=== PATIENT | male | born 1990 | race Caucasian/White ===

== ENCOUNTER 2017-03-28 17:38 | Emergency (ER) | payer MEDICAID, SELFPAY ==
[2017-03-28 17:48] VITALS: BP 135/89; PULSE 80; RESP 16; TEMP 36.7; O2SAT 99; BMI 29.2
--- NOTE | 2017-03-28 18:32 | RAD_ITS ---
XR Hand Min 3 Views INDICATION: PT STATED INJURY TO DIP JOINT AREA OF 3RD DIGIT WITH LACERATION COMPARISON: None TECHNIQUE: 3 views of the right hand FINDINGS: There is evidence of a linear fracture in the radial aspect of the distal phalanx of the right middle finger extending from the base to the tuft. There is no significant diastases at the fracture site. The fracture extends to the periphery to the articular surface. There is no evidence of dislocation. There is no evidence of radiopaque foreign body. RAD/Hand Min 3 Views IMPRESSION: Not significantly displaced fracture of the distal phalanx of the right middle finger. at 1903 Reported and signed by: Shelbi Peoples MD Electronically Signed: Shelbi Peoples MD at 18:02 EST Tel , Service support ,
--- NOTE | 2017-03-28 18:34 | ED.VISSUMM ---
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 The nail is intact the rest of the hand function are entirely normal Test Results: [] Emergency Department Course and Treatment: [] This we had copiously cleansed and irrigated the area, I recommended suturing but he declined that he wanted a Steri-Strip and a splint as he was concerned a suturing would affect his ability to execute his job, in any case at his request the area was again sterilely prepped irrigated and then a Steri-Strip was placed Per radiology shows a linear nondisplaced fracture distal phalanx I explained this to the patient I explained the concept of open fracture aluminum splint x-ray was obtained that was unremarkable his tetanus is up-to-date he was instructed on wound care ice elevation of follow-up his family doctor next few days, he indicates at work his job is very clean and that he does not work with any dirt or grinding but at home he can work on engines etc. and he understands need to keep the hand and finger completely clean and dry until he follows up as there is a risk of infection if he does not, he will be started on Keflex referred to orthopedics he will wear the splint until he seen and return for change in symptoms, I did caution him of the concept of open fracture infection osteomyelitis need to follow-up orthopedics and he understands Treatment Plan: [] Disposition: [] Home stable Impression: [] 1 cm right middle finger laceration, linear nondisplaced fracture distal phalanx right middle finger tender to trauma This note was generated with [employer] software. It may contain incorrect words, spelling, and punctuation that were not noted in review of the chart prior to signing ED Disposition - Plan for ED Patient: Chief Complaint: Laceration Instructions: ED Fx Finger Open, ED Laceration All, ED Laceration Hand Prescriptions: Cephalexin [Keflex] 500 mg PO Q6 #40 cap Referrals: Sharif Morrow DO [STAFF PHYSICIAN] - John Paul Rodriguez DO [Primary Care Provider] -
--- NOTE | 2017-03-28 18:37 | ED.DEP ---
ED Disposition - Plan for ED Patient: Chief Complaint: Laceration Instructions: ED Laceration All, ED Laceration Hand Referrals: John Paul Rodriguez DO [Primary Care Provider] -
--- NOTE | 2017-03-28 19:42 | ED.DEP ---
ED Disposition - Plan for ED Patient: Chief Complaint: Laceration Instructions: ED Laceration All, ED Laceration Hand, ED Fx Finger Open Prescriptions: Cephalexin [Keflex] 500 mg PO Q6 #40 cap Referrals: John Paul Rodriguez DO [Primary Care Provider] - Sharif Morrow DO [STAFF PHYSICIAN] -
[2017-03-28] MEDS: Cephalexin 250 MG Capsule 500 MG PO (20:06)
[2017-03-28 20:07] VITALS: BP 138/99; PULSE 91; RESP 17; O2SAT 98
--- NOTE | 2017-03-28 20:08 | ED.RN ---
DISCHARGE INSTRUCTIONS GIVEN TO AND REVIEWED WITH PATIENT, PATIENT DENIES QUESTIONS OR CONCERNS AND VOICES UNDERSTANDING OF DISCHARGE INSTRUCTIONS. PT AMBULATES OUT OF ROOM WITHOUT DIFFICULTY.
== END 2017-03-28 20:08 | disposition home or self-care (01) ==
LOC: ED 18:38
PROVIDERS: Emergency Provider Emergency Medicine; Family Provider Student in an Organized Health Care Education/Training Program; PCP Student in an Organized Health Care Education/Training Program
DX: S61.212A Laceration without foreign body of right middle finger without damage to nail, initial encounter (principal); S62.662B Nondisplaced fracture of distal phalanx of right middle finger, initial encounter for open fracture; X58.XXXA Exposure to other specified factors, initial encounter; Y93.9 Activity, unspecified; Y92.9 Unspecified place or not applicable
CPT/HCPCS: 73130; 99283

== ENCOUNTER 2017-06-14 23:44 | Emergency (ER) | payer SELFPAY ==
[2017-06-14 23:45] VITALS: BP 138/93; PULSE 92; RESP 15; TEMP 36.8; BMI 30.2
--- NOTE | 2017-06-14 23:58 | ED.VISSUMM ---
- ER Visit Summary Date of Service: 06/14/17 Chief Complaint: Left shoulder injury History of Present Illness: The patient is a 26 M [id number] presents for evaluation concerns left shoulder injury. 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 There is no head injuries. Mild tingling of the fingers. No neck pain. No back pain. No medications taken prior to arrival. History of finger fracture in foot fracture in the past. Cannot recall the orthopedist at this time. Allergies to IV dye. Has tolerated Vicodin in the past. Physical Examination: General: Alert and oriented ?3, no acute distress HEENT: Normocephalic, atraumatic. Moist mucosa membranes Neck: supple, nontender. No midline tenderness. Cardiovascular: Regular rate and rhythm, no murmurs Respiratory: Normal breath sounds, symmetric, no distress Back: Nontender. Abdomen: Soft, nontender, nondistended Extremities: Left upper extremity: There was tenderness in distal clavicle and AC joint.. There is no deformities grossly seen. There is no proximal shoulder tenderness. Skin intact. Neuro: no focal neurological deficits. Test Results: Clavicle x-ray: No fracture Emergency Department Course and Treatment: Ice was placed, given a Vicodin. X-ray reviewed by myself shows no fracture. Reevaluation more tenderness at the AC joint region. Discussed ligament sprain. Discuss symptomatic treatment with anti-inflammatories. Patient states he has ibuprofen at home. He declined a sling. He will follow-up with his PCP for reevaluation. Treatment Plan: [] Disposition: Discharge Impression: Left acromioclavicular ligament sprain This note was generated with [employer] dictation software. It may contain incorrect words, spelling, and punctuation that were not noted in review of the chart prior to signing ED Disposition - Plan for ED Patient: Disposition: Home or Assisted Living Chief Complaint: Upper Extremity Injury Diagnosis: Sprain of left acromioclavicular joint, initial encounter Instructions: ED Sprain AC Joint Referrals: John Paul Rodriguez DO [Primary Care Provider] - 5-7 Days
[2017-06-15] MEDS: HYDROcodone Bitartrate/Apap 5/325 Tablet PO (00:01)
--- NOTE | 2017-06-15 00:05 | RAD_ITS ---
STUDY: X-RAY - LEFT CLAVICLE REASON FOR EXAM: Male, 26 years old. Pain after trauma. TECHNIQUE: 2 view(s) of the clavicle. COMPARISON: Left shoulder June 01, 2016. FINDINGS: Normal clavicle. Normal acromioclavicular articulation. Normal visualized sternoclavicular articulation. Normal visualized pulmonary apex. RAD/Clavicle IMPRESSION: Normal x-ray examination of the clavicle. Electronically Signed: Richard Johnson MD at 1:24 EDT , Service support ,
== END 2017-06-15 00:26 | disposition home or self-care (01) ==
PROVIDERS: Emergency Provider Emergency Medicine; Family Provider Student in an Organized Health Care Education/Training Program; PCP Student in an Organized Health Care Education/Training Program
DX: S43.52XA Sprain of left acromioclavicular joint, initial encounter (principal); R20.2 Paresthesia of skin; W22.8XXA Striking against or struck by other objects, initial encounter; Y93.9 Activity, unspecified; Y92.9 Unspecified place or not applicable; Z72.0 Tobacco use
CPT/HCPCS: 73000; 99282

== ENCOUNTER → 2017-10-13 10:41 | Outpatient (CLI) | payer MEDICAID, SELFPAY | PROVIDERS: Family Provider Student in an Organized Health Care Education/Training Program; PCP Student in an Organized Health Care Education/Training Program; Visit Provider Nurse Practitioner Primary Care | DX: R00.2 Palpitations (principal); R07.9 Chest pain, unspecified | CPT/HCPCS: 93225; 93226 ==

== ENCOUNTER 2017-12-27 15:54 | Emergency (ER) | payer MEDICAID, SELFPAY ==
[2017-12-27 15:56] VITALS: BP 133/82; PULSE 90; RESP 18; TEMP 36.3; O2SAT 99; BMI 34.4
--- NOTE | 2017-12-27 16:20 | RAD_ITS ---
STUDY: X-RAY CHEST REASON FOR EXAM: Male, 27 years old. Cold and cough TECHNIQUE: PA and lateral views of the chest. COMPARISON: Previous study of 06/19/2016 FINDINGS: The lungs are clear and expanded. There is no demonstrated pleural abnormality. Normal size heart. Normal mediastinum and leonardo. Normal visualized pulmonary arteries. Normal visualized aortic arch and descending thoracic aorta. There is a thoracolumbar scoliosis. Normal visualized ribs, clavicles, and shoulders. There is no demonstrated abnormality of the visualized soft tissue structures of the upper abdomen. RAD/Chest PA and Lateral IMPRESSION: Thoracolumbar scoliosis. No acute cardiopulmonary disease process is seen. Electronically Signed: Kyle Lewis MD at 17:12 EDT , Service support ,
--- NOTE | 2017-12-27 16:22 | ED.VISSUMM ---
- ER Visit Summary Date of Service: 12/27/17 Chief Complaint: Cough and congestion History of Present Illness: The patient is a 27 M who presents with cough and congestion that has been getting worse over the past 4 days. Patient states he went to urgent care today and was referred here because they are unable to do any x-rays after 2 PM. Patient states he has been coughing up some blood-streaked sputum over the past couple days. Patient admits to a sore throat that is worse with laying flat. Patient also admits to some nasal congestion and rhinorrhea. Patient admits to some sinus pressure. Physical Examination: Vital signs are stable. Patient is afebrile. Patient is in no acute distress. Oral mucosa is pink and moist. Nasal mucosa is congested. Neck is supple. Trachea is midline. There is no JVD or lymphadenopathy noted. Heart was regular rate and rhythm. Lungs are clear but diminished bilaterally. There is good respiratory effort noted. Abdomen is soft. Bowel sounds are normal. There is no tenderness. Cranial nerves II through XII are intact. There are no focal motor or sensory deficits noted. The remaining physical exam is within normal limits. Test Results: PA and lateral chest x-ray was obtained. There is no acute cardiopulmonary process. Emergency Department Course and Treatment: Patient was given a DuoNeb aerosol here. Patient was advised that this is most likely a viral upper respiratory infection. Patient was given prescription for Humibid DM. Patient was instructed to follow-up with his primary care physician in 7-10 days. Patient understood and was agreeable with the plan. All questions were answered. Disposition: Discharge home Impression: Upper respiratory infection This note was generated with [employer] dictation software. It may contain incorrect words, spelling, and punctuation that were not noted in review of the chart prior to signing ED Disposition - Plan for ED Patient: Disposition: Home or Assisted Living Chief Complaint: Cold Sx Diagnosis: Upper respiratory infection with cough and congestion Instructions: ED Upper Resp Infec No Abx Tx Prescriptions: Guaifenesin/D-Methorphan Hb [Humibid Dm] 1 tab PO Q12H PRN #20 tab.sr.12h PRN Reason: Cough Referrals: John Paul Rodriguez DO [Primary Care Provider] -
--- NOTE | 2017-12-27 16:25 | ED.DCSUM_ITS ---
- ER Visit Summary Date of Service: 12/27/17 Chief Complaint: Cough and congestion History of Present Illness: The patient is a 27 M who presents with cough and congestion that has been getting worse over the past 4 days. Patient states he went to urgent care today and was referred here because they are unable to do any x-rays after 2 PM. Patient states he has been coughing up some blood- streaked sputum over the past couple days. Patient admits to a sore throat that is worse with laying flat. Patient also admits to some nasal congestion and rhinorrhea. Patient admits to some sinus pressure. Physical Examination: Vital signs are stable. Patient is afebrile. Patient is in no acute distress. Oral mucosa is pink and moist. Nasal mucosa is congested. Neck is supple. Trachea is midline. There is no JVD or lymphadenopathy noted. Heart was regular rate and rhythm. Lungs are clear but diminished bilaterally. There is good respiratory effort noted. Abdomen is soft. Bowel sounds are normal. There is no tenderness. Cranial nerves II through XII are intact. There are no focal motor or sensory deficits noted. The remaining physical exam is within normal limits. Test Results: PA and lateral chest x-ray was obtained. There is no acute car diopulmonary process. Emergency Department Course and Treatment: Patient was given a DuoNeb aerosol here. Patient was advised that this is most likely a viral upper respiratory infection. Patient was given prescription for Humibid DM. Patient was instructed to follow-up with his primary care physician in 7-10 days. Patient understood and was agreeable with the plan. All questions were answered. Disposition: Discharge home Impression: Upper respiratory infection This note was generated with [employer] dictation software. It may contain incorrect words, spelling, and punctuation that were not noted in review of the chart prior to signing ED Disposition - Plan for ED Patient: Disposition: Home or Assisted Living Chief Complaint: Cold Sx Diagnosis: Upper respiratory infection with cough and congestion Instructions: ED Upper Resp Infec No Abx Tx Prescriptions: Guaifenesin/D-Methorphan Hb [Humibid Dm] 1 tab PO Q12H PRN #20 tab.sr.12h PRN Reason: Cough Referrals: John Paul Rodriguez DO [Primary Care Provider] -
[2017-12-27 16:47] VITALS: PULSE 92; RESP 19
[2017-12-27] MEDS: Ipratropium/Albuterol Sulfate 3 ML AMPUL.NEB INHALATION (16:47)
== END 2017-12-27 18:05 | disposition home or self-care (01) ==
PROVIDERS: Emergency Provider Emergency Medicine; Family Provider Student in an Organized Health Care Education/Training Program; PCP Student in an Organized Health Care Education/Training Program
DX: J06.9 Acute upper respiratory infection, unspecified (principal); Z72.0 Tobacco use
CPT/HCPCS: 71046; 94640; 99282

== ENCOUNTER 2018-04-27 00:46 | Emergency (ER) | payer MEDICAID, SELFPAY ==
[2018-04-27 00:47] VITALS: BP 137/104; PULSE 99; RESP 16; TEMP 36.9; O2SAT 97; BMI 32.3
--- NOTE | 2018-04-27 00:48 | RAD_ITS ---
STUDY: X-RAY - THORACIC SPINE REASON FOR EXAM: Male, 27 years old. Back pain TECHNIQUE: 3 view(s) of the thoracic spine were obtained. COMPARISON: None. FINDINGS: There is an increase in the normal thoracic kyphosis. There is dextroscoliosis of the lower thoracic. 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 There is 8mm posterior displacement of T12, it appears worse when compared to the study from June 01, 2016 it measured previously 6 mm. The soft tissue structures are unremarkable. 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 There is 8mm posterior displacement of T12, it appears worse when compared to the study from June 01, 2016 it measured previously 6 mm. Further evaluation by MRI would be recommended to exclude spinal cord compression. Electronically Signed: Fernando Benitez MD at 2:09 EST Tel , Service support ,
--- NOTE | 2018-04-27 00:51 | ED.VISSUMM ---
- ER Visit Summary Date of Service: 04/27/18 Chief Complaint: Back pain History of Present Illness: The patient is a 27 M presents to the emergency department back pain. 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 He states that he had sudden onset pain in his back. He states it is very tight and hurts to move. He has had similar pain in the past. He states that he does get recurrent back injuries from his line of work. He is never had back surgery. The pain does not radiate down his legs. He states he was having some tightness in his chest because of the pain in his back. This happened immediately when he was lifting. The pain does not radiate. He states he feels like he cannot get comfortable. He denies any weakness, numbness, or change in gait. Physical Examination: Afebrile, vitals unremarkable. Well-appearing male no acute distress. Head is normocephalic, atraumatic. Pupil's equal round reactive, extraocular muscles intact. Neck supple. Heart regular rate and rhythm. Lungs clear, chest nontender. Abdomen soft, nontender, nondistended. No pulsatile mass. Patient has paraspinal tenderness in the thoracic and lumbar area, but no bony tenderness. Straight leg raise is negative bilaterally. 2+ symmetric lower extremity pulses. 2+ reflexes. No clonus. No weakness of dorsiflexion, plantar flexion, or extensor hallucis longus bilaterally. Test Results: [] Emergency Department Course and Treatment: The patient had sudden onset pain when he was moving a heavy motor. He has no red flag symptoms. He has a normal steady gait. He has normal pulses in his lower extremities. He has normal reflexes. He did have some tenderness in the lower thoracic spine. Plain films were obtained. 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 There is no compression fracture. The patient was treated with anti-inflammatories and antispasmodics. He is more comfortable. He declined any other analgesics. At this time, I do feel that he is safe for outpatient therapy. He was counseled on concerning symptoms and reasons to return. Treatment Plan: [] Disposition: Discharge Impression: Acute thoracic strain This note was generated with [employer] software. It may contain incorrect words, spelling, and punctuation that were not noted in review of the chart prior to signing ED Disposition - Plan for ED Patient: Instructions: ED Sprain Thoracic Spine Prescriptions: Ibuprofen [Motrin] 800 mg PO TID PRN PRN #20 tab PRN Reason: Pain Cyclobenzaprine [Flexeril] 10 mg PO TID PRN #20 tab PRN Reason: Muscle Spasm Referrals: John Paul Rodriguez DO [Primary Care Provider] -
[2018-04-27] MEDS: Ketorolac 60 MG/2 ML Vial IM (01:16)
[2018-04-27] MEDS: Orphenadrine 60 MG/2 ML Ampul IM (01:16)
--- NOTE | 2018-04-27 01:33 | EKG12_ITS ---
Test Reason : BACK PAIN/CP Blood Pressure : / mmHG Vent. Rate : 093 BPM Atrial Rate : 093 BPM P-R Int : 200 ms QRS Dur : 090 ms QT Int : 348 ms P-R-T Axes : 032 005 020 degrees QTc Int : 432 ms Normal sinus rhythm with sinus arrhythmia Poor R wave progression Confirmed by VREA GRIFFITHS, JENNIFER ([id number]), film editor supervisor EVA GELLER ([id number]) on 04/28/2018 10:07:43 AM Referred By: PRIYANKA Confirmed By:JENNIFER GAMEZ MD
[2018-04-27 01:41] VITALS: BP 135/89; PULSE 78; RESP 16; O2SAT 97
== END 2018-04-27 01:43 | disposition home or self-care (01) ==
PROVIDERS: Emergency Provider Emergency Medicine; Family Provider Student in an Organized Health Care Education/Training Program; PCP Student in an Organized Health Care Education/Training Program
DX: S29.012A Strain of muscle and tendon of back wall of thorax, initial encounter (principal); X50.0XXA Overexertion from strenuous movement or load, initial encounter; Y93.89 Activity, other specified; Y92.9 Unspecified place or not applicable; Z72.0 Tobacco use
CPT/HCPCS: 72072; 93005; 96372; 99282

== ENCOUNTER 2018-07-30 20:27 | Emergency (ER) | payer MEDICAID, SELFPAY ==
[2018-07-30 20:28] VITALS: BP 153/81; PULSE 96; RESP 16; TEMP 36.5; O2SAT 98; BMI 29.4
--- NOTE | 2018-07-30 20:45 | RAD_ITS ---
STUDY: X-RAY - LEFT ANKLE REASON FOR EXAM: Male, 28 years old. Status post fall TECHNIQUE: 3 view(s) of the ankle. COMPARISON: None. FINDINGS: Normal visualized distal tibia and fibula. Normal medial and lateral malleoli. Normal tibiotalar articulation and ankle mortise. Normal visualized talus and calcaneus. The visualized subtalar, talonavicular, calcaneocuboid and tarsal articulations are normal. Visualized soft tissue edema along the lateral aspect of the foot. A fracture line is not definitively identified. RAD/Ankle min 3 Views IMPRESSION: Soft tissue edema lateral aspect of the foot no definitive visualized fracture. Electronically Signed: Adela Blanco MD at 21:18 EDT Tel , Service support ,
--- NOTE | 2018-07-30 20:45 | ED.VISSUMM ---
- ER Visit Summary Date of Service: 07/30/18 Chief Complaint: Left foot ankle injury History of Present Illness: The patient is a 28 M who was at work today. He was walking on uneven blacktop when he sustained an inversion injury. He notes pain laterally on the ankle and the foot. He was wearing his work boots which do not provide any significant ankle or lower leg stability. He denies any pain near his knee (near the fibular head) Physical Examination: Afebrile vital signs are stable Gen: Well-nourished well-developed Head: Normocephalic atraumatic Eyes: Perrl EOMI ENT: TMs clear no rhinorrhea moist mucous membranes Neck: Supple no lymphadenopathy no JVD nontender CVS: Regular rate rhythm no murmurs normal S1-S2 Respiratory: No distress clear to auscultation bilaterally chest nontender Abdomen: Soft nontender nondistended normal bowel sounds no masses Back: Nontender Extremity: There is no fibular head pain. No tibial shaft pain. There is tenderness over the lateral malleolus and over the fifth metatarsal. There is swelling and ecchymosis noted laterally on the foot and ankle the joint appears stable. Skin: Normal color no rash Neuro: alert orientated ?3 CN II-XII intact normal strength sensation reflexes gait cerebellar Psych: Normal affect normal mood Test Results: Foot and ankle films were obtained. No fractures identified Emergency Department Course and Treatment: Wrap will be applied. Patient is to aiyana wrap and ice at home. Follow-up with primary care if not improved in 10 to 14 days Impression: 1. Right foot and ankle ligamentous sprain This note was generated with [employer] dictation software. It may contain incorrect words, spelling, and punctuation that were not noted in review of the chart prior to signing ED Disposition - Plan for ED Patient: Disposition: Home or Assisted Living Instructions: ED Sprain Ankle W X Ray Referrals: John Paul Rodriguez DO [Primary Care Provider] - 10-14 Days if not better
--- NOTE | 2018-07-30 20:52 | RAD_ITS ---
STUDY: X-RAY - LEFT FOOT CLINICAL: Male, 28 years old. Status post fall TECHNIQUE: 3 view(s) of the foot. COMPARISON: None. FINDINGS: Normal talus, calcaneus, and tarsal bones. Normal visualized subtalar, talonavicular, calcaneocuboid, tarsal and tarsometatarsal articulations. Normal metatarsi. Normal metatarsophalangeal joint of the great toe. Normal tibial and fibular sesamoid bones. Normal interphalangeal joint of the great toe. Normal phalanges of the great toe. Normal second through fifth metatarsophalangeal joints. Normal interphalangeal joints and phalanges of the lesser toes. There is mild soft tissue edema on the lateral aspect of the foot without visualized fracture. RAD/Foot min 3 Views IMPRESSION: Soft tissue edema, no visualized fracture. Electronically Signed: Adela Blanco MD at 21:17 EDT Tel , Service support ,
[2018-07-30 21:42] VITALS: BP 153/85; PULSE 89; RESP 16; O2SAT 97
== END 2018-07-30 21:42 | disposition home or self-care (01) ==
PROVIDERS: Emergency Provider Emergency Medicine; Family Provider Student in an Organized Health Care Education/Training Program; PCP Student in an Organized Health Care Education/Training Program
DX: S93.402A Sprain of unspecified ligament of left ankle, initial encounter (principal); S93.602A Unspecified sprain of left foot, initial encounter; X50.1XXA Overexertion from prolonged static or awkward postures, initial encounter; Y93.01 Activity, walking, marching and hiking; Y92.9 Unspecified place or not applicable; J45.909 Unspecified asthma, uncomplicated; M79.7 Fibromyalgia; Z72.0 Tobacco use
CPT/HCPCS: 73610; 73630; 99282

== ENCOUNTER 2019-08-05 11:38 | Observation (INO) | payer MEDICAID, SELFPAY ==
[2019-08-05] VITALS (9 sets, daily range): BP systolic 130–149; BP diastolic 86–97; PULSE 73–94; RESP 18–20; TEMP 35.9–36.8; O2SAT 96–98; BMI 34.2; BMI 30.9; BMI 31.0
--- NOTE | 2019-08-05 12:08 | EKG12_ITS ---
Test Reason : Blood Pressure : / mmHG Vent. Rate : 087 BPM Atrial Rate : 087 BPM P-R Int : 196 ms QRS Dur : 100 ms QT Int : 376 ms P-R-T Axes : 020 019 009 degrees QTc Int : 452 ms Normal sinus rhythm Normal ECG Confirmed by CON GRIFFITHS, LAURA ([id number]), dictionary editor YADIRA ELIZALDE ([id number]) on 08/08/2019 1:28:28 PM Referred By: DULCE Confirmed By:LAURA ANDUJAR MD
--- NOTE | 2019-08-05 12:20 | RAD_ITS ---
STUDY: X-RAY CHEST REASON FOR EXAM: Male, 29 years old. WORSENING CHEST PAIN OVER LAST 1.5 WEEK TECHNIQUE: Single AP portable view of the chest. COMPARISON: None. FINDINGS: The lungs are clear and expanded. There is no demonstrated pleural abnormality. Normal size heart. Normal mediastinum and leonardo. Normal visualized pulmonary arteries. Normal visualized aortic arch and descending thoracic aorta. There is a mild levoscoliosis of the thoracic spine. Normal visualized ribs, clavicles, and shoulders. There is no demonstrated abnormality of the visualized soft tissue structures of the upper abdomen. RAD/Chest 1 View (Portable) IMPRESSION: Normal x-ray examination of the chest. Electronically Signed: Kyree Hogan, at 12:33 EDT , Service support ,
[2019-08-05 12:24] LABS: Absolute Lymphocyte Count 2.46 X10^3/uL (0.83-4.51); Absolute Neutrophil Count 4.7 X10^3/uL (2.0-7.7); Basophil# 0.07 X10^3/uL; Basophil% 0.8 % (0-1); Eosinophil# 0.22 X10^3/uL; Eosinophils% 2.6 % (0-5); Hematocrit 44.7 % (40-54); Hemoglobin 14.7 g/dL (13.0-16.5); Lymphocyte # 2.46 X10^3/ul (4.0); Lymphocyte % 29.6 % (19-41); Mean Corp Hgb Conc 32.9 g/dL (32-36); Mean Corpuscular Hgb 28.1 pg (27.0-32.0); Mean Corpuscular Volume 85.5 fL (80-94); Mean Platelet Vol. 9.9 fl (6.2-12.0); Monocyte# 0.83 X10^3/uL; NRBC Flagged by Analyzer 0 % (0-5); Neutrophil % 56.5 % (47-70); Platelet Count 312 K/mm3 (150-450); RBC Distribution Width CV 11.9 % (11.6-14.6); Red Blood Count 5.23 M/mm3 (4.6-6.2); White Blood Count 8.3 K/mm3 (4.4-11.0)
[2019-08-05 12:46] LABS: D-Dimer Quantitative (DVT/PE) 0.35 FEU/ug/m (0.27-0.49)
[2019-08-05 12:51] LABS: AST(SGOT) 15 U/L (15-37); Alanine Aminotransfer ALT/SGPT 37 U/L (16-61); Albumin, Serum 3.8 g/dL (3.2-5.0); Alkaline Phosphatase 124 U/L (45-117); Anion Gap 4 (5-15); BUN 12 mg/dL (7-18); BUN/Creat Ratio 10.3 RATIO (10-20); Bilirubin, Direct 0.13 mg/dL (0.00-0.30); Calcium,Total 9.7 mg/dL (8.5-10.1); Chloride 105 mmol/L (98-107); Creatinine, Serum 1.16 mg/dL (0.70-1.30); EST Glomerular Filtration Rate 79 mL/min (>60); Est Glom Filt Rate - Afr Amer 96 mL/min (>60); Estimated Creatinine Clearance 100.08 ml/min; Globulin 3.3 g/dL (2.2-4.2); Glucose 132 mg/dL (74-106); Potassium 3.7 mmol/L (3.5-5.1); Protein, Total 7.1 g/dL (6.4-8.2); Sodium Level 140 mmol/L (136-145)
[2019-08-05 13:00] LABS: BNP,B-Type NATRIURETIC PEPTIDE 3.1 pg/mL (0-100)
[2019-08-05] MEDS: Pantoprazole Sodium 40 MG Tablet PO (13:40)
--- NOTE | 2019-08-05 13:51 | ED.DCSUM_ITS ---
History of Present Illness Chief Complaint: Chest Pain Informant: Patient Onset: Weeks Quality: Pressure Location: Substernal Current Severity: Mild Maximum Severity: Moderate Worsened By: Exertion Relieved By: Rest Associated Symptoms: Dyspnea, Palpitations Narrative: Patient is a 29-year-old male with history of tobacco use, some type of cardiac valve issue, possible hypertension and diabetes presenting with worsening dyspnea on exertion and chest pain. Patient states he gets pain that he describes as a pressure in the center of his chest and is worse with exertion. He gets associated palpitations. He states he has had mild symptoms of this for the past year and a half but is been significantly worse over the past 2-1/2 weeks. He also gets a little bit of pain in his back. He also reports that he gets episodes of weakness in his hands. 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 This is bilateral. There is no associated numbness. He denies any neck pain. States he does have acid reflux and thinks he might have Crohn's disease. He states he is been out of all of his medications because he is not been able get refills due to everything being closed with coronavirus. He does have associated nausea and alternates between constipation and diarrhea. He denies any blood in his stool. He denies any vomiting. He denies any swelling of his legs. Patient states that he really wants to figure out what is going on but is having a hard time following up because he still busy at work and with family. He notes he has had increased rest in his life lately as well. CVD Risk Factors: Hypertension, Family History 1' </=55, Smoking PE Risk Factors: Negative for: Recent Travel/Surgery, Recenet Immobilization, Prior DVT or PE, Cancer, OCP + Smoking + >/=35 Past Medical History - Allergies and Home Meds Allergies/Adverse Reactions: Allergies Iodinated Contrast Media Allergy (Severe, Verified 08/05/19 15:40) Hives Past Medical History: - - GERD, HTN, valve disorder, possbile diabetes Surgical History: no surgical history Lives: Spouse/ Significant Other, With Family Smoking Status: Heavy Smoker (>10/day) Alcohol: Occasional Drugs: None - Family History Maternal Family History: Reports: Heart Disease Paternal Family History: Reports: Heart Disease Review of Systems General: Denies: Chills, Fever, Sweats Eyes: Denies: Visual changes - bilaterally, Diplopia ENT: Denies: Rhinorrhea, Sore throat Cardiovascular: Reports: Chest pain, Palpitations, Heart racing Respiratory: Reports: Dyspnea, Dyspnea on exertion. Denies: Cough, Orthopnea Gastrointestinal: Reports: Abdominal pain - reflux, Nausea. 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 Denies: Headache, Numbness Physical Exam Vital Signs/Narrative: Vital Signs Temp Pulse Resp BP Pulse Ox 08/05/19 13:42 81 18 139/97 H 96 08/05/19 11:40 96.7 F L 90 18 149/86 H 98 Inital Vital Signs reviewed: Yes General: Well nourished, Well developed, No Acute Distress Head: Normocephalic, Atraumatic Eyes: Perrl, EOMI ENT: Moist mucous membranes, No rhinorrhea Neck: Supple, Nontender Cardiovascular: Regular rate, Regular rhythm, No murmurs Respiratory: No distress, CTA bilaterally, Chest nontender. Negative for: Rho nchi, Wheezing Abdomen: Soft, Nontender, Nondistended, Normal bowel sounds Back: Nontender, Normal Inspection Extremities: Nontender, No edema Skin: Normal color, No rash Neurological: Alert, Oriented x3, Cranial nerves II-XII grossly intact, Normal Strength, Normal Sensation Psychological: Normal affect, Normal Mood Diagnostic/Tx/Re-eval Chest X-Ray - ED: 1 View Clinical Impression(s) from Imaging Studies Chest X-Ray 08/05/19 12:20 IMPRESSION: Normal x-ray examination of the chest. Electronically Signed: Kyree Hogan, at 12:33 EDT , Service support , Laboratory Data 08/05/19 08/05/19 08/05/19 12:15 12:15 12:15 WBC 8.3 RBC 5.23 Hgb 14.7 Hct 44.7 MCV 85.5 MCH 28.1 MCHC 32.9 RDW Std Deviation 37.0 RDW Coeff of Colten 11.9 Plt Count 312 MPV 9.9 Immature Gran % (Auto) 0.500 Neut % (Auto) 56.5 Lymph % (Auto) 29.6 [place] % (Auto) 10.0 Eos % (Auto) 2.6 Baso % (Auto) 0.8 Absolute Neuts (auto) 4.7 Absolute Lymphs (auto) 2.46 Nucleated RBC % 0 D-Dimer Quant (PE/DVT) 0.35 Sodium 140 Potassium 3.7 Chloride 105 Carbon Dioxide 31.0 Anion Gap 4 L BUN 12 Creatinine 1.16 Estim Creat Clear Calc 100.08 Est GFR (MDRD) Af Amer 96 Est GFR (MDRD) Non-Af 79 BUN/Creatinine Ratio 10.3 Glucose 132 H Calcium 9.7 Total Bilirubin 0.40 Direct Bilirubin 0.13 AST 15 ALT 37 Alkaline Phosphatase 124 H Troponin I < 0.015 B-Natriuretic Peptide Total Protein 7.1 Albumin 3.8 Globulin 3.3 TSH 2.30 08/05/19 12:15 WBC RBC Hgb Hct MCV MCH MCHC RDW Std Deviation RDW Coeff of Colten Plt Count MPV Immature Gran % (Auto) Neut % (Auto) Lymph % (Auto) [place] % (Auto) Eos % (Auto) Baso % (Auto) Absolute Neuts (auto) Absolute Lymphs (auto) Nucleated RBC % D-Dimer Quant (PE/DVT) Sodium Potassium Chloride Carbon Dioxide Anion Gap BUN Creatinine Estim Creat Clear Calc Est GFR (MDRD) Af Amer Est GFR (MDRD) Non-Af BUN/Creatinine Ratio Glucose Calcium Total Bilirubin Direct Bilirubin AST ALT Alkaline Phosphatase Troponin I B-Natriuretic Peptide 3.1 Total Protein Albumin Globulin TSH - Rhythm Strip Rhythm Strip: Sinus Rhythm Rate: 87 Ectopy: None - EKG Initial EKG Interpretation: Sinus Rhythm, - - Rate of 87 Normal intervals Normal axis Nonspecific T wave inversion in 3, V1 and V2 ADONAY Risk: >/= 3RF Score: 1 - Medical Decision Making Patient is evaluated for worsening episodes of dyspnea on exertion and chest pain with exertion. Patient thinks he has cardiac risk factors include hypertension or diabetes but he has been off all of his medications. He also thinks that he has mitral valve does not open properly but is not sure if that is the valve. He is quite concerned that he needs a stress test and other something more going on with his heart is causing his symptoms but he is not had time to do it. He is requesting admission for stress test if possible. Patient's cardiac work-up is largely unremarkable. He has some nonspecific EKG changes and multiple cardiac risk factors but otherwise has a normal troponin. His d-dimer is negative. He does not have any signs of fluid overload or acute infection. Did have a significant electrolyte abnormalities. Patient will be brought in for observation and further cardiac testing. He is agreeable with this plan. He is stable for the general medical floor. ED Disposition - Plan for ED Patient: Disposition: Acute Care Hospital [facility] Diagnosis: Chest pain, BMI 34.0-34.9,adult, Hypertension, Tobacco dependence, Dyspnea on exertion
--- NOTE | 2019-08-05 14:00 | PCM.HP.STD ---
Problem List (1) Chest pain Status: Acute (2) Hypertension Status: Chronic (3) BMI 34.0-34.9,adult Status: Chronic (4) DM2 (diabetes mellitus, type 2) Status: Chronic (5) Sleep apnea Status: Chronic (6) Tobacco dependence Status: Chronic History of Present Illness Date of Admission: 08/05/19 Chief Complaint: Chest pain The patient is a 29 year old M with multiple comorbidities for his age including hypertension, sleep apnea diabetes mellitus type 2 apparently noncompliant with therapy who presented with chest pain. Patient reported 2-week history of chest pain located in the retrosternal region. Patient also did admit to exertional dyspnea. Patient states he has been under tremendous stress due to the nature of his job. He finally decided to present to the ED. Initial set of cardiac enzymes EKG and d-dimer were negative. Given his risk factors he was admitted to a monitored bed for subsequent evaluation. Past Medical History Past Medical History (Chronic Problems): Chronic Problems Hypertension (Chronic) BMI 34.0-34.9,adult (Chronic) DM2 (diabetes mellitus, type 2) (Chronic) Sleep apnea (Chronic) Tobacco dependence (Chronic) Allergies Iodinated Contrast Media Allergy (Verified 08/05/19 11:43) Hives Home Medications: Ambulatory Orders Medication Instructions Recorded NK 07/30/18 Smoking Status: Current every day smoker - *Family History Maternal History Items: Heart Disease Paternal History Items: Heart Disease Review of Systems Constitutional: Denies: Anorexia, Chills, Fever, Night Sweats, Weight Change HEENT: Denies: Head Aches, Sinus Congestion, Sinus Drainage Cardiovascular: Reports: Chest Pain. Denies: Orthopnea, Palpitations Respiratory: Reports: Shortness of Breath, Shortness of breath upon exertion. Denies: Sputum production Gastrointestinal: Denies: Abdominal Pain, Hematemesis, Hematochezia, Nausea, Melena, Vomiting Genitourinary: Denies: Dysuria, Frequency, Hematuria, Urgency Musculoskeletal: Denies: Joint Pain, Joint Tenderness Skin: Denies: Rash Neurological: Denies: Focal weakness, Tingling Psychiatric: Denies: Homicidal Ideations, Suicidal Ideations Hematologic/ Lymphatic: Denies: Easy Bruising, Easy Bleeding VTE Information - Inpt Only VTE Present on Admission: No VTE Mechan Device Prophylaxis: None VTE Pharm Prophylaxis ordered?: No Reason prophylaxis not ordered:: Treatment Not Indicated Patient Problems: Active and Suspected Problems Chest pain (Acute) Objective: GENERAL: cooperative HEENT: Atraumatic; EYES; Anicteric, Normal Conjunctiva NECK; supple, normal thyroid, RESPIRATORY: Diminished to auscultation CARDIOVASCULAR: Regular S1 S2, GI: soft, normoactive bowel sounds, : No Renal angle tenderness; EXTREMITIES: No edema, no clubbing, MUSCULOSKELETAL: no muscle waisting NEURO: Awake; no lateralizing signs. SKIN: No Rash PSYCH; Flat affect - Physical Exam Vitals/I&O's: Vital Signs Temp Pulse Resp BP Pulse Ox 96.7 F L 81 18 139/97 H 96 08/05/19 11:40 08/05/19 13:42 08/05/19 13:42 08/05/19 13:42 08/05/19 13:42 Oxygen Delivery Method Room Air Weight: 111.13 kg Body Mass Index (BMI) 34.2 Laboratory Results 08/05/19 12:15: WBC 8.3, RBC 5.23, Hgb 14.7, Hct 44.7, MCV 85.5, MCH 28.1, MCHC 32.9, RDW Std Deviation 37.0, RDW Coeff of Colten 11.9, Plt Count 312, MPV 9.9, Immature Gran % (Auto) 0.500, Neut % (Auto) 56.5, Lymph % (Auto) 29.6, [place] % (Auto) 10.0, Eos % (Auto) 2.6, Baso % (Auto) 0.8, Absolute Neuts (auto) 4.7, Absolute Lymphs (auto) 2.46, Nucleated RBC % 0 08/05/19 12:15: D-Dimer Quant (PE/DVT) 0.35 08/05/19 12:15: Sodium 140, Potassium 3.7, Chloride 105, Carbon Dioxide 31.0, Anion Gap 4 L, BUN 12, Creatinine 1.16, Estim Creat Clear Calc 100.08, Est GFR (MDRD) Af Amer 96, Est GFR (MDRD) Non-Af 79, BUN/Creatinine Ratio 10.3, Glucose 132 H, Calcium 9.7, Total Bilirubin 0.40, Direct Bilirubin 0.13, AST 15, ALT 37, Alkaline Phosphatase 124 H, Troponin I < 0.015, Total Protein 7.1, Albumin 3.8, Globulin 3.3, TSH 2.30 08/05/19 12:15: B-Natriuretic Peptide 3.1 Assessment/Plan All Active Problems Chest pain (Acute) Is a 29-year-old gentleman presented with exertional chest pain 1. Chest pain ?Admitted to monitored bed ordered serial cardiac enzymes to rule out RI patient to undergo a nuclear stress test if RI is ruled out. Patient also did complain of significant shortness of breath with activity ordered a 2D echo as part of his evaluation 2. Essential hypertension ?Patient was previously on blood pressure medications for which she was taking of them to him. Pressure on admission was slightly elevated we will continue to monitor and start antihypertensives if patient blood pressure remains elevated 3. Diabetes mellitus type 2 ?Patient apparently noncompliant with meds currently on diet. Was placed on Accu-Cheks before meals and at bedtime with sliding scale coverage ordered hemoglobin A1c 4. Obstructive sleep apnea ?Patient noncompliant with CPAP therapy 5. Obesity with BMI of 34.2 ?Weight loss advised 6. Tobacco dependence - Counseled on cessation, offered nicotine patch for tobacco cravings 7. DVT prophylaxis ?Low risk
--- NOTE | 2019-08-05 14:49 | NURSING ---
Addendum entered by Maggie Domingo 08/05/19 14:52: DR BRAVO Original Note: 121 CP
--- NOTE | 2019-08-05 15:36 | EKG12_ITS ---
Test Reason : CP ADMIT Blood Pressure : / mmHG Vent. Rate : 075 BPM Atrial Rate : 075 BPM P-R Int : 206 ms QRS Dur : 102 ms QT Int : 402 ms P-R-T Axes : 017 016 004 degrees QTc Int : 448 ms Normal sinus rhythm Normal ECG When compared with ECG of 05-AUG-2019 11:48, MANUAL COMPARISON REQUIRED, DATA IS UNCONFIRMED Confirmed by CON GRIFFITHS, LAURA ([id number]), mapping editor CELESTINA WHITE ([id number]) on 08/09/2019 10:38:39 AM Referred By: LAWRENCE Confirmed By:LAURA ANDUJAR MD
--- NOTE | 2019-08-05 15:36 | ECHOD_ITS ---
Reason For Study: SOB Procedure This was a 2D Doppler, Color Flow transthoracic echocardiogram. Exam performed portable in patient room. Left Ventricle Normal LV size. Left ventricular systolic function is normal. The estimated ejection fraction is 60 %. No regional wall motion abnormalities noted. Right Ventricle Normal RV size. Normal systolic function. Atria Normal left atrium. Normal right atrium. Mitral Valve Normal mitral valve. Tricuspid Valve Normal tricuspid valve. Mild tricuspid valve insufficiency. Aortic Valve Normal aortic valve. Trisinus/trileaflet aortic valve. Pulmonic Valve Normal pulmonic valve. Great Vessels Normal aortic root. The pulmonary artery is normal size. Normal inferior vena cava. Pericardium/Pleural No pericardial effusion. MMode/2D Measurements & Calculations LVIDd: 5.1 cm IVSd: 0.90 cm Ao root diam: 2.7 cm LVIDs: 2.5 cm LVPWd: 0.91 cm RVDd: 3.2 cm FS: 51.8 % LAV(MOD-bp): 32.8 ml LA A4 area: 14.1 cm2 LA dimension(2D): 3.8 cm LAV(MOD-bp) Indexed: 14.3 ml/m2 LAV(MOD-sp2): 28.9 ml LAV(MOD-sp4): 33.3 ml RA A4 area: 9.4 cm2 Doppler Measurements & Calculations MV E max bar: 85.2 cm/sec Lat Peak E' Bar: 16.5 cm/sec Med Peak E' Bar: 9.8 cm/sec MV A max bar: 59.1 cm/sec E/E' lat: 5.2 E/E' med: 8.7 MV E/A: 1.4 Ao V2 max: 148.6 cm/sec LV V1 max: 97.3 cm/sec PA V2 max: 114.6 cm/sec Ao max P.8 mmHg LV V1 max P.8 mmHg TR max bar: 192.4 cm/sec TR max P.8 mmHg Interpretation Summary Normal LV size. Left ventricular systolic function is normal. The estimated ejection fraction is 60 %. Mild tricuspid valve insufficiency. Ordering Physician: Alejandro Joseph Referring Physician: John Paul Rodriguez Performed By: Courtney Nava RDCS
[2019-08-05 16:41] LABS: Bedside Glucose 81 mg/dL (70-110)
[2019-08-05 16:49] LABS: Hemoglobin A1c 5.3 % (3.8-5.6)
[2019-08-05 21:40] LABS: Bedside Glucose 108 mg/dL (70-110)
[2019-08-06] VITALS (7 sets, daily range): BP systolic 127–138; BP diastolic 69–83; PULSE 71–98; RESP 15–16; TEMP 36.3–36.8; O2SAT 97–100
--- NOTE | 2019-08-06 00:51 | NURSING ---
Handoff given to Kvng Hendricks RN.
--- NOTE | 2019-08-06 05:55 | EKG12_ITS ---
Test Reason : AM EKG Blood Pressure : / mmHG Vent. Rate : 076 BPM Atrial Rate : 076 BPM P-R Int : 208 ms QRS Dur : 096 ms QT Int : 406 ms P-R-T Axes : 021 025 012 degrees QTc Int : 456 ms Normal sinus rhythm Normal ECG When compared with ECG of 05-AUG-2019 15:59, MANUAL COMPARISON REQUIRED, DATA IS UNCONFIRMED Confirmed by CON GRIFFITHS, LAURA ([id number]), assistant film editor CELESTINA WHITE ([id number]) on 08/09/2019 10:19:01 AM Referred By: Mukesh COURTNEY Confirmed By:LAURA ANDUJAR MD
[2019-08-06 06:45] LABS: Bedside Glucose 106 mg/dL (70-110)
--- NOTE | 2019-08-06 10:28 | STRESSREP_ITS ---
Stress Test Report Exercise myocardial perfusion stress test. 29-year-old male with a history of chest pain. Stress protocol: Resting EKG demonstrates normal sinus rhythm with a rate of 72 bpm normal intervals are noted resting blood pressures 122/82 mmHg. The patient exercised according to regular Emile protocol for total duration of 10 minutes and 15 s econds. Patient completed 1 minute and 15 seconds to stage IV of the Emile protocol. The maximum heart rate attained was 171 bpm which was 89% of maximal predicted heart rate the maximum workload was 12.3 metabolic equivalents. At rest were no ST or T wave changes noted suggest ischemia peak exercise upsloping ST changes were noted with intermediate criteria for ischemia. No clinical angina was noted. The patient however did experience some back discomfort. The resting blood pressure was 122/82 with a peak blood pressure 170/66. Myocardial perfusion protocol. 12.8 mCi of technetium 99m sestamibi was injected at rest. Patient exercised for 10 minutes and 15 seconds at peak exercise 39.4 mCi of technetium 99m sestamibi was injected stress images were obtained stress and rest images were reconstructed and compared in the short axis vertical and horizontal long axis. Gated images was obtained Perfusion SPECT analysis: Review of the stress images demonstrate normal uptake of tracer noted in all areas of the myocardium the resting images similar demonstrate normal uptake of tracer noted in all areas of the myocardium. No reversibility is noted to suggest ischemia no previous infarct is noted. Gated SPECT analysis: The gated ejection fraction is noted to be 70%. Conclusion: Normal exercise myocardial perfusion stress test at a high workload. Preserved ejection fraction. The above is a low risk test.
--- NOTE | 2019-08-06 11:11 | PCM.DC ---
- Discharge Diagnoses Current Active Problems: Current Active and Chronic Problems Chest pain (Acute) Hypertension (Chronic) BMI 34.0-34.9,adult (Chronic) DM2 (diabetes mellitus, type 2) (Chronic) Sleep apnea (Chronic) Tobacco dependence (Chronic) Dyspnea on exertion (Acute) You will use the following diet at home:: Calorie/Carbohydrate Controlled (specify 1200, 1400, etc) Your food should be the consistency of: Regular Discharge Activity: Return to Normal Activity Allergies/Adverse Reactions: Allergies Iodinated Contrast Media Allergy (Severe, Verified 08/05/19 15:40) Hives Medications to take at Discharge Calcium Carbonate [Tums] 2,000 - 3,000 mg PO Q6H PRN PRN 08/05/19 Lisinopril 5 mg PO DAILY #60 tab 08/06/19 Metformin HCl 500 mg PO BID #120 tab 08/06/19 Pantoprazole Sodium [Protonix] 40 mg PO DAILY #60 tab 08/06/19 The following prescriptions were given: Lisinopril 5 mg PO DAILY #60 tab Transmission Status: Pending to [id number] Metformin HCl 500 mg PO BID #120 tab Transmission Status: Pending to [id number] Pantoprazole Sodium [Protonix] 40 mg PO DAILY #60 tab Transmission Status: Pending to [id number] Primary Care Physician: John Paul Rodriguez DO [Primary Care Provider] - Please follow up with your Primary Care Physician in: in 1-2 weeks Test Results: Test results from this visit will be discussed in further detail at your follow-up appointment, if applicable. Proposed Discharge Date: 08/06/19
--- NOTE | 2019-08-06 11:23 | PCM.DC.SUM ---
Discharge Date and Diagnosis Date of Admission: 08/05/19 Date of Discharge: 08/06/19 - Primary Discharge Diagnosis Acute Problems: Active Problems Chest pain (Acute) Dyspnea on exertion (Acute) - Secondary Discharge Diagnosis Chronic Problems: Chronic Problems Hypertension (Chronic) BMI 34.0-34.9,adult (Chronic) DM2 (diabetes mellitus, type 2) (Chronic) Sleep apnea (Chronic) Tobacco dependence (Chronic) Hospital Course and Treatment Imaging Results: 08/06/19 05:55 Nuclear Stress Test - Treadmil [NM] AM (NON MEDS) Summary of Care Provided: The patient is a 29 year old M presented with exertional chest pain 1. Chest pain ? Patient was admitted to monitored bed did rule out AR with serial cardiac enzymes subsequently underwent a nuclear stress test which was negative for stress-induced ischemia. A 2D echo was ordered in view of patient complaint of exertional dyspnea; unremarkable study 2. Essential hypertension ?Patient was previously on blood pressure medications for which she was taking of them to him. Pressure on admission was slightly elevated we will continue to monitor and start antihypertensives if patient blood pressure remains elevated ?Patient had fluctuations in his blood pressure prescription was written for lisinopril 5 mg on discharge 3. Diabetes mellitus type 2 ?Patient apparently noncompliant with meds currently on diet. Was placed on Accu-Cheks before meals and at bedtime with sliding scale coverage ordered hemoglobin A1c ?patient hemoglobin A1c was actually very good at 5.3. Prescription was written for metformin 500 mg p.o. daily 4. Obstructive sleep apnea ?Patient noncompliant with CPAP therapy 5. Obesity with BMI of 34.2 ?Weight loss advised 6. Tobacco dependence - Counseled on cessation, offered nicotine patch for tobacco cravings 7. DVT prophylaxis ?Low risk Objective: GENERAL: cooperative HEENT: Atraumatic; EYES; Anicteric, Normal Conjunctiva NECK; supple, normal thyroid, RESPIRATORY: Diminished to auscultation CARDIOVASCULAR: Regular S1 S2, GI: soft, normoactive bowel sounds, : No Renal angle tenderness; EXTREMITIES: No edema, no clubbing, MUSCULOSKELETAL: no muscle waisting NEURO: Awake; no lateralizing signs. SKIN: No Rash PSYCH; Flat affect - Physical Exam Vitals/I&O's: Vital Signs Temp Pulse Resp BP Pulse Ox 97.3 F L 81 16 127/69 H 99 08/06/19 08:10 08/06/19 08:10 08/06/19 08:10 08/06/19 08:10 08/06/19 08:10 Oxygen Delivery Method Room Air Weight: 100.7 kg Body Mass Index (BMI) 30.9 Intake and Output for Last 24 Hours 08/04/19 08/05/19 08/06/19 23:59 23:59 23:59 Intake Total 360 / 360 0 / 0 Balance 360 / 360 0 / 0 Laboratory Results 08/05/19 12:15: WBC 8.3, RBC 5.23, Hgb 14.7, Hct 44.7, MCV 85.5, MCH 28.1, MCHC 32.9, RDW Std Deviation 37.0, RDW Coeff of Colten 11.9, Plt Count 312, MPV 9.9, Immature Gran % (Auto) 0.500, Neut % (Auto) 56.5, Lymph % (Auto) 29.6, Dixon % (Auto) 10.0, Eos % (Auto) 2.6, Baso % (Auto) 0.8, Absolute Neuts (auto) 4.7, Absolute Lymphs (auto) 2.46, Nucleated RBC % 0 08/05/19 12:15: D-Dimer Quant (PE/DVT) 0.35 08/05/19 12:15: Sodium 140, Potassium 3.7, Chloride 105, Carbon Dioxide 31.0, Anion Gap 4 L, BUN 12, Creatinine 1.16, Estim Creat Clear Calc 100.08, Est GFR (MDRD) Af Amer 96, Est GFR (MDRD) Non-Af 79, BUN/Creatinine Ratio 10.3, Glucose 132 H, Calcium 9.7, Total Bilirubin 0.40, Direct Bilirubin 0.13, AST 15, ALT 37, Alkaline Phosphatase 124 H, Troponin I < 0.015, Total Protein 7.1, Albumin 3.8, Globulin 3.3, TSH 2.30 08/05/19 12:15: B-Natriuretic Peptide 3.1 08/05/19 16:20: Hemoglobin A1c 5.3 08/05/19 16:20: Troponin I < 0.015 08/05/19 16:34: POC Glucose 81 08/05/19 19:00: Troponin I < 0.015 08/05/19 21:11: POC Glucose 108 06/06/20 06:39: POC Glucose 106 Current Medications Acetaminophen (Tylenol) 650 mg PO Q6H PRN PRN PRN Reason: Pain Score 1-10/Temp > 100.7 F Al Hydroxide/Mg Hydroxide (Mylanta Ii) 30 ml PO Q6H PRN PRN PRN Reason: Gastric Burning Albuterol Sulfate (Ventolin Aerosols) 2.5 mg INHALATION Q2H PRN PRN PRN Reason: SOB/Wheezing Dextrose (D50w Syringe) 0 gm IV X1 PRN; Protocol PRN Reason: Hypoglycemia Glucagon () 1 mg IM .X1 PRN PRN Reason: Hypoglycemia Guaifenesin (Robitussin) 20 ml PO Q4H PRN PRN PRN Reason: COUGH Insulin Human Lispro (Humalog Kwikpen (Bkc)) 0 unit [facility]; Protocol Last Admin: 08/06/19 07:37 Dose: Not Given Documented by: Magnesium Hydroxide (Milk Of Magnesia) 30 ml PO DAILY PRN PRN PRN Reason: Constipation Nitroglycerin (Nitrostat) 0.4 mg SUBLINGUAL Q5M PRN PRN Reason: CHEST PAIN Ondansetron HCl (Zofran) 4 mg IV Q8H PRN PRN PRN Reason: NAUSEA/VOMITING Oxycodone HCl (Oxyir) 5 mg PO Q4H PRN PRN PRN Reason: Pain Score 4-5/10 Oxycodone HCl (Oxyir) 10 mg PO Q4H PRN PRN PRN Reason: Pain Score 6-10/10 Promethazine HCl (Phenergan) 25 mg IM Q6H PRN PRN PRN Reason: Breakthrough Nausea/Vomiting Sodium Chloride () 10 - 40 ml IV UD PRN PRN Reason: SALINE FLUSH Discharge Diet: 1800 Calorie Control Diet Discharge Activity: Return to Normal Activity Home Medications: Medications to take at Discharge Calcium Carbonate [Tums] 2,000 - 3,000 mg PO Q6H PRN PRN 08/05/19 Lisinopril 5 mg PO DAILY #60 tab 08/06/19 Metformin HCl 500 mg PO BID #120 tab 08/06/19 Pantoprazole Sodium [Protonix] 40 mg PO DAILY #60 tab 08/06/19 Following Prescrptions Were Given to Patient: Lisinopril 5 mg PO DAILY #60 tab Transmission Status: Received by [id number] Metformin HCl 500 mg PO BID #120 tab Transmission Status[id number] Pantoprazole Sodium [Protonix] 40 mg PO DAILY #60 tab Transmission Status: [id number] Primary Care Physician: John Paul Rodriguez DO [Primary Care Provider] - Please follow up with your Primary Care Physician in: in 1-2 weeks Disposition: Home Minutes spent on discharge:: 35 Patient Condition:: Good Medical Necessity - Tobacco Use Smoking Status: Heavy Smoker (>10/day) Tobacco Use: Cigarettes Meaningful Use Info Meaningful Use Diagnoses (Choose all that apply): None applicable OBSV E&M: 00406 Observation care discharge
[2019-08-06 11:26] LABS: Bedside Glucose 85 mg/dL (70-110)
--- NOTE | 2019-08-06 13:35 | NURSING ---
Discharged with work excuse. 08/05/2019-08/08/2019
== END 2019-08-06 11:19 | disposition home or self-care (01) ==
LOC: ED 12:54 → PCU 15:23
PROVIDERS: Admitting Provider Internal Medicine; Emergency Provider Emergency Medicine; PCP Student in an Organized Health Care Education/Training Program; Visit Provider Internal Medicine
DX: R07.89 Other chest pain (principal); R06.09 Other forms of dyspnea; R00.2 Palpitations; I10 Essential (primary) hypertension; K21.9 Gastro-esophageal reflux disease without esophagitis; E11.9 Type 2 diabetes mellitus without complications; F17.210 Nicotine dependence, cigarettes, uncomplicated; I07.1 Rheumatic tricuspid insufficiency; G47.33 Obstructive sleep apnea (adult) (pediatric); Z68.34 Body mass index [BMI] 34.0-34.9, adult; Z79.899 Other long term (current) drug therapy; E66.9 Obesity, unspecified; Z91.19 Patient's noncompliance with other medical treatment and regimen; Z91.14 Patient's other noncompliance with medication regimen
CPT/HCPCS: 36415; 71045; 78452; 80048; 80076; 82962; 83036; 83880; 84443; 84484; 85025; 85379; 93005; 93017; 93306; 99218; 99284; 99406; A9500; Q9957; A4216; G0378

== ENCOUNTER 2020-04-05 03:53 | Emergency (ER) | payer MEDICAID, SELFPAY ==
[2019-08-05 15:36] VITALS: BMI 30.9
[2020-04-05] VITALS (12 sets, daily range): BP systolic 108–143; BP diastolic 79–109; PULSE 72–84; RESP 16–24; TEMP 36.4–37; O2SAT 97–99; BMI 33.1
--- NOTE | 2020-04-05 03:54 | EKG12_ITS ---
Test Reason : STROKE Blood Pressure : / mmHG Vent. Rate : 079 BPM Atrial Rate : 079 BPM P-R Int : 210 ms QRS Dur : 094 ms QT Int : 366 ms P-R-T Axes : 030 039 013 degrees QTc Int : 419 ms Sinus rhythm with 1st degree A-V block Otherwise normal ECG Confirmed by VERA GRIFFITHS, JENNIFER ([id number]), desk editor SAM EPSTEIN ([id number]) on 04/06/2020 11:14:23 AM Referred By: VONDA Confirmed By:JENNIFER GAMEZ MD
--- NOTE | 2020-04-05 03:54 | CT_ITS ---
We are attempting to reach an attending provider to discuss findings. An addendum with communication details will be sent when the communication is complete. STUDY: CT HEAD STROKE PROTOCOL W/O CONTRAST INJECTION REASON FOR EXAM: Male, 29 years old. CVA RADIATION DOSAGE (If Supplied By Facility): CTDIvol = ( ) mGy, DLP = ( ) mGycm TECHNIQUE: Transaxial CT imaging of the brain was performed without administration of intravenous contrast material. Individualized dose optimization techniques were used for this CT. COMPARISON: June 01, 2016 CT head FINDINGS: Normal soft tissue structures. Normal calvarium. Normal size ventricles and extra-axial spaces for the patient''s age. Normal white matter tracts of the cerebral hemispheres. Normal basal ganglia and thalami. Normal brainstem. Normal cerebellum. There is no intracranial hemorrhage. There are no findings of an acute ischemic infarction. There is opacification of the right-sided maxillary sinus with a mucosal retention cyst. There is chronic appearing mucosal thickening of the left maxillary sinus. There is a sphenoid sinus mucosal retention cysts. ASPECT score: 1010 CT/STROKE Brain/Head without Cont IMPRESSION: No visualized acute hemorrhage infarct or edema. Stable head CT. Chronic appearing mucosal retention cyst in the maxillary sinuses and sphenoid sinus.. Electronically Signed: Adela Blanco MD at 4:11 EST Tel , Service support ,
--- NOTE | 2020-04-05 03:54 | RAD_ITS ---
STUDY: X-RAY CHEST REASON FOR EXAM: Male, 29 years old. Neuro deficit, acute, stroke suspected TECHNIQUE: Single AP portable view of the chest. COMPARISON: August 05, 2019 chest x-ray FINDINGS: The lungs are clear and expanded. There is no demonstrated pleural abnormality. There is borderline cardiomegaly. Normal mediastinum and leonardo. Normal visualized pulmonary arteries. Normal visualized aortic arch and descending thoracic aorta. Normal visualized thoracic spine. Normal visualized ribs, clavicles, and shoulders. There is no demonstrated abnormality of the visualized soft tissue structures of the upper abdomen. RAD/Chest 1 View IMPRESSION: Borderline cardiac enlargement no visible focal infiltrate. Electronically Signed: Adela Blanco MD at 4:47 EST Tel , Service support ,
--- NOTE | 2020-04-05 03:55 | ED.VIS.STROK ---
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 Woke him up. Current Severity: Moderate Maximum Severity: Severe Worsened by: Nothing Relieved by: Nothing in particular Associated Symptoms: Negative for: Headache, Nausea, Vomiting, Chest Pain Narrative: Patient is a type II diabetic who states he woke up with trouble speaking and left-sided weakness and numbness, he has had neurologic symptoms like this before when his blood sugar has dropped, but when asked if he checked his blood sugar when he woke up, he states no, no one checked it for me. EMS checked it and he was in the 120s. They called her prehospital stroke alert. They thought he had a facial droop on the right and was weak on the left, but the patient puts forth minimal effort and it is admittedly difficult to tell with regards to his face. He is slurring his speech and when asked if he feels like his tongue is swollen, he states maybe. He denies any recent illness. No recent injury or head trauma. Not an IV drug user. Patient provides additional history, saying that when he initially woke up, he could not get out of bed or move, his whole body was stiffening up, and he describes convulsions that he was conscious for. He is not sure how long it went on for, but it was minutes. He states he has had this happen before, and thinks he has passed out with it in the past. No known history of seizures. Additionally, the patient states that when he woke up this morning he started having left flank pain that has been colicky ever since without vomiting. No history of kidney stones that he knows of. Pain is still there now but mild. <Eduardo Schrader - Last Filed: 04/05/20 05:15> <Trent Quinteros - Last Filed: 04/05/20 08:02> Chief Complaint: Neuro S/Sx - Past Medical History (1) DM2 (diabetes mellitus, type 2) Status: Chronic (2) Hypertension Status: Chronic (3) Sleep apnea Status: Chronic <Eduardo Schrader - Last Filed: 04/05/20 05:15> Past Medical History Surgical History: no surgical history Smoking Status: Heavy Smoker (>10/day) - Family History Maternal Family History: Reports: Heart Disease Paternal Family History: Reports: Heart Disease <Eduardo Schrader - Last Filed: 04/05/20 05:15> <Trent Quinteros - Last Filed: 04/05/20 08:02> - Allergies and Home Meds Allergies/Adverse Reactions: Allergies Iodinated Contrast Media Allergy (Severe, Verified 04/05/20 04:38) Anaphylaxis Primary Care Physician: John Paul Rodriguez DO [Primary Care Provider] - Review of Systems General: Reports: Malaise. Denies: Chills, Fever, Sweats Eyes: Denies: Visual changes - bilaterally, Diplopia ENT: Reports: - - See HPI. Denies: Rhinorrhea, Sore throat Cardiovascular: Denies: Chest pain, Palpitations Respiratory: Denies: Dyspnea, Cough, Dyspnea on exertion Gastrointestinal: Denies: Abdominal pain, Nausea, Vomiting, Diarrhea, Melena, Hematochezia Genitourinary: Denies: Dysuria, Hematuria, Frequency Musculoskeletal: Denies: Back pain, Extremity Pain Skin: Denies: Rash, Wounds Neurological: Reports: Weakness, Numbness, - - Trouble speaking. Denies: Headache <MacrinaEduardo - Last Filed: 04/05/20 05:15> STROKE Inital Vital Signs reviewed: Yes - NIHSS Initial 1a Level of Consciousness: 0 1b LOC Questions (Score 2 if aphasic/stupor): 0 1c LOC Commands (Only score 1st attempt): 0 2 Best Gaze (If aphasic, use reflexive mvmts.): 0 3 Visual: 0 4 Facial Palsy: 0 5 Motor Arm Right (UN = amputation/fusion): 0 5 Motor Arm Left: 1 6 Motor Leg Right: 0 6 Motor Leg Left: 0 7 Limb ataxia (Only + if out of proportion): 0 8 Sensory (Aphasia/stupor=0 or 1, coma=2): 0 9 Best Language: 0 10 Dysarthria (mute, coma=2, intubated=UN): 1 11 Extinction and Inattention (only scored if +): 0 Total Score: 2 General: Well nourished, Well developed, Obese, - - Keenly alert no distress Head: Normocephalic, Atraumatic Eyes: Perrl, EOMI ENT: Moist mucous membranes, No rhinorrhea, - - Posterior oropharynx not visible, patient provides poor effort and sticking his tongue out, but it does not appear edematous Neck: Supple, Nontender, No lymphadenopathy Cardiovascular: Regular rate, Regular rhythm, No murmurs Respiratory: No distress, CTA bilaterally, Chest nontender, - - No stridor Abdomen: Soft, Nondistended, Normal bowel sounds, Tender - Mild, lower abdomen and left upper quadrant Back: Nontender, Normal Inspection, CVA tenderness - Mild left only Extremities: Nontender, No edema. Negative for: Calf Tenderness Skin: Normal color, No rash, No Trauma Neurological: Alert, Oriented x3 - Including month and age Psychological: Normal affect, Normal Mood <Eduadro Schrader - Last Filed: 04/05/20 05:15> Vital Signs/Narrative: Vital Signs Temp Pulse Resp BP Pulse Ox 04/05/20 07:10 75 16 110/88 H 98 04/05/20 06:53 97.6 F L 72 20 H 125/95 H 97 04/05/20 06:40 72 18 131/109 H 99 04/05/20 06:06 72 04/05/20 06:02 72 18 108/79 99 04/05/20 05:40 75 16 128/92 H 98 04/05/20 05:19 134/99 H 04/05/20 05:16 77 20 H 134/99 H 97 04/05/20 04:41 98.6 F 04/05/20 04:30 78 24 H 130/101 H 97 04/05/20 04:04 84 16 143/101 H 98 <Trent Quinteros - Last Filed: 04/05/20 08:02> Diagnostic/Tx/Re-eval Impressions Brain CT 04/05/20 03:54 IMPRESSION: No visualized acute hemorrhage infarct or edema. Stable head CT. Chronic appearing mucosal retention cyst in the maxillary sinuses and sphenoid sinus.. Electronically Signed: Adela Blanco MD at 4:11 EST Tel , Service support , ADDENDUM: 04/05/20 0421 IMPRESSION: No visualized acute hemorrhage infarct or edema. Stable head CT. Chronic appearing mucosal retention cyst in the maxillary sinuses and sphenoid sinus.. N.B. : The above information has been verbally conveyed by Adela Blanco MD to Eduardo Schrader MD, on 04/05/2020 04:14:11 (ET). Electronically Signed: Adela Blanco MD at 4:11 EST Tel , Service support , Chest X-Ray 04/05/20 03:54 IMPRESSION: Borderline cardiac enlargement no visible focal infiltrate. Electronically Signed: Adela Blanco MD at 4:47 EST Tel , Service support , Abdomen/Pelvis CT 04/05/20 04:19 IMPRESSION: Constipation. No evidence of appendicitis. Minimal hiatal hernia. Bifid T12 vertebral body with kyphosis. No visualized hydronephrosis or renal stone. Electronically Signed: Adela Blanco MD at 5:20 EST Tel , Service support , 04/05/20 03:54 Chest 1 View [RAD] Stat STROKE Brain/Head without Cont [CT] Stat 04/05/20 04:19 Abdomen/Pelvis without Cont [CT] Stat Laboratory Results 04/05/20 04/05/20 04/05/20 03:45 03:45 03:45 WBC 10.0 RBC 5.46 Hgb 15.5 Hct 45.9 MCV 84.1 MCH 28.4 MCHC 33.8 RDW Std Deviation 35.5 RDW Coeff of Colten 11.9 Plt Count 325 MPV 10.2 Immature Gran % (Auto) 0.400 Neut % (Auto) 45.3 L Lymph % (Auto) 40.8 George % (Auto) 9.0 Eos % (Auto) 3.4 Baso % (Auto) 1.1 H Absolute Neuts (auto) 4.5 Absolute Lymphs (auto) 4.08 Nucleated RBC % 0 PT 11.6 L INR 0.9 APTT 23.2 L Sodium 138 Potassium 3.5 Chloride 104 Carbon Dioxide 28.0 Anion Gap 6 BUN 16 Creatinine 1.34 H Estim Creat Clear Calc 86.63 Est GFR (MDRD) Af Amer 81 Est GFR (MDRD) Non-Af 67 BUN/Creatinine Ratio 11.9 Glucose 133 H Lactic Acid Calcium 9.3 Troponin I < 0.015 Urine Color Urine Clarity Urine pH Ur Specific Norris Urine Protein Urine Glucose (UA) Urine Ketones Urine Occult Blood Urine Nitrite Urine Bilirubin Urine Urobilinogen Ur Leukocyte Esterase Urine RBC Urine WBC Ur Squamous Epith Cells Urine Bacteria Urine Mucus 04/05/20 04/05/20 04:24 05:32 WBC RBC Hgb Hct MCV MCH MCHC RDW Std Deviation RDW Coeff of Colten Plt Count MPV Immature Gran % (Auto) Neut % (Auto) Lymph % (Auto) George % (Auto) Eos % (Auto) Baso % (Auto) Absolute Neuts (auto) Absolute Lymphs (auto) Nucleated RBC % PT INR APTT Sodium Potassium Chloride Carbon Dioxide Anion Gap BUN Creatinine Estim Creat Clear Calc Est GFR (MDRD) Af Amer Est GFR (MDRD) Non-Af BUN/Creatinine Ratio Glucose Lactic Acid 1.3 Calcium Troponin I Urine Color Yellow Urine Clarity Clear Urine pH 6.0 Ur Specific Norris 1.025 Urine Protein Negative Urine Glucose (UA) Normal Urine Ketones Negative Urine Occult Blood 50 H Urine Nitrite Negative Urine Bilirubin Negative Urine Urobilinogen Normal Ur Leukocyte Esterase Negative Urine RBC 0-5 SEEN Urine WBC 0 SEEN Ur Squamous Epith Cells 0 SEEN Urine Bacteria 0 SEEN Urine Mucus 0 SEEN - Rhythm Strip Rhythm Strip: Sinus Rhythm Rate: 80 Ectopy: None - EKG Initial EKG Interpretation: Sinus Rhythm, No Acute Injury Pattern, AV Block - 1st deg Prior: Unchanged - Medical Decision Making Stroke Team Activated: Yes Reviewed Inclusion/Exclusion criteria: Yes Was Patient considered for Endovascular Intervention?: No - Patient refused the recommended CT angiography IV Alteplase (t-PA) Administered: No - due to timing Patient went from EMS bay direct to CT. Patient has significant slurred speech during most of the exam, however during parts of the neurologic evaluation the speech changes and is normal, then he starts slurring it again. He barely has drift in his left upper extremity, by simply pronating his hand. His arm really does not drop. Radiologist provided me the negative head CT report at 0413. [facility] teleneurology agrees that IV TPA is not indicated due to him being outside the timing window, and although his NIH is very low and the patient has no cortical signs, he recommends CT angiography of the head and neck and admission for MRI if negative. The patient has an allergy to IV contrast dye that involves urticaria and tongue swelling. I recommended pretreating him with Solu-Medrol and Benadryl for an hour prior to the skin to prevent this reaction but he refuses all of this. He did allow CT abdomen/pelvis which was done without contrast given his left flank pain, it shows no stones or hydronephrosis, and is consistent with constipation, which we discussed. During this conversation, his neurologic symptoms are completely resolved and he is speaking normally. I discussed the differential diagnosis including the possibility of seizure activity, he responds to this by saying that he has a history of that in the family. We also discussed the possibility of TIA which would put him at a higher risk of having a debilitating stroke in the next 48 hours, hence the neurologist's recommendation to admit him to the hospital for further testing including MRI, and possibly EEG. Patient was considering not staying in the hospital but eventually decided it would be best to stay, with which I agree. At this time, his NIH is 0. <Eduardo Schrader - Last Filed: 04/05/20 05:15> [place]-patient was turned over to me. He was supposed to be going upstairs he had seen the hospitalist but now he changed his mind and does not want to stay. Some of the reasons he gives me other than work are his ability to pay a. I try to talk to him and his mom who is at bedside about staying in the hospital, the risk of a stroke, seizure, potential , permanent disability, persistent vegetative state and other horrible outcomes as a result of missing a stroke or seizure. He understands these he tells me that even no these could happen he does not wish to stay and he will call his doctor. He does tell me that he will follow-up with the neurologist if I refer him. I did tell him very specifically that he cannot drive because of the worry about a seizure until cleared by neurology. He understands this, in fact his mother repeated that back to him while I was in the room. I did tell him that if he changes his mind or any new symptoms he needs to return right away. I would like him to be admitted however keeping him against his will would be an assault, he is lucid and coherent, even though he is making a bad decision he is entitled to it. <Trent Quinteros - Last Filed: 04/05/20 08:02> ED Disposition <Eduardo Schrader - Last Filed: 04/05/20 05:15> <Trent Quinteros - Last Filed: 04/05/20 08:02> - Plan for ED Patient: Disposition: Against Medical Advice Diagnosis: Acute left hemiparesis, Dysarthria Instructions: ED Seizure New Onset Unknown ..., ED TIA: Transient Ischemic Attack Referrals: John Paul Rodriguez DO [Primary Care Provider] - 2 Days Benedict Brandon MD [NON-STAFF] - 2 Days Additional Instructions: You have the potential of having either a stroke or a seizure. You signed out AGAINST MEDICAL ADVICE. However you cannot drive according to the [facility] until cleared by neurology. You were referred to neurology. If you change your mind about returning to the ED or if there are new symptoms please come back right away via ambulance. Make sure you take a baby aspirin daily.
--- NOTE | 2020-04-05 03:56 | ED.RN ---
osu called at this time
[2020-04-05 04:02] LABS: Absolute Lymphocyte Count 4.08 X10^3/uL (0.83-4.51); Absolute Neutrophil Count 4.5 X10^3/uL (2.0-7.7); Basophil# 0.11 X10^3/uL; Basophil% 1.1 % (0-1); Eosinophil# 0.34 X10^3/uL; Eosinophils% 3.4 % (0-5); Hematocrit 45.9 % (40-54); Hemoglobin 15.5 g/dL (13.0-16.5); Lymphocyte # 4.08 X10^3/ul (4.0); Lymphocyte % 40.8 % (19-41); Mean Corp Hgb Conc 33.8 g/dL (32-36); Mean Corpuscular Hgb 28.4 pg (27.0-32.0); Mean Corpuscular Volume 84.1 fL (80-94); Mean Platelet Vol. 10.2 fl (6.2-12.0); NRBC Flagged by Analyzer 0 % (0-5); Neutrophil # 4.52 X10^3/uL (2.7-7.7); Neutrophil % 45.3 % (47-70); Platelet Count 325 K/mm3 (150-450); RBC Distribution Width CV 11.9 % (11.6-14.6); RBC Distribution Width SD 35.5 fl (35.1-43.9); Red Blood Count 5.46 M/mm3 (4.6-6.2)
--- NOTE | 2020-04-05 04:03 | ED.RN ---
osu beaming in to speak with patient at this time
[2020-04-05 04:09] LABS: International Normalized Ratio 0.9; Prothrombin Time (Protime)PT. 11.6 SECONDS (11.7-14.9)
[2020-04-05 04:10] LABS: Partial Thromboplast Time 23.2 Seconds (24.1-36.2)
--- NOTE | 2020-04-05 04:16 | ED.RN ---
patient during the exam speech would not have any slurred speech and speak normal and then asked the questions during exam the would develop slurred speech,
--- NOTE | 2020-04-05 04:19 | CT_ITS ---
STUDY: CT ABDOMEN AND PELVIS WITHOUT CONTRAST REASON FOR EXAM: Male, 29 years old. LT FLANK Pain, lt SIDED WEAKNESS -- HX:CROHN''S,HTN,DIABETES RADIATION DOSAGE (If Supplied By Facility): CTDIvol = ( 16.18 ) mGy, DLP = ( 893.12 ) mGycm TECHNIQUE: Transaxial images were obtained from the dome of the diaphragm to the symphysis pubis without oral contrast, and without intravenous contrast. Sagittal and coronal images were reconstructed. Individualized dose optimization techniques were used for this CT. COMPARISON: None. FINDINGS: The visualized lung bases are unremarkable. The visualized portions of the heart are within normal limits. Normal liver. The gallbladder is contracted. Normal spleen. Normal pancreas. Normal bilateral adrenal glands. Normal right kidney. Normal left kidney. There is a small hiatal hernia. Normal small intestine. There is mild to moderate stool in the colon. The appendix is visualized and appears normal. Normal abdominal aorta. Normal inferior vena cava. Normal retroperitoneum. Normal urinary bladder. Normal visualized prostate gland. There is a small umbilical hernia containing fat. There is a bifid T12 vertebral body with kyphosis. CT/Abdomen/Pelvis without Cont IMPRESSION: Constipation. No evidence of appendicitis. Minimal hiatal hernia. Bifid T12 vertebral body with kyphosis. No visualized hydronephrosis or renal stone. Electronically Signed: Adela Blanco MD at 5:20 EST Tel , Service support ,
--- NOTE | 2020-04-05 04:21 | ED.RN ---
patients blood was drawn by ems prior to patient arrival
[2020-04-05 04:22] LABS: Anion Gap 6 (5-15); BUN 16 mg/dL (7-18); BUN/Creat Ratio 11.9 RATIO (10-20); Chloride 104 mmol/L (98-107); Creatinine, Serum 1.34 mg/dL (0.70-1.30); EST Glomerular Filtration Rate 67 mL/min (>60); Est Glom Filt Rate - Afr Amer 81 mL/min (>60); Estimated Creatinine Clearance 86.63 ml/min; Glucose 133 mg/dL (74-106); Potassium 3.5 mmol/L (3.5-5.1); Sodium Level 138 mmol/L (136-145)
--- NOTE | 2020-04-05 04:38 | ED.RN ---
Patient refusing CTA head and neck at this time patient states he is allergic ot the dye and can not swallow after having IV Dye
[2020-04-05 04:58] LABS: Lactic Acid 1.3 mmol/L (0.4-1.9)
[2020-04-05 05:08] LABS: Calcium,Total 9.3 mg/dL (8.5-10.1)
[2020-04-05 05:37] LABS: Color, Urine Yellow (Yellow); Glucose, Dipstick Normal (Normal); Ketone-Dipstick Negative (Negative); Leukocyte Esterase-Dipstick Negative /ul (Negative); Nitrite-Dipstick Negative (Negative); Occult Blood-Urine 50 /ul (Negative); Protein-Dipstick Negative (Negative); Specific Gravity, Urine 1.025 (1.002-1.030); Urine Bilirubin Dipstick Negative (Negative); Urine Clarity Clear (Clear); Urine Urobilinogen Normal (Normal)
[2020-04-05 05:39] LABS: Bacteria 0 SEEN /hpf (None Seen); Mucous, Urine 0 SEEN /hpf (<or=2+); Squamous Epithelial Cells - UA 0 SEEN /hpf (0-5); White Blood Cells 0 SEEN /hpf (0-5)
[2020-04-05 05:50] LABS: Red Blood Cells-Urine 0-5 SEEN /hpf (0-5)
--- NOTE | 2020-04-05 07:00 | NURSING ---
DR ENRIQUEZ FOR DR MORALES
--- NOTE | 2020-04-05 07:12 | NURSING ---
Dr. Jovel in room to evaluate pt
--- NOTE | 2020-04-05 07:15 | NURSING ---
PCU OBS JOPPERI LEFT HEMIPARESIS/NUMBNESS, DYSARTHRIA
--- NOTE | 2020-04-05 07:52 | CON.PCM_ITS ---
Reason for Consult Date of Consultation: 04/05/20 Reason for Consultation: Admission for left sided weakness. History of Present Illness: The patient is a 29 year old M presents waking feeling like he has just been beaten up. Also had left-sided weakness and slurred speech. Patient is a type II diabetic and did not check his blood sugar with these events as he has had similar events with his blood sugars being low. The patient was checked and it was apparently around 120. Patient try to go to the bathroom but was just very weak overall unable to get off the toilet. EMS was called and patient was brought to the hospital. Patient was evaluated by the emergency room physician where the patient had objective neurologic findings with slurred speech and left-sided weakness. Only symptoms did subsequently resolved. Patient had a head CT that showed no acute process. Patient was evaluated by [facility] teleneurology who recommended CT angiogram. Patient declined that. The emergency room physician was concerned about the possibility of stroke, TIA versus seizure and advised admission. Patient reluctantly agreed and then I went and saw the patient. First and patient asked as getting him out of the hospital and getting these test scheduled. Informed patient that we would not build to do that and the primary purpose of admitting him is to expedite test including MRI and EEG and a reevaluation by neurology after this tests are completed. Timing which all that could be completed would be within today or tomorrow. Patient stated that he has too much shit to do, including work but also he has a court date today. I strongly urged patient to stay so that these test to be expedited but if he were to leave he would be leaving AGAINST MEDICAL ADVICE and that he would need to follow-up with his primary care provider in regards to getting these tests done but I told him that it would not be so easy as it would require insurance authorization the time and his test would likely be the minimal weeks out. Gave him time to think about it further in the later came to the conclusion that he wanted to leave AGAINST MEDICAL ADVICE. I did tell him because of the concern for seizure that he could not drive until that is ruled out. 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 [] Past Medical History Past Medical History (Chronic Problems): Chronic Problems Hypertension (Chronic) BMI 34.0-34.9,adult (Chronic) DM2 (diabetes mellitus, type 2) (Chronic) Sleep apnea (Chronic) Tobacco dependence (Chronic) Medical History: Medical History (Last Updated 04/05/20 @ 07:[address] Vikash Jovel, DO) Crohn's colitis K50.10 DM2 (diabetes mellitus, type 2) E11.9 SOFIA (obstructive sleep apnea) G47.33 HTN (hypertension) I10 Allergies Iodinated Contrast Media Allergy (Severe, Verified 04/05/20 04:38) Anaphylaxis Home Medications: Ambulatory Orders Medication Instructions Recorded Lisinopril 5 mg PO DAILY #60 tab 08/06/19 Pantoprazole Sodium [Protonix] 40 mg PO DAILY #60 tab 08/06/19 Cholecalciferol (Vitamin D3) 1 tab PO DAILY 04/05/20 [Vitamin D3] Ergocalciferol (Vitamin D2) 50,000 unit PO DAILY 04/05/20 [Vitamin D2] Surgical History: no surgical history Smoking Status: Current every day smoker Tobacco Use: Cigarettes Alcohol: None Drugs: None - *Family History Maternal History Items: Heart Disease Paternal History Items: Heart Disease Review of Systems Constitutional: Reports: Weakness. Denies: Anorexia, Chills, Fever, Night Sweats Eyes: Denies: Blurred vision, Double vision HEENT: Denies: Head Aches, Sinus Congestion, Sinus Drainage Cardiovascular: Denies: Chest Pain, Palpitations Respiratory: Denies: Cough, Shortness of breath at rest, Sputum production Gastrointestinal: Denies: Abdominal Pain, Nausea, Vomiting Genitourinary: Denies: Dysuria Musculoskeletal: Denies: Joint Pain, Joint Tenderness Skin: Denies: Rash, Wounds Neurological: Reports: Balance problems, Focal weakness, Incoordination, Numbness, Tingling. Denies: Headaches, Seizures Psychiatric: Denies: Anxiety, Depression Hematologic/ Lymphatic: Denies: Easy Bruising, Easy Bleeding Patient Problems: Active and Suspected Problems Acute left hemiparesis (Acute) Dysarthria (Acute) - Physical Exam Vitals/I&O's: Vital Signs Temp Pulse Resp BP Pulse Ox 36.4 C L 75 16 110/88 H 98 04/05/20 06:53 04/05/20 07:10 04/05/20 07:10 04/05/20 07:10 04/05/20 07:10 Oxygen Delivery Method Room Air Weight: 107.9 kg Body Mass Index (BMI) 33.1 Finger Stick Blood Glucose 123 Intake and Output for Last 24 Hours 04/03/20 04/04/20 04/05/20 23:59 23:59 23:59 Intake Total 500 / 500 Balance 500 / 500 General: Alert, No apparent distress, Well developed, Well nourished HEENT: Atraumatic, PERRLA, EOMI, Normocephalic Oral: Moist Mucosa, No Gingival or Mucosal Lesions/ Ulcerations Neck: No Nodes, Thyroid Normal Size and Texture Lungs: Clear to auscultation, Normal air movement, No rhonchi, No wheeze, No rales Cardiovascular: Regular rate, Regular Rhythm, Normal S1, Normal S2, No murmurs Abdomen: Bowel Sounds Present, Soft, Non Tender, Non-Distended, No Hepato- splenomegaly, Passing Flatus Extremities: No edema, No Calf Tenderness Skin: No rashes, No breakdown Neurological: Cranial nerves II-XII grossly intact, Motor Exam 5/5 strength throughout, Coordination normal Psych/Mental Status: Normal Affect, Appropriate Laboratory Results 04/05/20 03:45: WBC 10.0, RBC 5.46, Hgb 15.5, Hct 45.9, MCV 84.1, MCH 28.4, MCHC 33.8, RDW Std Deviation 35.5, RDW Coeff of Colten 11.9, Plt Count 325, MPV 10.2, Immature Gran % (Auto) 0.400, Neut % (Auto) 45.3 L, Lymph % (Auto) 40.8, [place] % (Auto) 9.0, Eos % (Auto) 3.4, Baso % (Auto) 1.1 H, Absolute Neuts (auto) 4.5, Absolute Lymphs (auto) 4.08, Nucleated RBC % 0 04/05/20 03:45: PT 11.6 L, INR 0.9, APTT 23.2 L 04/05/20 03:45: Sodium 138, Potassium 3.5, Chloride 104, Carbon Dioxide 28.0, Anion Gap 6, BUN 16, Creatinine 1.34 H, Estim Creat Clear Calc 86.63, Est GFR (MDRD) Af Amer 81, Est GFR (MDRD) Non-Af 67, BUN/Creatinine Ratio 11.9, Glucose 133 H, Calcium 9.3, Troponin I < 0.015 04/05/20 04:24: Lactic Acid 1.3 04/05/20 05:32: Urine Color Yellow, Urine Clarity Clear, Urine pH 6.0, Ur Specific [place] 1.025, Urine Protein Negative, Urine Glucose (UA) Normal, Urine Ketones Negative, Urine Occult Blood 50 H, Urine Nitrite Negative, Urine Bilirubin Negative, Urine Urobilinogen Normal, Ur Leukocyte Esterase Negative, Urine RBC 0-5 SEEN, Urine WBC 0 SEEN, Ur Squamous Epith Cells 0 SEEN, Urine Bacteria 0 SEEN, Urine Mucus 0 SEEN Current Medications Sodium Chloride () 500 mls @ 999 mls/hr IV .Q31M ONE Last Infusion: 04/05/20 06:13 Dose: Infused Documented by: Labetalol HCl (Labetalol (Prefilled) 20 Mg/4 Ml) 20 mg IV X1 PRN PRN Reason: BLOOD PRESSURE Assessment/Plan All Active Problems Chest pain (Acute) Dyspnea on exertion (Acute) Acute left hemiparesis (Acute) Dysarthria (Acute) 1. Left-sided weakness: Concern is for this being a stroke versus TIA versus seizure with Nick's paralysis. Symptoms have greatly resolved. Encourage patient to stay to get a work-up occluding MRI and EEG. I told him I am very concerned the patient did have a seizure and he does have risk factors for seizures as he endorses sleep deprivation. Patient states that he sleeps roughly 2 to 3 hours per night. I encouraged patient to stay so that these test could be expedited. I told him that if an EEG was negative all it tells us is that he was not having a seizure at that time. Did encourage a better sleep hygiene. I did tell patient that he cannot drive because of the concern for seizure. Patient did not exquisitely said that he would comply with that, however. I did explain the risks of him having seizure while he was driving and someone whom I believe is his mother was at bedside when I was explained this to him. Patient elected to leave AGAINST MEDICAL ADVICE unfortunately. Patient will need to facilitate further testing through his primary care provider. I co ncerned that he is not going to do so. 2. Crohn's disease: Patient was talked about how he has diarrhea and that never told what the cause was and inquired about dietary issues that he has tried and then off and it stated that he has been tested positive for Crohn's disease with biopsies and was to have follow-up with Dr. Alvarez as outpatient but had to be rescheduled due to all the Covid shit. Recommend patient follow-up Dr. Alvarez as patient is still having diarrhea and see what modalities of treatment could be helpful. Compliance, unfortunately, would likely be an issue. 3. Obstructive sleep apnea: Did not given the fact that the patient has sleep apnea and whether or not he uses a CPAP. But if he is not using a CPAP that would certainly make his sleep deprivation worse. 4. Diabetes mellitus type 2: Patient not on any medications. Blood sugar 133 here. Follow-up primary care doctor for further recommendations. Office Visits / Consults: [id number] OP Consult L5
== END 2020-04-05 07:58 | disposition left against medical advice (07) ==
PROVIDERS: Emergency Provider Emergency Medicine; PCP Student in an Organized Health Care Education/Training Program
DX: G81.94 Hemiplegia, unspecified affecting left nondominant side (principal); R47.1 Dysarthria and anarthria; R29.702 NIHSS score 2; I44.0 Atrioventricular block, first degree; Z53.21 Procedure and treatment not carried out due to patient leaving prior to being seen by health care provider; E66.9 Obesity, unspecified; I10 Essential (primary) hypertension; Z68.33 Body mass index [BMI] 33.0-33.9, adult; E11.9 Type 2 diabetes mellitus without complications; K50.10 Crohn's disease of large intestine without complications; G47.33 Obstructive sleep apnea (adult) (pediatric); Z79.899 Other long term (current) drug therapy; F17.210 Nicotine dependence, cigarettes, uncomplicated
CPT/HCPCS: 70450; 71045; 74176; 80048; 81001; 83605; 84484; 85025; 85610; 85730; 93005; 96360; 96361; 99285; J7040; A4216

== ENCOUNTER 2021-02-15 17:52 | Emergency (ER) | payer MEDICAID, SELFPAY ==
[2021-02-15 17:53] VITALS: BP 134/86; PULSE 95; RESP 18; TEMP 36.6; O2SAT 97; BMI 34.8
--- NOTE | 2021-02-15 18:56 | RAD_ITS ---
STUDY: X-RAY - UNILATERAL RIBS ( LEFT ) WITH CHEST REASON FOR EXAM: Male, 30 years old. injury TECHNIQUE - RIBS: 4 view(s) of the ribs. TECHNIQUE - CHEST: COMPARISON: None. FINDINGS - RIBS: Normal visualized ribs without a demonstrated fracture. FINDINGS - CHEST: PA The lungs are clear and expanded. There is no demonstrated pleural abnormality. Normal size heart. Normal mediastinum and leonardo. Normal visualized pulmonary arteries. Normal visualized aortic arch and descending thoracic aorta. Normal visualized thoracic spine. Normal visualized ribs, clavicles, and shoulders. There is no demonstrated abnormality of the visualized soft tissue structures of the upper abdomen. RAD/Ribs Uni Min 3V w/PA Chest IMPRESSION: RIBS: Normal x-ray examination of the ribs. CHEST: Normal x-ray examination of the chest. Electronically Signed: Patricio Cassidy MD at 19:38 EST , Service support ,
--- NOTE | 2021-02-15 18:59 | EX.ED.DYSGE1 ---
HPI History of Present Illness Chief Complaint: Fall Informant: patient Onset/Context/Timing Onset: Weeks Current Severity: Moderate Maximum Severity: Moderate Narrative Narrative: Patient presents secondary to left-sided chest and back pain after a fall. He slipped on transmission fluid in his shop 1 week ago landing on his left side. He initially had pain to his chest and left arm. He has been using Tylenol and ibuprofen. He states initially this was helping quite a bit but lately does not seem to be helping the muscular pain in his chest and back. He is right-hand dominant. No paresthesias or weakness in the left arm. Denies striking his head. [facility] Medical History Crohn's colitis DM2 (diabetes mellitus, type 2) HTN (hypertension) SOFIA (obstructive sleep apnea) Home Medications cyclobenzaprine 10 mg PO BID PRN #10 tab 02/15/21 [Rx Last Taken Unknown] hydrocodone-acetaminophen 1 tab PO Q6H PRN 3 Days #10 tab 02/15/21 [Rx Last Taken Unknown] Allergy/AdvReac Type Severity Reaction Status Date / Time Iodinated Contrast Media Allergy Severe Anaphylaxis Verified 02/15/21 17:54 Social History Smoking Status: Current every day smoker tobacco type: cigarettes ROS ROS ED Constitutional Constitutional ED: Denies chills or fever(s) Eyes Eyes: Denies change in vision ENT ENT ED: Denies sore throat Cardiovascular Cardiovascular: Reports chest pain Respiratory/Chest Respiratory/Chest: Denies cough or dyspnea Gastrointestinal Gastrointestinal: Denies abdominal pain, diarrhea, nausea or vomiting Musculoskeletal Musculoskeletal: Reports back pain Integumentary Denies rash Neurologic Neurologic: Denies headache(s), paresthesias or weakness Allergic/Immunologic Allergic/Immunologic ED: Denies urticaria EXAM Physical Exam Const Vital Signs: 02/15/21 17:53 02/15/21 18:46 Temperature 97.8 F Temperature Source Temporal Pulse Rate 95 Respiratory Rate 18 Respiratory Effort Normal Blood Pressure 134/86 H Blood Pressure Mean 102 Pulse Ox 97 Oxygen Delivery Method Room Air Positive well nourished and well developed General Appearance ED: well developed HEENT Reports moist mucous membranes Eyes PERRL and EOMs intact bilaterally Neck supple Neck Narrative: No C-spine tenderness. Chest Wall Chest Narrative: Tenderness palpation over the left anterior chest wall. No crepitus. Resp normal respiratory effort and clear to auscultation bilaterally Cardio regular rate and regular rhythm GI non-tender Palpation: soft Back/Spine Back/Spine Narrative: Reproducible tenderness in the left thoracic paraspinal muscles and trapezius muscles. Extremity normal to inspection Neuro oriented x3 Sensorium / Orientation: alert Psych mental status grossly normal Skin no rashes or lesions noted MDM MDM MDM Narrative Medical decision making narrative: Rib series with chest x-ray obtained. Patient given a tab of [place] and Flexeril for pain and muscle spasm. Radiography Diagnostic Testing: Clinical Impression(s) from Imaging Studies Ribs w/Chest X-Ray 02/15/21 18:56 IMPRESSION: RIBS: Normal x-ray examination of the ribs. CHEST: Normal x-ray examination of the chest. Electronically Signed: Patricio Cassidy MD at 19:38 EST , Service support , Treatment and Re-Evaluation Comments:: X-ray per my interpretation shows no acute abnormalities. Radiologist interpretation reviewed. Test results discussed with patient and at bedside. Prescriptions for [place] and Flexeril be sent to the pharmacy for him. Discharge Plan Triage Chief Complaint: Fall ED Provider: Misty Hobbs Dx/Rx/DC Orders Clinical Impression: Chest wall muscle strain Instructions: ED Back Sprain/Strain, ED Muscle Spasm Prescriptions: New hydrocodone-acetaminophen 5-325 mg tablet 1 tab PO Q6H PRN (Reason: pain) 3 Days Qty: 10 RF: 0 cyclobenzaprine 10 mg tablet 10 mg PO BID PRN (Reason: muscle spasm) Qty: 10 RF: 0 Primary Care Provider: John Paul Rodriguez Referrals: John Paul Rodriguez, [Primary Care Provider] - 10-14 Days if not better Disposition Disposition: Home, Self Care
[2021-02-15] MEDS: cycloBENZAPRine HCl 10 MG Tablet PO (19:06)
[2021-02-15] MEDS: HYDROcodone Bitartrate/Apap 5/325 Tablet PO (19:06)
[2021-02-15 19:57] VITALS: BP 130/75; PULSE 85; RESP 15; O2SAT 98
== END 2021-02-15 19:59 | disposition home or self-care (01) ==
PROVIDERS: Emergency Provider Emergency Medicine; PCP Student in an Organized Health Care Education/Training Program
DX: S29.011A Strain of muscle and tendon of front wall of thorax, initial encounter (principal); W01.0XXA Fall on same level from slipping, tripping and stumbling without subsequent striking against object, initial encounter; Y93.9 Activity, unspecified; Y92.513 Shop (commercial) as the place of occurrence of the external cause; E11.9 Type 2 diabetes mellitus without complications; G47.33 Obstructive sleep apnea (adult) (pediatric); K50.10 Crohn's disease of large intestine without complications; F17.210 Nicotine dependence, cigarettes, uncomplicated
CPT/HCPCS: 71101; 99283

== ENCOUNTER 2023-04-06 08:55 | Emergency (ER) | payer MEDICAID, SELFPAY ==
[2023-04-06 08:56] VITALS: BP 135/100; PULSE 113; RESP 20; TEMP 36.3; O2SAT 99; BMI 32.1
--- NOTE | 2023-04-06 10:01 | EX.ED.DYSGE1 ---
HPI History of Present Illness Chief Complaint: General Illness Narrative Narrative: 32-year-old male presenting for evaluation. He states his whole house is getting over the flu. He states his is currently admitted for the flu. Patient states his symptoms onset were Thursday night and they began a little worse on Thursday night. Subjective fevers, chills. He has a cough and shortness of breath. Patient states that he has a chronic radiculopathy in the left arm as well as history of intermittent paresthesias from his stroke that he had distantly. Patient denies any new trauma. Patient states it is worse since he has been at home laying around. 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 He states that after his previous heart attack they wanted to do more to help him but he declined. He states that he takes aspirin every day but has not followed up with anybody to refill his diabetic medication, hypertension medication. He states that I am the type of zenon that goes to work, and comes home . He relates that he has not really seen a doctor because is not time. [facility] Medical History Crohn's colitis DM2 (diabetes mellitus, type 2) HTN (hypertension) SOFIA (obstructive sleep apnea) Home Medications cyclobenzaprine 10 mg tablet 10 mg PO BID PRN muscle spasm #10 tabs 02/15/21 [Rx Last Taken Unknown] hydrocodone-acetaminophen 5-325mg 5mg-325mg 1 tab PO Q6H PRN pain 3 days #10 tabs 02/15/21 [Rx Last Taken Unknown] Allergy/AdvReac Type Severity Reaction Status Date / Time Iodinated Contrast Media Allergy Severe Anaphylaxis Verified 04/06/23 08:58 Social History Smoking Status: Current every day smoker tobacco type: cigarettes EXAM Physical Exam Const Vital Signs: 04/06/23 08:56 04/06/23 10:24 04/06/23 10:15 Temperature 97.4 F L Temperature Source Temporal Pulse Rate 113 H 90 Respiratory Rate 20 H 16 Blood Pressure 135/100 H 128/88 H Blood Pressure Mean 111 101 Pulse Ox 99 97 99 Oxygen Delivery Method Room Air Room Air Room Air 04/06/23 10:15 Temperature Temperature Source Pulse Rate 112 H Respiratory Rate 18 Blood Pressure Blood Pressure Mean Pulse Ox Oxygen Delivery Method MDM MDM MDM Narrative Medical decision making narrative: 32-year-old male presenting with viral symptoms. He states that due to lack of follow-up for his diabetes, hypertension, cardiac issues she is concerned about his heart. He is slightly tachycardic and tachypneic. Lungs are clear to auscultation bilaterally. No wheezing is appreciated. Patient is not hypoxic. Differential includes influenza, COVID, RSV, dehydration, anemia, electrolyte abnormalities, pneumonia. He is not reporting any chest pain although he is concerned for ACS so we will obtain an EKG and high-sensitivity troponin to rule out ACS. D-dimer will be obtained to rule out PE. Chest x-ray to rule out pneumonia. Patient was given a DuoNeb for subjective difficulty breathing although he is not wheezing. Chest x-ray shows no acute process. CBC, BMP all within normal limits with exception of a mildly elevated creatinine of 1.31. High-sensitivity troponin is 5. EKG on my interpretation shows a normal sinus rhythm with a ventricular rate of 84 bpm without sign of ischemic change or ectopy on my interpretation. COVID, RSV are negative but patient positive for influenza B. This was expected as his has influenza. Patient started symptoms on Thursday and he is outside the treatment window for Tamiflu. Recommended follow-up with his PCP. I believe he stable for discharge home. Impression: 1. Influenza B 2. Dyspnea Lab Data Attestation: I reviewed the patient's lab results. Labs: Laboratory Results - last 24 hr 04/06/23 10:15 WBC 6.7 RBC 5.45 Hgb 15.4 Hct 44.8 MCV 82.2 MCH 28.3 MCHC 34.4 RDW Std Deviation 36.7 RDW Coeff of [place] 12.2 Plt Count 241 MPV 10.2 Immature Gran % (Auto) 0.800 Neut % (Auto) 57.1 Lymph % (Auto) 28.5 [place] % (Auto) 12.9 H Eos % (Auto) 0.2 Baso % (Auto) 0.5 Absolute Neuts (auto) 3.8 Absolute Lymphs (auto) 1.90 Nucleated RBC % 0 D-Dimer Quant (PE/DVT) 0.43 Sodium 137 Potassium 3.7 Chloride 103 Carbon Dioxide 27.0 Anion Gap 7 BUN 13 Creatinine 1.31 H Estim Creat Clear Calc 99.53 Est GFR (MDRD) Af Amer 81 Est GFR (MDRD) Non-Af 67 BUN/Creatinine Ratio 9.9 L Glucose 120 H Calcium 9.1 Troponin I High Sens 5 Radiography Diagnostic Testing: Clinical Impression(s) from Imaging Studies Chest X-Ray 04/06/23 10:40 IMPRESSION: Normal x-ray examination of the chest. Electronically Signed: Kyree Hogan MD at 11:00 EST , Discharge Plan Triage Chief Complaint: General Illness ED Provider: Cristobal Tyson Dx/Rx/DC Orders Prescriptions: No Action hydrocodone-acetaminophen 5-325 mg tablet 1 tab PO Q6H PRN (Reason: pain) 3 Days Qty: 10 0RF cyclobenzaprine 10 mg tablet 10 mg PO BID PRN (Reason: muscle spasm) Qty: 10 0RF Primary Care Provider: John Paul Rodriguez Referrals: John Paul Rodriguez, DO [Primary Care Provider] -
[2023-04-06] MEDS: Ipratropium/Albuterol Sulfate 3 ML AMPUL.NEB INHALATION (10:10)
--- OUTSIDE RECORDS SUMMARY | 2023-04-06 10:10 | XMS RPT_ITS | CCD ---
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 Unknown [id number] Progress note 07-18-2020 Note Date & Type Note Facility 07-18-2020 Note HNO ID: [id number] Author: Meron Jhaveri PA-C Service: ? Author Type: Physician Box Maker Wood Type: Progress Notes Filed: 07/18/2020 10:32 AM Note Text: Chief Complaint Patient presents with: Chest Pain: intermittent Memory Problems HPI Tariq Jewell is a 29 year old male who presents here today for Above Complaints.. Patient with multiple complaints. Has previously seen marianne Suarez CNP multiple times since 2018. Today is my first day meeting him. Per patient he had a mild heart attack but then his stress test and rest of cardiac work up was relatively normal. He had seen Dr. Yost. On apr 05 of this year, patient reports he had a stroke and was at [facility]. He left AMA because he had stuff to do. His CT scan was normal but patient had significant slurred speech and weakness. The ER did televisit with [facility] neuro and was advised to admit for MRI and CT on neck/head. Patient never followed up. States he had repeat symptoms the following week. Reports he was basically paralyzed and only had control of 1 limb. Patient states he is having more chest pains and shortness of breath. Not having the energy. Reports that he is struggling more with fatigue. Anxiety: no motivation. States he stopped all his medication although they did seem to help. Never got colonoscopies done. States had an issue with the prep. Didn't rescheduled. Last 3 Encounter Wt Readings: Date: Wt: 07/18/2020 98.4 kg (217 lb) 11/11/2019 121.6 kg (268 lb) 09/12/2019 103 kg (227 lb) Past medical history, appointments, medications, allergies reviewed. Previous Medical History PAST MEDICAL HISTORY Diagnosis Date - Anxiety - Campylobacter enteritis 08/24/2015 - Depression - Diarrhea - JACOB (dyspnea on exertion) - Fatigue - GERD (gastroesophageal reflux disease) - Hyperglycemia - Hypertension - Intermittent chest pain - Sleep apnea - Smokes - Snores - SOBOE (shortness of breath on exertion) - Weakness Previous Surgical History PAST SURGICAL HISTORY Procedure Laterality Date - NONE Family History FAMILY HISTORY Problem Relation Age of Onset - Cancer Mother - Diabetes Mother - Osteoporosis Mother - Heart Father - other (sleep apnea) Father - other (cataracts) Father - Diabetes Maternal Grandmother - Cancer Maternal Grandmother - Heart Maternal Grandmother defibulator - Arthritis Maternal Grandmother - Diabetes Maternal Grandfather - Cancer Maternal Grandfather precancerious - Heart Maternal Grandfather - other (deaf) Paternal Grandfather Patient Allergies ALLERGIES Allergen Reactions - Beef Derived (Bovin* - Iodine Rash - Pork Current Medications Current Outpatient Medications on File Prior to Visit Medication Sig - ACETAMINOPHEN (TYLENOL ORAL) Take by mouth. - buPROPion XL (WELLBUTRIN XL) 300 mg 24 hr tablet Take 1 tablet by mouth once daily. - ondansetron orally disintegrating (ZOFRAN ODT) 4 mg disintegrating tablet Take 1 tablet by mouth every 6 hours as needed for Nausea/Vomiting. - loperamide (IMODIUM A-D) 2 mg cap(s) Take 1 capsule by mouth four times daily as needed. - busPIRone (BUSPAR) 5 mg tablet Take 1 tablet by mouth three times daily. - cholecalciferol, Vitamin D3, (VITAMIN D3) 1,250 mcg (50,000 unit) cap capsule Take 1 capsule by mouth one time a week. - celecoxib (CELEBREX) 100 mg capsule Take 1 capsule by mouth twice daily. With food - albuterol HFA (VENTOLIN HFA) 90 mcg/actuation inhaler Inhale 2 Puffs as instructed every 4 hours as needed for Wheezing/Shortness of Breath. - famotidine (PEPCID) 20 mg tablet Take 1 tablet by mouth at bedtime as needed. - metoprolol succinate ER (TOPROL XL) 25 mg 24 hr tablet Take 1 tablet by mouth once daily. - pantoprazole DR (PROTONIX) 40 mg tablet Take 1 tablet by mouth once daily. No current facility-administered medications on file prior to visit. Social History Social History Tobacco Use - Smoking status: Current Every Day Smoker Packs/day: 0.25 Types: Cigarettes - Smokeless tobacco: Never Used Substance Use Topics - Alcohol use: No - Drug use: No Review of Symptoms REVIEW OF SYSTEMS see hpi EXAM: BP 118/90 Pulse 84 Temp 36.8 ?C (98.2 ?F) Resp 18 Ht 171.2 cm (5' 7.42 ) Wt 98.4 kg (217 lb) BMI 33.56 kg/m? General Appearance: Well appearing, alert, in no acute distress, well-hydrated, well nourished.. Neck: Supple, no adenopathy; thyroid symmetric, normal size, no bruits. Lungs: Lungs clear to auscultation. No wheezing, rhonchi, rales.. Heart: RRR without murmur, gallop, or rubs. No ectopy. Extremities: No deformities, edema, skin discoloration, clubbing or cyanosis. Good capillary refill. . Musculoskeletal: No joint swelling, deformity, or tenderness. Peripheral Pulses: Normal. Neurologic: Gait normal. Reflexes normal and symmetric. Sensation grossly intact.. Health Maintenance List URINE ALBUMIN:CREATININE RATIO Never d (more content not included)... [facility] Clinical Note 05-11-2020 Note Date & Type Note Facility 05-11-2020 Note Patient Outreach ([facility]) TARIQ JEWELL ([id number]) 1990 M [address]* Date Time Provider Department 05/11/20 ORI GROVES During your visit today, we recorded the following information about you: Allergies As of Date: 05/11/2020 Noted Allergy Reaction BEEF DERIVED (BOVINE) 12/09/2004 IODINE 08/20/2015 2 - Rash PORK 12/09/2004 Date Reviewed: 11/11/2019 Reviewed by: Gretchen Donaldson (John) Abdullahi - Fully Assessed Order(s):SARS-COVID VACCINE 1ST DOSE APPT [[id number]] Order #: [id number] FUTURE Prescriptions as of 05/11/2020 Sig: BUPROPION XL 300 MG 24 HR TAB Take 1 tablet by mouth once d* ONDANSETRON 4 MG DISINTEGRATI* Take 1 tablet by mouth every * LOPERAMIDE 2 MG CAPSULE Take 1 capsule by mouth four * BUSPIRONE 5 MG TABLET Take 1 tablet by mouth three * CHOLECALCIFEROL (VITAMIN D3) * Take 1 capsule by mouth one t* CELECOXIB 100 MG CAPSULE Take 1 capsule by mouth twice* ALBUTEROL SULFATE HFA 90 MCG/* Inhale 2 Puffs as instructed * FAMOTIDINE 20 MG TABLET Take 1 tablet by mouth at bed* METOPROLOL SUCCINATE ER 25 MG* Take 1 tablet by mouth once d* PANTOPRAZOLE 40 MG TABLET,DEL* Take 1 tablet by mouth once d* TYLENOL ORAL Take by mouth. 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 Chronic midline low back pain with left-sided s*07/25/2016 Essential hypertension [I10] 12/09/2017 More... SOFIA (obstructive sleep apnea) [G47.33] 12/09/2017 More... Obesity due to excess calories without serious *12/09/2017 More... Asthma [J45.909] 11/11/2019 More... Type 2 diabetes mellitus, without long-term cur*11/11/2019 More... Anxiety and depression [F41.9, F32.9] 11/11/2019 More... Encounter Status:Closed by VEE LATHAM on 05/14/20 [facility] Summary Purpose Family History No Family History Records FoundNo Family History Records Found Advance Directives No Advanced Directives Records FoundNo Advanced Directives Records Found Additional Source Comments (unrecognized sect ion and content) No Status Records FoundNo Status Records Found INFORMATION SOURCE (unrecogn ized section and content) DATE CREATED AUTHOR AUTHOR'S ORGANIZ ATION 03/24/2021 [facility] FOR RECORDS PERTAINING TO PATIENTS WHO ARE OR HAVE BEEN ENROLLED IN A CHEMICAL DEPENDENCY/SUBSTANCEABUSE PROGRAM, SOME INFORMATION MAY BE OMITTED. This clinical summary was aggregated from multiple sources. Caution should be exercised in using it in the provision of clinical care. This summary normalizes information from multiple sources, and as a consequence, information in this document may materially change the coding, format and clinical context of patient data. In addition, data may be omitted in some cases. CLINICAL DECISIONS SHOULD BE BASED ON THE PRIMARY CLINICAL RECORDS. [employer] provides no warranty or guarantee of the accuracy or completeness of information in this document.
[2023-04-06 10:15] VITALS: PULSE 112; RESP 18; O2SAT 99
[2023-04-06] MEDS: 0.9% Normal Saline (1000mL) 1,000 ML 999 ML IV (10:17)
[2023-04-06] MEDS: Ketorolac 15 MG/ML Vial IV (10:17)
[2023-04-06 10:24] VITALS: BP 128/88; PULSE 90; RESP 16; O2SAT 97
[2023-04-06 10:32] LABS: Absolute Neutrophil Count 3.8 X10^3/uL (2.0-7.7); Basophil# 0.03 X10^3/uL; Basophil% 0.5 % (0-1); Eosinophil# 0.01 X10^3/uL; Eosinophils% 0.2 % (0-5); Hematocrit 44.8 % (40-54); Hemoglobin 15.4 g/dL (13.0-16.5); Lymphocyte % 28.5 % (19-41); Mean Corp Hgb Conc 34.4 g/dL (32-36); Mean Corpuscular Hgb 28.3 pg (27.0-32.0); Mean Corpuscular Volume 82.2 fL (80-94); Mean Platelet Vol. 10.2 fl (6.2-12.0); Monocyte# 0.86 X10^3/uL; Monocyte% 12.9 % (0-10); NRBC Flagged by Analyzer 0 % (0-5); Neutrophil # 3.81 X10^3/uL (2.7-7.7); Neutrophil % 57.1 % (47-70); Platelet Count 241 K/mm3 (150-450); RBC Distribution Width CV 12.2 % (11.6-14.6); RBC Distribution Width SD 36.7 fl (35.1-43.9); Red Blood Count 5.45 M/mm3 (4.6-6.2); White Blood Count 6.7 K/mm3 (4.4-11.0)
--- NOTE | 2023-04-06 10:40 | RAD_ITS ---
STUDY: X-RAY CHEST REASON FOR EXAM: Male, 32 years old. Cough. Body aches and shortness of breath. TECHNIQUE: Single AP portable view of the chest. COMPARISON: Comparison is made with prior study dated February 15, 2021. FINDINGS: The lungs are clear and expanded. There is no demonstrated pleural abnormality. Normal size heart. Normal mediastinum and leonardo. Normal visualized pulmonary arteries. Normal visualized aortic arch and descending thoracic aorta. Normal visualized thoracic spine. Normal visualized ribs, clavicles, and shoulders. There is no demonstrated abnormality of the visualized soft tissue structures of the upper abdomen. RAD/Chest 1 View (Portable) IMPRESSION: Normal x-ray examination of the chest. Electronically Signed: Kyree Hogan MD at 11:00 EST ,
[2023-04-06 10:46] LABS: D-Dimer Quantitative (DVT/PE) 0.43 FEU/ug/m (0.27-0.49)
[2023-04-06 10:58] LABS: Anion Gap 7 (5-15); BUN 13 mg/dL (7-18); BUN/Creat Ratio 9.9 RATIO (10-20); Calcium,Total 9.1 mg/dL (8.5-10.1); Chloride 103 mmol/L (98-107); Creatinine, Serum 1.31 mg/dL (0.70-1.30); EST Glomerular Filtration Rate 67 mL/min (>60); Est Glom Filt Rate - Afr Amer 81 mL/min (>60); Estimated Creatinine Clearance 99.53 ml/min; Glucose 120 mg/dL (74-106); Potassium 3.7 mmol/L (3.5-5.1); Sodium Level 137 mmol/L (136-145); Troponin-I HS 5 pg/mL (3.0-78.0)
[2023-04-06 11:53] VITALS: BP 107/80; PULSE 88; RESP 16; O2SAT 99
== END 2023-04-06 11:56 | disposition home or self-care (01) ==
PROVIDERS: Emergency Provider Student in an Organized Health Care Education/Training Program; PCP Student in an Organized Health Care Education/Training Program; Visit Provider Student in an Organized Health Care Education/Training Program
DX: J10.1 Influenza due to other identified influenza virus with other respiratory manifestations (principal); E11.9 Type 2 diabetes mellitus without complications; F17.210 Nicotine dependence, cigarettes, uncomplicated; R06.00 Dyspnea, unspecified; I10 Essential (primary) hypertension
CPT/HCPCS: 71045; 80048; 84484; 85025; 85379; 87631; 93005; 94640; 96361; 96374; 99284; J7030

== ENCOUNTER 2023-06-04 12:40 | Emergency (ER) | payer MEDICAID, SELFPAY ==
[2023-06-04 12:41] VITALS: BP 138/99; PULSE 94; RESP 18; TEMP 36.7; O2SAT 100; BMI 32.4
--- NOTE | 2023-06-04 12:45 | ED.RN ---
I GOT A LOT OF SHIT TO GET FUCKIN' DONE. I CAN'T BE HERE ALL FUCKIN' DAY.
--- NOTE | 2023-06-04 13:01 | CT_ITS ---
EXAM: CT ABDOMEN AND PELVIS WITHOUT INTRAVENOUS CONTRAST CLINICAL INDICATION: Pain TECHNIQUE: Helically acquired images were obtained of the abdomen and pelvis without intravenous contrast. This CT exam was performed using one or more of the following dose reduction techniques: automated exposure control, adjustment of the mA and/or kV according to patient size, and/or use of iterative reconstruction technique. RADIATION DOSE: CTDIvol = 16.73 mGy, DLP = 926.82 mGy-cm COMPARISON: No relevant prior studies available. FINDINGS: LOWER THORAX: Unremarkable. Lung bases are clear. No cardiomegaly. No significant pericardial effusion. ABDOMEN: LIVER: Unremarkable. Homogeneous. GALLBLADDER AND BILE DUCTS: Unremarkable. No calcified gallstones. No gallbladder distention or wall edema. No intra- or extrahepatic biliary ductal dilation. PANCREAS: Unremarkable. No focal cystic mass. SPLEEN: Unremarkable. Normal size without focal cystic or solid mass. ADRENALS: Unremarkable. No nodules. KIDNEYS AND URETERS: Left mild hydronephrosis and hydroureter caused by a 2.1mm UVJ stone. Normal renal size and position. STOMACH AND BOWEL: Unremarkable. No stomach or bowel distention. No focal inflammatory change. PELVIS: APPENDIX: No evidence of acute appendicitis. BLADDER: Unremarkable urinary bladder. There are prostatic calcifications. REPRODUCTIVE: See above. ABDOMEN and PELVIS: INTRAPERITONEAL SPACE: Unremarkable. No ascites or other fluid collection. No free air. BONES/JOINTS: T12 ti vertebrae. This is causing increased kyphosis of the thoracolumbar junction. No suspicious lytic or blastic abnormality. SOFT TISSUES: There is an umbilical hernia containing fat. There is a right-sided inguinal hernia containing adipose tissue. VASCULATURE: Unremarkable. Abdominal aorta is non-dilated. LYMPH NODES: Unremarkable. No enlarged lymph nodes. CT/Abdomen/Pelvis without Cont IMPRESSION: 1. Left mild hydronephrosis and hydroureter caused by a 2.1mm UVJ stone. 2. T12 ti vertebrae. This is causing increased kyphosis of the thoracolumbar junction. 3. There is an umbilical hernia containing fat. Electronically Signed: Ashish Rios MD at 14:24 EDT ,
[2023-06-04 13:16] LABS: Absolute Lymphocyte Count 1.71 X10^3/uL (0.83-4.51); Eosinophil# 0.32 X10^3/uL; Eosinophils% 3.2 % (0-5); Hematocrit 45.2 % (40-54); Hemoglobin 15.1 g/dL (13.0-16.5); Lymphocyte # 1.71 X10^3/ul (0.83-4.51); Lymphocyte % 17.1 % (19-41); Mean Corp Hgb Conc 33.4 g/dL (32-36); Mean Corpuscular Volume 83.9 fL (80-94); Mean Platelet Vol. 9.8 fl (6.2-12.0); Monocyte# 0.82 X10^3/uL; Monocyte% 8.2 % (0-10); NRBC Flagged by Analyzer 0 % (0-5); Neutrophil # 6.96 X10^3/uL (2.7-7.7); Neutrophil % 69.8 % (47-70); Platelet Count 322 K/mm3 (150-450); RBC Distribution Width CV 12.6 % (11.6-14.6); RBC Distribution Width SD 38.2 fl (35.1-43.9); Red Blood Count 5.39 M/mm3 (4.6-6.2)
--- NOTE | 2023-06-04 13:17 | EDS_ITS ---
HPI <FATUMA Jha - Last Filed: 06/04/23 15:59> History of Present Illness Chief Complaint: Male Pain/Injury Narrative Narrative: Patient is a 32-year-old male with no significant medical history who currently does not see a physician who presents to the emergency department for sudden onset of left-sided testicular pain, left-sided flank back pain. Patient states that he had the urge to urinate as well as to defecate however could not do either. Patient states when he is able to urinate it does appear red in appearance. Patient states he is never had this pain before. He denies any vomiting however does have some nausea. Denies any fever or chills. PFSH <FATUMA Jha - Last Filed: 06/04/23 15:59> PFSH Medical History Crohn's colitis DM2 (diabetes mellitus, type 2) HTN (hypertension) SOFIA (obstructive sleep apnea) Home Medications cyclobenzaprine 10 mg tablet 10 mg PO BID PRN muscle spasm #10 tabs 02/15/21 [Rx Last Taken Unknown] hydrocodone-acetaminophen 5-325mg 5mg-325mg 1 tab PO Q6H PRN pain 3 days #10 tabs 02/15/21 [Rx Last Taken Unknown] ondansetron 4 mg disintegrating tablet 4 mg PO Q8H PRN PRN Nausea #10 tabs 06/04/23 [Rx Last Taken Unknown] oxycodone-acetaminophen 5 mg-325 mg tablet (Percocet) 1 tab PO Q8H PRN pain 3 days #10 tabs 06/04/23 [Rx Last Taken Unknown] Allergy/AdvReac Type Severity Reaction Status Date / Time Iodinated Contrast Media Allergy Severe Anaphylaxis Verified 06/04/23 12:42 Social History Smoking Status: Current every day smoker tobacco type: cigarettes ROS <FATUMA Jha - Last Filed: 06/04/23 15:59> ROS ED ROS Narrative Constitutional: Negative for fever, chills, weight loss, weakness Eyes: Negative for vision loss, vision change, double vision ENT: Negative for any sore throat, ear pain, congestion Cardiovascular: Negative for any chest pain, tightness, palpitations Respiratory: Negative for any cough, sputum production, hemoptysis, dyspnea, dyspnea on exertion, orthopnea Gastrointestinal: Negative for any abdominal pain,vomiting, diarrhea, constipation, blood in stool, blood in vomit : Negative for any urinary frequency, dysuria, retention. Blood in urine, left-sided testicular pain Muscle skeletal: Negative for any neck pain. Positive left-sided flank pain Neurological: Negative for any headache, syncope, dizziness Skin: Negative for any rashes, itching, abrasions, lacerations Psychiatric: Negative for any depression, anxiety, stress, suicidal ideation, homicidal ideation Hematologic: Negative for any excessive bruising, easy bleeding EXAM <FATUMA Jha - Last Filed: 06/04/23 15:59> Physical Exam Narrative Exam Narrative: Vital signs reviewed. HEET: Head normocephalic atraumatic, TMs clear bilaterally. Posterior pharynx is clear, moist mucous membranes. Nares clear bilaterally. Neck: Supple with no lymphadenopathy or tenderness. No signs of meningismus. Cardiac: Regular rate and rhythm no murmurs gallops or rubs, equal peripheral pulses bilaterally. Respiratory: Lungs clear to auscultation bilaterally. No chest tenderness. Abdomen: Soft, nontender, nondistended. No abdominal bruit or pulsatile masses. No hepatosplenomegaly Extremities: No peripheral edema, no signs of gross trauma or deformity. Active full range of motion of all extremities. Neuro: Cranial nerves II through XII intact, no focal neurological deficits. Skin: Clean dry and intact with no rash, purpura, petechiae, vesicles or pustules. Backs/flank: Positive for left-sided CVA tenderness, no midline spinal tenderness, no deformity. Psych: Normal mood and affect. No SI, HI or acute psychosis. testicular: Testicular exam showed some pain on palpation to the left testicle more towards the posterior aspect however there is no swelling, is no evidence of any cellulitis. Const Vital Signs: 06/04/23 12:41 06/04/23 13:30 06/04/23 14:00 Temperature 98.1 F Temperature Source Temporal Pulse Rate 94 87 84 Respiratory Rate 18 18 18 Blood Pressure 138/99 H 131/96 H 114/80 Blood Pressure Mean 112 106 89 Pulse Ox 100 97 95 Oxygen Delivery Method Room Air Room Air 06/04/23 15:00 06/04/23 16:01 06/04/23 16:00 Temperature 97.5 F L Temperature Source Pulse Rate 78 80 65 Respiratory Rate 18 18 18 Blood Pressure 185/147 H 125/96 H 106/64 Blood Pressure Mean 158 105 78 Pulse Ox 97 99 97 Oxygen Delivery Method Room Air Positive well nourished and well developed General Appearance ED: well developed <Dr. Karthik Lima DO - Last Filed: 06/04/23 22:30> Physical Exam Const Vital Signs: 06/04/23 12:41 06/04/23 13:30 06/04/23 14:00 Temperature 98.1 F Temperature Source Temporal Pulse Rate 94 87 84 Respiratory Rate 18 18 18 Blood Pressure 138/99 H 131/96 H 114/80 Blood Pressure Mean 112 106 89 Pulse Ox 100 97 95 Oxygen Delivery Method Room Air Room Air 06/04/23 15:00 06/04/23 16:01 06/04/23 16:00 Temperature 97.5 F L Temperature Source Pulse Rate 78 80 65 Respiratory Rate 18 18 18 Blood Pressure 185/147 H 125/96 H 106/64 Blood Pressure Mean 158 105 78 Pulse Ox 97 99 97 Oxygen Delivery Method Room Air MDM <FATUMA Jha - Last Filed: 06/04/23 15:59> [facility] Lab Data Labs: Laboratory Results - last 24 hr 06/04/23 06/04/23 13:05 15:15 WBC 10.0 RBC 5.39 Hgb 15.1 Hct 45.2 MCV 83.9 MCH 28.0 MCHC 33.4 RDW Std Deviation 38.2 RDW Coeff of Colten 12.6 Plt Count 322 MPV 9.8 Immature Gran % (Auto) 0.700 Neut % (Auto) 69.8 Lymph % (Auto) 17.1 L Winkler % (Auto) 8.2 Eos % (Auto) 3.2 Baso % (Auto) 1.0 Absolute Neuts (auto) 7.0 Absolute Lymphs (auto) 1.71 Nucleated RBC % 0 Sodium 139 Potassium 4.2 Chloride 108 H Carbon Dioxide 26.0 Anion Gap 5 BUN 13 Creatinine 1.41 H Estim Creat Clear Calc 92.96 Est GFR (MDRD) Af Amer 75 Est GFR (MDRD) Non-Af 62 BUN/Creatinine Ratio 9.2 L Glucose 128 H Calcium 9.7 Total Bilirubin 0.40 AST 25 ALT 56 Alkaline Phosphatase 107 Total Protein 7.7 Albumin 4.0 Globulin 3.7 Albumin/Globulin Ratio 1.1 Lipase 73 Urine Color Yellow Urine Clarity Sl. Cloudy Urine pH 7.0 Ur Specific [place] 1.020 Urine Protein 30 H Urine Glucose (UA) Normal Urine Ketones 5 H Urine Occult Blood 250 H Urine Nitrite Negative Urine Bilirubin Negative Urine Urobilinogen Normal Ur Leukocyte Esterase 25 H Urine RBC 25-50 SEEN Urine WBC 0-5 SEEN Ur Squamous Epith Cells 0 SEEN Urine Bacteria 0 SEEN Urine Mucus 0 SEEN Radiography Diagnostic Testing: Clinical Impression(s) from Imaging Studies Abdomen/Pelvis CT 06/04/23 13:01 IMPRESSION: 1. Left mild hydronephrosis and hydroureter caused by a 2.1mm UVJ stone. 2. T12 ti vertebrae. This is causing increased kyphosis of the thoracolumbar junction. 3. There is an umbilical hernia containing fat. Electronically Signed: Ashish Rios MD at 14:24 EDT , Treatment and Re-Evaluation Narrative: Differential diagnosis includes however is not limited to: Obstructing uropathy, epididymitis, UTI, STD, Patient on my initial examination appears to be in mild distress secondary to pain to his left flank, left testicle. Vital signs are stable, patient looks nontoxic. Patient did receive a full abdominal workup, CBC was unremarkable, chemistries showed a creatinine of 1.4, however over the last 2 to 3 years, the patient is around 1.3 normally. Blood glucose of 128, lipase was negative. Patient on reevaluation did feel better after IV fluids, Zofran, morphine and Toradol. CT scan interpreted by ER physician shows a left mild hydronephrosis and hydroureter caused by 2.1 mm UVJ stone. 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 Umbilical hernia containing fat. At this time, patient is currently waiting for urinalysis to ensure that he does not have an infected urine. Patient's urinalysis shows blood however no infection. On reevaluation, the patient be stable for discharge. He be given pain medicine, nausea medicine. He will take ibuprofen and Tylenol at home. He instructed to follow-up with his PCP, all questions were answered, patient stable for discharge <Dr. Karthik Lima, DO - Last Filed: 06/04/23 22:30> [facility] History & Record Review Discussion w/independent historian: Patient Lab Data Attestation: I reviewed the patient's lab results. Labs: Laboratory Results - last 24 hr 06/04/23 06/04/23 13:05 15:15 WBC 10.0 RBC 5.39 Hgb 15.1 Hct 45.2 MCV 83.9 MCH 28.0 MCHC 33.4 RDW Std Deviation 38.2 RDW Coeff of Colten 12.6 Plt Count 322 MPV 9.8 Immature Gran % (Auto) 0.700 Neut % (Auto) 69.8 Lymph % (Auto) 17.1 L Winkler % (Auto) 8.2 Eos % (Auto) 3.2 Baso % (Auto) 1.0 Absolute Neuts (auto) 7.0 Absolute Lymphs (auto) 1.71 Nucleated RBC % 0 Sodium 139 Potassium 4.2 Chloride 108 H Carbon Dioxide 26.0 Anion Gap 5 BUN 13 Creatinine 1.41 H Estim Creat Clear Calc 92.96 Est GFR (MDRD) Af Amer 75 Est GFR (MDRD) Non-Af 62 BUN/Creatinine Ratio 9.2 L Glucose 128 H Calcium 9.7 Total Bilirubin 0.40 AST 25 ALT 56 Alkaline Phosphatase 107 Total Protein 7.7 Albumin 4.0 Globulin 3.7 Albumin/Globulin Ratio 1.1 Lipase 73 Urine Color Yellow Urine Clarity Sl. Cloudy Urine pH 7.0 Ur Specific [place] 1.020 Urine Protein 30 H Urine Glucose (UA) Normal Urine Ketones 5 H Urine Occult Blood 250 H Urine Nitrite Negative Urine Bilirubin Negative Urine Urobilinogen Normal Ur Leukocyte Esterase 25 H Urine RBC 25-50 SEEN Urine WBC 0-5 SEEN Ur Squamous Epith Cells 0 SEEN Urine Bacteria 0 SEEN Urine Mucus 0 SEEN Radiography Diagnostic Testing: Clinical Impression(s) from Imaging Studies Abdomen/Pelvis CT 06/04/23 13:01 IMPRESSION: 1. Left mild hydronephrosis and hydroureter caused by a 2.1mm UVJ stone. 2. T12 ti vertebrae. This is causing increased kyphosis of the thoracolumbar junction. 3. There is an umbilical hernia containing fat. Electronically Signed: Ashish Rios MD at 14:24 EDT , Treatment and Re-Evaluation Narrative: Differential diagnosis includes however is not limited to: Obstructing uropathy, epididymitis, UTI, STD, Patient on my initial examination appears to be in mild distress secondary to pain to his left flank, left testicle. Vital signs are stable, patient looks nontoxic. Patient did receive a full abdominal workup, CBC was unremarkable, c hemistries showed a creatinine of 1.4, however over the last 2 to 3 years, the patient is around 1.3 normally. Blood glucose of 128, lipase was negative. Patient on reevaluation did feel better after IV fluids, Zofran, morphine and Toradol. CT scan interpreted by ER physician shows a left mild hydronephrosis and hydroureter caused by 2.1 mm UVJ stone. 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 Umbilical hernia containing fat. At this time, patient is currently waiting for urinalysis to ensure that he does not have an infected urine. Patient's urinalysis shows blood however no infection. On reevaluation, the patient be stable for discharge. He be given pain medicine, nausea medicine. He will take ibuprofen and Tylenol at home. He instructed to follow-up with his PCP, all questions were answered, patient stable for discharge I have personally performed a face to face assessment of the patient and have reviewed the SHARON Note. I performed a substantive portion of the visit including all aspects of the following. My dee findings include: History is 32-year-old male with sudden onset of testicular and flank pain. Patient denies history of kidney stones. He is a diabetic with a history of hypertension. Exam is patient in no acute distress. Patient continuously uses foul language and comes off is rather abrasive/aggressive. Testicular exam performed by nurse practitioner. No CVA tenderness. No rashes Medical Decison Making CT of the flank demonstrates a distal ureteral stone at the UVJ possibly already into the bladder measuring about 3 mm. There is some microscopic hematuria. Slight elevation of his creatinine most likely due to the hydronephrosis. Patient given pain medications. Recommend follow-up as needed with urology. Patient to return if worsening or no improvement Discharge Plan Triage Chief Complaint: Male Pain/Injury ED Midlevel Provider: Trent Kate ED Provider: Karthik Lima Dx/Rx/DC Orders Clinical Impression: Acute flank pain, Kidney calculi Instructions: Kidney Problems, Identifying Kidney Stones Prescriptions: New ondansetron 4 mg tablet,disintegrating 4 mg PO Q8H PRN PRN (Reason: Nausea) Qty: 10 0RF oxycodone-acetaminophen [Percocet] 5-325 mg tablet 1 tab PO Q8H PRN (Reason: pain) 3 Days Qty: 10 0RF No Action hydrocodone-acetaminophen 5-325 mg tablet 1 tab PO Q6H PRN (Reason: pain) 3 Days Qty: 10 0RF cyclobenzaprine 10 mg tablet 10 mg PO BID PRN (Reason: muscle spasm) Qty: 10 0RF Primary Care Provider: John Paul Rodriguez Referrals: John Paul Rodriguez, [Primary Care Provider] - Activity Restrictions/Additional Instructions: Maintain hydration, use the pain medicine nausea medicine as needed. If you get a fever, worsening pain please follow-up Disposition Disposition: Home, Self Care Discharge Date/Time: 06/04/23 16:06
[2023-06-04] MEDS: Ondansetron 4 MG/2 ML Vial IV (13:19)
[2023-06-04] MEDS: 0.9% Normal Saline (1000mL) 1,000 ML 1000 ML IV (13:19)
[2023-06-04] MEDS: Ketorolac 15 MG/ML Vial IV (13:20)
[2023-06-04] MEDS: Morphine 4 MG/ML Syringe IV (13:22)
[2023-06-04 13:30] VITALS: BP 131/96; PULSE 87; RESP 18; O2SAT 97
[2023-06-04 13:39] LABS: ALB/GLOB Ratio 1.1 RATIO (0.9-2.4); AST(SGOT) 25 U/L (15-37); Alanine Aminotransfer ALT/SGPT 56 U/L (16-61); Alkaline Phosphatase 107 U/L (45-117); Anion Gap 5 (5-15); BUN 13 mg/dL (7-18); BUN/Creat Ratio 9.2 RATIO (10-20); Calcium,Total 9.7 mg/dL (8.5-10.1); Chloride 108 mmol/L (98-107); Creatinine, Serum 1.41 mg/dL (0.70-1.30); EST Glomerular Filtration Rate 62 mL/min (>60); Est Glom Filt Rate - Afr Amer 75 mL/min (>60); Estimated Creatinine Clearance 92.96 ml/min; Globulin 3.7 g/dL (2.2-4.2); Glucose 128 mg/dL (74-106); Lipase 73 U/L (13-75); Potassium 4.2 mmol/L (3.5-5.1); Protein, Total 7.7 g/dL (6.4-8.2); Sodium Level 139 mmol/L (136-145)
[2023-06-04 14:00] VITALS: BP 114/80; PULSE 84; RESP 18; O2SAT 95
[2023-06-04 15:00] VITALS: BP 185/147; PULSE 78; RESP 18; O2SAT 97
[2023-06-04 15:28] LABS: Bacteria 0 SEEN /hpf (None Seen); Mucous, Urine 0 SEEN /hpf (<or=2+); Squamous Epithelial Cells - UA 0 SEEN /hpf (0-5)
[2023-06-04 15:41] LABS: Color, Urine Yellow (Yellow); Glucose, Dipstick Normal (Normal); Ketone-Dipstick 5 mg/dl (Negative); Leukocyte Esterase-Dipstick 25 /ul (Negative); Nitrite-Dipstick Negative (Negative); Occult Blood-Urine 250 /ul (Negative); Protein-Dipstick 30 mg/dl (Negative); Urine Bilirubin Dipstick Negative (Negative); Urine Clarity Sl. Cloudy (Clear); Urine Urobilinogen Normal (Normal)
[2023-06-04 15:49] LABS: Red Blood Cells-Urine 25-50 SEEN /hpf (0-5); White Blood Cells 0-5 SEEN /hpf (0-5)
[2023-06-04 16:00] VITALS: BP 106/64; PULSE 65; RESP 18; O2SAT 97
[2023-06-04 16:01] VITALS: BP 125/96; PULSE 80; RESP 18; TEMP 36.4; O2SAT 99
== END 2023-06-04 16:06 | disposition home or self-care (01) ==
PROVIDERS: Nurse Practitioner; Emergency Provider Emergency Medicine; PCP Student in an Organized Health Care Education/Training Program; Visit Provider Emergency Medicine
DX: R10.9 Unspecified abdominal pain (principal); E11.9 Type 2 diabetes mellitus without complications; N13.2 Hydronephrosis with renal and ureteral calculous obstruction; F17.210 Nicotine dependence, cigarettes, uncomplicated; I10 Essential (primary) hypertension
CPT/HCPCS: 74176; 80053; 81001; 83690; 85025; 96361; 96374; 96375; 99282; J2405; J7030

== ENCOUNTER 2023-06-06 14:16 | Observation (INO) | payer MEDICAID, SELFPAY ==
[2023-06-06] VITALS (7 sets, daily range): BP systolic 117–156; BP diastolic 74–102; PULSE 65–90; RESP 14–18; TEMP 36.3–36.8; O2SAT 96–99; BMI 35.3; BMI 31.8
--- NOTE | 2023-06-06 14:27 | EX.ED.DYSGE1 ---
HPI <ALEJANDRA Fernandez - Last Filed: 06/06/23 17:27> History of Present Illness Chief Complaint: Flank Pain Narrative Narrative: 32-year-old male was seen here 2 days ago for left sided flank pain and had a CT scan showing hydronephrosis with a 2 mm UVJ stone. He states despite Zofran and oxycodone he is still vomiting and not keeping down the pain medication and his pain is not manageable. Today he urinated once but feels like it is less than usual. He is also not had a bowel movement in 3 days. He has no fever or chills. PFSH <ALEJANDRA Fernandez - Last Filed: 06/06/23 17:27> [facility] Medical History Crohn's colitis DM2 (diabetes mellitus, type 2) HTN (hypertension) SOFIA (obstructive sleep apnea) Home Medications cyclobenzaprine 10 mg tablet 10 mg PO BID PRN muscle spasm #10 tabs 02/15/21 [Rx Last Taken Unknown] hydrocodone-acetaminophen 5-325mg 5mg-325mg 1 tab PO Q6H PRN pain 3 days #10 tabs 02/15/21 [Rx Last Taken Unknown] ondansetron 4 mg disintegrating tablet 4 mg PO Q8H PRN PRN Nausea #10 tabs 06/04/23 [Rx Last Taken Unknown] oxycodone-acetaminophen 5 mg-325 mg tablet (Percocet) 1 tab PO Q8H PRN pain 3 days #10 tabs 06/04/23 [Rx Last Taken Unknown] Allergy/AdvReac Type Severity Reaction Status Date / Time Iodinated Contrast Media Allergy Severe Anaphylaxis Verified 06/04/23 12:42 Social History Smoking Status: Current every day smoker tobacco type: cigarettes ROS <ALEJANDRA Fernandez - Last Filed: 06/06/23 17:27> ROS ED ROS Narrative Constitutional: Negative for fever, chills, malaise. GI: Positive for abdominal pain, nausea, vomiting. : Negative for dysuria, hematuria. EXAM <ALEJANDRA Fernandez - Last Filed: 06/06/23 17:27> Physical Exam Narrative Exam Narrative: CONST: Patient standing leaning over the bed appears uncomfortable. EYES: Normal inspection. NECK: Normal inspection. RESP: No respiratory distress, CTAB. CVS: Regular rate and rhythm, no murmur, no gallop. ABD: Soft and nontender, no guarding or rebound, nondistended. Back: Normal inspection, left CVA tenderness. SKIN: Color normal, no rash, warm, dry, intact. EXTREMITIES: Normal appearance, no pedal edema. NEURO: Alert and answering questions appropriately. PSYCH: Normal affect. Const Vital Signs: 06/06/23 14:16 06/06/23 14:16 06/06/23 15:16 Temperature 97.3 F L 98.2 F Temperature Source Temporal Oral Pulse Rate 90 79 69 Respiratory Rate 18 15 16 Blood Pressure 154/102 H 148/86 H 156/80 H Blood Pressure Mean 119 106 105 Pulse Ox 98 96 99 Oxygen Delivery Method Room Air Room Air Room Air 06/06/23 17:00 06/06/23 16:16 06/06/23 17:08 Temperature 97.7 F L 97.7 F L Temperature Source Oral Pulse Rate 88 65 88 Respiratory Rate 16 14 16 Blood Pressure 117/74 120/89 H 117/74 Blood Pressure Mean 88 99 88 Pulse Ox 99 96 96 Oxygen Delivery Method Room Air Room Air <Dr. Blanca Vila DO - Last Filed: 06/06/23 17:01> Physical Exam Const Vital Signs: 06/06/23 14:16 06/06/23 14:16 06/06/23 15:16 Temperature 97.3 F L 98.2 F Temperature Source Temporal Oral Pulse Rate 90 79 69 Respiratory Rate 18 15 16 Blood Pressure 154/102 H 148/86 H 156/80 H Blood Pressure Mean 119 106 105 Pulse Ox 98 96 99 Oxygen Delivery Method Room Air Room Air Room Air 06/06/23 17:00 06/06/23 16:16 06/06/23 17:08 Temperature 97.7 F L 97.7 F L Temperature Source Oral Pulse Rate 88 65 88 Respiratory Rate 16 14 16 Blood Pressure 117/74 120/89 H 117/74 Blood Pressure Mean 88 99 88 Pulse Ox 99 96 96 Oxygen Delivery Method Room Air Room Air MDM <Nighat Alvarez PA - Last Filed: 06/06/23 17:27> MDM MDM Narrative Medical decision making narrative: History gathered from: Patient and spouse Differential: Intractable pain from kidney stone, MAIA, UTI Consults: Urology and hospitalist Patient presents with nausea and vomiting and left flank pain. CT scan 2 days ago showed 2 mm left UVJ stone with hydronephrosis. He has not been able to keep down his pain medication. He appears uncomfortable but nontoxic and is mildly hypertensive with otherwise stable vital signs. He has left CVA tenderness. Labs show white count of 11.5. There is MAIA with creatinine of 2.07 (previously 1.41). Bladder scan shows less than 10 cc so he is not retaining. Urinalysis has RBCs/WBCs but is nitrite and bacteria negative. CT scan shows similar 2.4 mm left UVJ stone with hydronephrosis. I discussed the case with urology, Dr. Gupta, who recommended admission to medicine for continued IV hydration and pain control. He states this size stone will not require a stent. Case will be discussed with the hospitalist for admission. Patient seen and evaluated with SHARON. I personally interviewed and examined the patient. I was involved in all aspects of patient's orders, interpretation of results, and treatment. Patient presents the emergency department complaint of left-sided flank pain that initially started 3 days ago. Patient was seen in the emergency department 2 days ago and diagnosed with a 2.1 mm left UVJ stone. Patient was sent home with oxycodone for pain. Patient states he is throwing up and having a hard time keeping his medicine down. Currently rates his pain an 8 out of 10. Patient also states he has not had a bowel movement in 3 days despite taking MiraLAX. Patient describes decreased urine output. HEENT-PERRLA, EOMI, atraumatic Cardiovascular-heart is regular rate and rhythm without murmur Lungs-clear to auscultation bilaterally. No tachypnea or accessory muscle use or retractions. Abdomen-patient has tenderness palpation over the left lower quadrant with some guarding. There is no rebound, rigidity, or purulent signs. No masses palpated. Extremities-intact x 4 Patient presents with left flank pain with known kidney stone measuring 2.1 cm at the left UVJ. Will obtain basic labs and treat his pain. Patient will have his urine checked. Patient had basic lab work that showed an elevated white blood cell count 11.5 with hemoglobin 13.9 and platelet count of 266. Chemistries unremarkable other than he does have acute kidney injury with BUN of 19 and creatinine of 2.07. Urinalysis without signs of infection. We discussed case with nephrology who recommended admission for IV hydration. Discussed case with hospitalist will evaluate patient for admission. Lab Data Attestation: I reviewed the patient's lab results. Labs: Laboratory Results - last 24 hr 06/06/23 06/06/23 14:35 15:45 WBC 11.5 H RBC 4.81 Hgb 13.9 Hct 40.8 MCV 84.8 MCH 28.9 MCHC 34.1 RDW Std Deviation 38.7 RDW Coeff of [place] 12.6 Plt Count 266 MPV 9.6 Immature Gran % (Auto) 0.300 Neut % (Auto) 69.9 Lymph % (Auto) 18.2 L [place] % (Auto) 9.6 Eos % (Auto) 1.6 Baso % (Auto) 0.4 Absolute Neuts (auto) 8.0 H Absolute Lymphs (auto) 2.09 Nucleated RBC % 0 Sodium 137 Potassium 3.6 Chloride 106 Carbon Dioxide 26.0 Anion Gap 5 BUN 19 H Creatinine 2.07 H Estim Creat Clear Calc 66.07 Est GFR (MDRD) Af Amer 48 L Est GFR (MDRD) Non-Af 40 L BUN/Creatinine Ratio 9.2 L Glucose 105 Calcium 8.7 Urine Color Yellow Urine Clarity Clear Urine pH 6.5 Ur Specific [place] 1.015 Urine Protein 15 H Urine Glucose (UA) Normal Urine Ketones 5 H Urine Occult Blood 150 H Urine Nitrite Negative Urine Bilirubin Negative Urine Urobilinogen Normal Ur Leukocyte Esterase 100 H Urine RBC 5-10 SEEN Urine WBC 5-10 SEEN Ur Squamous Epith Cells 0 SEEN Urine Bacteria RARE Urine Mucus RARE Radiography Diagnostic Testing: Clinical Impression(s) from Imaging Studies Abdomen/Pelvis CT 06/06/23 14:38 IMPRESSION: (NOT LISTED IN ORDER OF SIGNIFICANCE) Moderate hydronephrosis of the left kidney with hydroureter from a 2.4mm UVJ stone. Other findings as above. Electronically Signed: Ashish Rios MD at 15:52 EDT , <Dr. Blanca Vila, DO - Last Filed: 06/06/23 17:01> [facility] Narrative Medical decision making narrative: History gathered from: Patient and spouse Patient presents with nausea and vomiting and left flank pain. CT scan 2 days ago showed 2 mm left UVJ stone with hydronephrosis. He has not been able to keep down his pain medication. He appears uncomfortable but nontoxic and is mildly hypertensive with otherwise stable vital signs. He has left CVA tenderness. Labs show white count of 11.5. There is MAIA with creatinine of 2.07 (previously 1.41). Bladder scan shows less than 10 cc so he is not retaining. Urinalysis has RBCs/WBCs but is nitrite and bacteria negative. CT scan shows similar 2.4 mm left UVJ stone with hydronephrosis. I discussed the case with urology, Dr. Gupta, who recommended admission to medicine for continued IV hydration and pain control. He states this size stone will not require a stent. Case will be discussed with the hospitalist for admission. Patient seen and evaluated with SHARON. I personally interviewed and examined the patient. I was involved in all aspects of patient's orders, interpretation of results, and treatment. Patient presents the emergency department complaint of left-sided flank pain that initially started 3 days ago. Patient was seen in the emergency department 2 days ago and diagnosed with a 2.1 mm left UVJ stone. Patient was sent home with oxycodone for pain. Patient states he is throwing up and having a hard time keeping his medicine down. Currently rates his pain an 8 out of 10. Patient also states he has not had a bowel movement in 3 days despite taking MiraLAX. Patient describes decreased urine output. HEENT-PERRLA, EOMI, atraumatic Cardiovascular-heart is regular rate and rhythm without murmur Lungs-clear to auscultation bilaterally. No tachypnea or accessory muscle use or retractions. Abdomen-patient has tenderness palpation over the left lower quadrant with some guarding. There is no rebound, rigidity, or purulent signs. No masses palpated. Extremities-intact x 4 Patient presents with left flank pain with known kidney stone measuring 2.1 cm at the left UVJ. Will obtain basic labs and treat his pain. Patient will have his urine checked. Patient had basic lab work that showed an elevated white blood cell count 11.5 with hemoglobin 13.9 and platelet count of 266. Chemistries unremarkable other than he does have acute kidney injury with BUN of 19 and creatinine of 2.07. Urinalysis without signs of infection. We discussed case with nephrology who recommended admission for IV hydration. Discussed case with hospitalist will evaluate patient for admission. Lab Data Labs: Laboratory Results - last 24 hr 06/06/23 06/06/23 14:35 15:45 WBC 11.5 H RBC 4.81 Hgb 13.9 Hct 40.8 MCV 84.8 MCH 28.9 MCHC 34.1 RDW Std Deviation 38.7 RDW Coeff of [place] 12.6 Plt Count 266 MPV 9.6 Immature Gran % (Auto) 0.300 Neut % (Auto) 69.9 Lymph % (Auto) 18.2 L [place] % (Auto) 9.6 Eos % (Auto) 1.6 Baso % (Auto) 0.4 Absolute Neuts (auto) 8.0 H Absolute Lymphs (auto) 2.09 Nucleated RBC % 0 Sodium 137 Potassium 3.6 Chloride 106 Carbon Dioxide 26.0 Anion Gap 5 BUN 19 H Creatinine 2.07 H Estim Creat Clear Calc 66.07 Est GFR (MDRD) Af Amer 48 L Est GFR (MDRD) Non-Af 40 L BUN/Creatinine Ratio 9.2 L Glucose 105 Calcium 8.7 Urine Color Yellow Urine Clarity Clear Urine pH 6.5 Ur Specific [place] 1.015 Urine Protein 15 H Urine Glucose (UA) Normal Urine Ketones 5 H Urine Occult Blood 150 H Urine Nitrite Negative Urine Bilirubin Negative Urine Urobilinogen Normal Ur Leukocyte Esterase 100 H Urine RBC 5-10 SEEN Urine WBC 5-10 SEEN Ur Squamous Epith Cells 0 SEEN Urine Bacteria RARE Urine Mucus RARE Radiography Diagnostic Testing: Clinical Impression(s) from Imaging Studies Abdomen/Pelvis CT 06/06/23 14:38 IMPRESSION: (NOT LISTED IN ORDER OF SIGNIFICANCE) Moderate hydronephrosis of the left kidney with hydroureter from a 2.4mm UVJ stone. Other findings as above. Electronically Signed: Ashish Rios MD at 15:52 EDT , Discharge Plan Triage Chief Complaint: Flank Pain ED Midlevel Provider: Nighat Alvarez ED Provider: Blanca Vila Dx/Rx/DC Orders Clinical Impression: Calculus of left kidney, Acute kidney injury, Nausea and vomiting Prescriptions: No Action hydrocodone-acetaminophen 5-325 mg tablet 1 tab PO Q6H PRN (Reason: pain) 3 Days Qty: 10 0RF cyclobenzaprine 10 mg tablet 10 mg PO BID PRN (Reason: muscle spasm) Qty: 10 0RF ondansetron 4 mg tablet,disintegrating 4 mg PO Q8H PRN PRN (Reason: Nausea) Qty: 10 0RF oxycodone-acetaminophen [Percocet] 5-325 mg tablet 1 tab PO Q8H PRN (Reason: pain) 3 Days Qty: 10 0RF Primary Care Provider: John Paul Rodriguez Referrals: John Paul Rodriguez DO [Primary Care Provider] -
--- NOTE | 2023-06-06 14:38 | CT_ITS ---
STUDY: CT Abdomen And Pelvis W/O Contrast Injection 06/06/2023 3:47 PM REASON FOR EXAM: Male, 32 years old. ABDOMINAL PAIN abdominal pain, left urolithiasis TECHNIQUE: Transaxial images were obtained without oral contrast, and without intravenous contrast. Individualized dose optimization techniques were used for this CT. COMPARISON: 06.04.23 FINDINGS: The visualized lung bases are unremarkable. The visualized portions of the heart are within normal limits. Unremarkable liver. Unremarkable gallbladder and extrahepatic biliary system. Unremarkable spleen. Unremarkable pancreas. Unremarkable bilateral adrenal glands. No acute findings of the right kidney. Moderate hydronephrosis of the left kidney with hydroureter from a 2.4mm UVJ stone. Unremarkable visualized stomach. Unremarkable small intestine. Unremarkable colon. The appendix is visualized and appears unremarkable. There are no acute findings of the abdominal aorta. Unremarkable inferior vena cava. Subcentimeter mesenteric lymph nodes. Unremarkable urinary bladder. There are prostatic calcifications. There is an umbilical hernia containing fat. T12 ti vertebrae. This is causing increased kyphosis of the thoracolumbar junction. CT/Abdomen/Pelvis without Cont IMPRESSION: (NOT LISTED IN ORDER OF SIGNIFICANCE) Moderate hydronephrosis of the left kidney with hydroureter from a 2.4mm UVJ stone. Other findings as above. Electronically Signed: Ashish Rios MD at 15:52 EDT ,
[2023-06-06 14:39] LABS: Absolute Lymphocyte Count 2.09 X10^3/uL (0.83-4.51); Basophil# 0.05 X10^3/uL; Basophil% 0.4 % (0-1); Eosinophil# 0.18 X10^3/uL; Eosinophils% 1.6 % (0-5); Hematocrit 40.8 % (40-54); Hemoglobin 13.9 g/dL (13.0-16.5); Lymphocyte # 2.09 X10^3/ul (0.83-4.51); Lymphocyte % 18.2 % (19-41); Mean Corp Hgb Conc 34.1 g/dL (32-36); Mean Corpuscular Hgb 28.9 pg (27.0-32.0); Mean Corpuscular Volume 84.8 fL (80-94); Mean Platelet Vol. 9.6 fl (6.2-12.0); Monocyte% 9.6 % (0-10); NRBC Flagged by Analyzer 0 % (0-5); Neutrophil # 8.04 X10^3/uL (2.7-7.7); Neutrophil % 69.9 % (47-70); Platelet Count 266 K/mm3 (150-450); RBC Distribution Width CV 12.6 % (11.6-14.6); RBC Distribution Width SD 38.7 fl (35.1-43.9); Red Blood Count 4.81 M/mm3 (4.6-6.2); White Blood Count 11.5 K/mm3 (4.4-11.0)
[2023-06-06 14:51] LABS: Anion Gap 5 (5-15); BUN 19 mg/dL (7-18); BUN/Creat Ratio 9.2 RATIO (10-20); Calcium,Total 8.7 mg/dL (8.5-10.1); Chloride 106 mmol/L (98-107); Creatinine, Serum 2.07 mg/dL (0.70-1.30); EST Glomerular Filtration Rate 40 mL/min (>60); Est Glom Filt Rate - Afr Amer 48 mL/min (>60); Estimated Creatinine Clearance 66.07 ml/min; Glucose 105 mg/dL (74-106); Potassium 3.6 mmol/L (3.5-5.1); Sodium Level 137 mmol/L (136-145)
[2023-06-06] MEDS: Ondansetron 4 MG/2 ML Vial IV (14:53)
[2023-06-06] MEDS: 0.9% Normal Saline (1000mL) 1,000 ML 999 ML IV (14:53)
[2023-06-06] MEDS: Ketorolac 30 MG/ML Syringe IV (14:53)
[2023-06-06 15:53] LABS: Squamous Epithelial Cells - UA 0 SEEN /hpf (0-5)
[2023-06-06 15:54] LABS: Color, Urine Yellow (Yellow); Glucose, Dipstick Normal (Normal); Ketone-Dipstick 5 mg/dl (Negative); Leukocyte Esterase-Dipstick 100 /ul (Negative); Nitrite-Dipstick Negative (Negative); Occult Blood-Urine 150 /ul (Negative); Protein-Dipstick 15 mg/dl (Negative); Specific Gravity, Urine 1.015 (1.002-1.030); Urine Bilirubin Dipstick Negative (Negative); Urine Clarity Clear (Clear); Urine Urobilinogen Normal (Normal); Urine pH 6.5 (5.0 - 8.0)
[2023-06-06 16:08] LABS: Bacteria RARE /hpf (None Seen); Mucous, Urine RARE /hpf (<or=2+); Red Blood Cells-Urine 5-10 SEEN /hpf (0-5); White Blood Cells 5-10 SEEN /hpf (0-5)
--- NOTE | 2023-06-06 17:10 | PCM.HP.STD ---
HPI - General General Date of Admission: 06/06/23 Date of Service: 06/06/23 Chief Complaint: Left flank pain HPI Narrative VITO JEWELL, is a 32 M who presents who presents with left flank pain. Patient had been seen in the emergency department with similar presentation diagnosed with nephrolithiasis discharged home with pain meds. Patient had recurrence of his pain on the afternoon of his presentation. Imaging studies obtained on admission demonstrated moderate hydronephrosis of the left kidney with hydroureter from a 2.4mm UVJ stone.. Patient was also found to have impaired kidney function. Urinalysis did show pyuria with positive leukocyte esterase. Admitted to regular nursing floor for further management [facility] Medical History Crohn's colitis DM2 (diabetes mellitus, type 2) HTN (hypertension) SOFIA (obstructive sleep apnea) Home Medications cyclobenzaprine 10 mg tablet 10 mg PO BID PRN muscle spasm #10 tabs 02/15/21 [Rx Last Taken Unknown] hydrocodone-acetaminophen 5-325mg 5mg-325mg 1 tab PO Q6H PRN pain 3 days #10 tabs 02/15/21 [Rx Last Taken Unknown] ondansetron 4 mg disintegrating tablet 4 mg PO Q8H PRN PRN Nausea #10 tabs 06/04/23 [Rx Last Taken Unknown] oxycodone-acetaminophen 5 mg-325 mg tablet (Percocet) 1 tab PO Q8H PRN pain 3 days #10 tabs 06/04/23 [Rx Last Taken Unknown] Allergy/AdvReac Type Severity Reaction Status Date / Time Iodinated Contrast Media Allergy Severe Anaphylaxis Verified 06/04/23 12:42 Social History Smoking Status: Current every day smoker tobacco type: cigarettes ROS ROS Narrative GENERAL: denies fever, chills, night sweats, weight loss, anorexia HEENT: denies headache, sinus congestion, or drainage, dysphagia RESPIRATORY: denies cough, sputum production, shortness of breath, dyspnea on exertion CARDIAC: denies chest pain, palpitations, orthopnea, PND GASTROINTESTINAL: denies abdominal pain, nausea, vomiting, melena, GENITOURINARY: Left flank pain EXTREMITY: denies swelling MUSCULOSKELETAL: denies current joint pain or tenderness NEUROLOGIC: denies focal numbness, weakness, tingling HEMATOLOGIC: denies easy bruising and/or hemorrhage INTEGUMENT: denies rashes PSYCHIATRIC: denies suicidal or homicidal ideation Vital Signs Vital Signs Vital Signs: 06/06/23 14:16 06/06/23 14:16 06/06/23 15:16 Temperature 97.3 F L 98.2 F Temperature Source Temporal Oral Pulse Rate 90 79 69 Respiratory Rate 18 15 16 Blood Pressure 154/102 H 148/86 H 156/80 H Blood Pressure Mean 119 106 105 Pulse Ox 98 96 99 Oxygen Delivery Method Room Air Room Air Room Air 06/06/23 17:00 06/06/23 16:16 06/06/23 17:08 Temperature 97.7 F L 97.7 F L Temperature Source Oral Pulse Rate 88 65 88 Respiratory Rate 16 14 16 Blood Pressure 117/74 120/89 H 117/74 Blood Pressure Mean 88 99 88 Pulse Ox 99 96 96 Oxygen Delivery Method Room Air Room Air Weight Weight: 115 kg Body Mass Index (BMI) 35.3 Physical Exam Narrative GENERAL: cooperative HEENT: Atraumatic; normocephalic EYES; Anicteric, Normal Conjunctiva NECK; supple, normal thyroid, RESPIRATORY: Diminished to auscultation CARDIOVASCULAR: Regular S1 S2, GI: soft, normoactive bowel sounds, : No Renal angle tenderness; EXTREMITIES: No edema, no clubbing, MUSCULOSKELETAL: no muscle wasting NEURO: Awake; no lateralizing signs. SKIN: No Rash PSYCH; Flat affect Results Lab / Micro Data 06/06/23 14:35 06/06/23 14:35 Labs: Laboratory Results - last 24 hr 06/06/23 14:35: WBC 11.5 H, RBC 4.81, Hgb 13.9, Hct 40.8, MCV 84.8, MCH 28.9, MCHC 34.1, RDW Std Deviation 38.7, RDW Coeff of [place] 12.6, Plt Count 266, MPV 9.6, Immature Gran % (Auto) 0.300, Neut % (Auto) 69.9, Lymph % (Auto) 18.2 L, [place] % (Auto) 9.6, Eos % (Auto) 1.6, Baso % (Auto) 0.4, Absolute Neuts (auto) 8.0 H, Absolute Lymphs (auto) 2.09, Nucleated RBC % 0, Sodium 137, Potassium 3.6, Chloride 106, Carbon Dioxide 26.0, Anion Gap 5, BUN 19 H, Creatinine 2.07 H, Estim Creat Clear Calc 66.07, Est GFR (MDRD) Af Amer 48 L, Est GFR (MDRD) Non-Af 40 L, BUN/Creatinine Ratio 9.2 L, Glucose 105, Calcium 8.7 06/06/23 15:45: Urine Color Yellow, Urine Clarity Clear, Urine pH 6.5, Ur Specific [place] 1.015, Urine Protein 15 H, Urine Glucose (UA) Normal, Urine Ketones 5 H, Urine Occult Blood 150 H, Urine Nitrite Negative, Urine Bilirubin Negative, Urine Urobilinogen Normal, Ur Leukocyte Esterase 100 H, Urine RBC 5-10 SEEN, Urine WBC 5-10 SEEN, Ur Squamous Epith Cells 0 SEEN, Urine Bacteria RARE, Urine Mucus RARE Imaging Radiology Impression Abdomen/Pelvis CT 06/06/23 14:38 IMPRESSION: (NOT LISTED IN ORDER OF SIGNIFICANCE) Moderate hydronephrosis of the left kidney with hydroureter from a 2.4mm UVJ stone. Other findings as above. Electronically Signed: Ashish Rios MD at 15:52 EDT , Assessment & Plan Assessment/Plan (1) Calculus of left kidney: (2) Acute kidney injury: PLAN: Plan Patient is a 32-year-old gentleman presented with left flank pain 1. Left flank pain ? Secondary toModerate hydronephrosis of the left kidney with hydroureter from a 2.4mm UVJ stone.. Patient admitted to regular nursing floor for symptom management consult placed to Dr Gupta from the ED 2. Acute kidney injury ? Secondary to obstructive uropathy from above patient started on IV fluid with subsequent monitoring of electrolytes ordered 3. Acute cystitis ? Patient started on ceftriaxone urine culture sent 4. Class II obesity with BMI of 36 ? Complicating care weight loss advised 5. Tobacco dependence - Counseled on cessation, offered nicotine patch for tobacco cravings 6. DVT prophylaxis ? Low risk did encourage ambulation Time spent in the patient's overall evaluation,decision-making process, review of diagnostic data, adjustment of management, discussion with other providers, nursing nursing and ancillary staff involved in patient's care documentation, 55 Minutes Charges/Coding Visit Charges Inpatient E&M: 12015 Init Hosp L2
[2023-06-06] MEDS: Ceftriaxone 1 GM/50 ML BAG IV (18:34)
[2023-06-06] MEDS: 0.9% Normal Saline (1000mL) 1,000 ML 150 ML IV (18:34)
[2023-06-06] MEDS: oxyCODONE 5 MG Tablet 10 MG PO (18:52)
[2023-06-06] MEDS: Acetaminophen 500 MG Tablet 1000 MG PO (21:59)
[2023-06-06] MEDS: Famotidine 20 MG Tablet PO (21:59)
[2023-06-07 01:54] VITALS: BP 132/82; PULSE 75; RESP 18; TEMP 36.8; O2SAT 98
[2023-06-07] MEDS: 0.9% Normal Saline (1000mL) 1,000 ML 150 ML IV ×2 (01:58→08:07)
[2023-06-07 05:23] LABS: Absolute Lymphocyte Count 2.69 X10^3/uL (0.83-4.51); Absolute Neutrophil Count 5.2 X10^3/uL (2.0-7.7); Basophil# 0.08 X10^3/uL; Basophil% 0.9 % (0-1); Eosinophil# 0.35 X10^3/uL; Eosinophils% 3.8 % (0-5); Hematocrit 37.2 % (40-54); Lymphocyte # 2.69 X10^3/ul (0.83-4.51); Lymphocyte % 28.9 % (19-41); Mean Corp Hgb Conc 32.3 g/dL (32-36); Mean Corpuscular Hgb 27.8 pg (27.0-32.0); Mean Corpuscular Volume 86.1 fL (80-94); Mean Platelet Vol. 10.3 fl (6.2-12.0); Monocyte# 0.98 X10^3/uL; Monocyte% 10.5 % (0-10); NRBC Flagged by Analyzer 0 % (0-5); Neutrophil # 5.18 X10^3/uL (2.7-7.7); Neutrophil % 55.5 % (47-70); Platelet Count 260 K/mm3 (150-450); RBC Distribution Width CV 12.7 % (11.6-14.6); RBC Distribution Width SD 39.7 fl (35.1-43.9); Red Blood Count 4.32 M/mm3 (4.6-6.2); White Blood Count 9.3 K/mm3 (4.4-11.0)
[2023-06-07 05:41] LABS: Anion Gap 3 (5-15); BUN 15 mg/dL (7-18); BUN/Creat Ratio 11.5 RATIO (10-20); Calcium,Total 8.1 mg/dL (8.5-10.1); Chloride 110 mmol/L (98-107); Creatinine, Serum 1.31 mg/dL (0.70-1.30); EST Glomerular Filtration Rate 67 mL/min (>60); Est Glom Filt Rate - Afr Amer 81 mL/min (>60); Glucose 152 mg/dL (74-106); Magnesium 1.8 mg/dL (1.6-2.6); Potassium 3.5 mmol/L (3.5-5.1); Sodium Level 140 mmol/L (136-145)
[2023-06-07 06:02] LABS: Phosphorus 2.5 mg/dL (2.5-4.9)
[2023-06-07] MEDS: Acetaminophen 500 MG Tablet 1000 MG PO ×2 (06:10→13:26)
[2023-06-07 06:44] VITALS: O2SAT 97
--- NOTE | 2023-06-07 07:13 | PN.HOSP_ITS ---
Reason for Visit Reason for Visit: Diagnoses Acute kidney failure, unspecified (06/06/23) Calculus of kidney (06/06/23) Subjective Subjective Patient seen has less pain compared to previous day. Kidney function improving. Objective Data Objective Data Vital Signs: Vital Signs Temp Pulse Resp BP Pulse Ox O2 Del Method 98.3 F 75 18 132/82 H 98 Room Air 06/07/23 01:54 06/07/23 01:54 06/07/23 01:54 06/07/23 01:54 06/07/23 01:54 06/07/23 01:54 Oxygen Delivery Method Room Air Weight: 103.419 kg Body Mass Index (BMI) 31.8 Intake & Output: Intake and Output for Last 24 Hours 06/05/23 06/06/23 06/07/23 23:59 23:59 23:59 Intake Total 1050 / 1050 2000 / 2000 Output Total 1100 / 1100 Balance 1050 / 1050 900 / 900 Lab / Micro Data 06/07/23 04:35 06/07/23 04:35 Labs: Laboratory Results - last 24 hr 06/06/23 14:35: WBC 11.5 H, RBC 4.81, Hgb 13.9, Hct 40.8, MCV 84.8, MCH 28.9, MCHC 34.1, RDW Std Deviation 38.7, RDW Coeff of [place] 12.6, Plt Count 266, MPV 9.6, Immature Gran % (Auto) 0.300, Neut % (Auto) 69.9, Lymph % (Auto) 18.2 L, [place] % (Auto) 9.6, Eos % (Auto) 1.6, Baso % (Auto) 0.4, Absolute Neuts (auto) 8.0 H, Absolute Lymphs (auto) 2.09, Nucleated RBC % 0, Sodium 137, Potassium 3.6, Chloride 106, Carbon Dioxide 26.0, Anion Gap 5, BUN 19 H, Creatinine 2.07 H , Estim Creat Clear Calc 66.07, Est GFR (MDRD) Af Amer 48 L, Est GFR (MDRD) Non- Af 40 L, BUN/Creatinine Ratio 9.2 L, Glucose 105, Calcium 8.7 06/06/23 15:45: Urine Color Yellow, Urine Clarity Clear, Urine pH 6.5, Ur Specific [place] 1.015, Urine Protein 15 H, Urine Glucose (UA) Normal, Urine Ketones 5 H, Urine Occult Blood 150 H, Urine Nitrite Negative, Urine Bilirubin Negative, Urine Urobilinogen Normal, Ur Leukocyte Esterase 100 H, Urine RBC 5-10 SEEN, Urine WBC 5-10 SEEN, Ur Squamous Epith Cells 0 SEEN, Urine Bacteria RARE, Urine Mucus RARE 06/07/23 04:35: WBC 9.3, RBC 4.32 L, Hgb 12.0 L, Hct 37.2 L, MCV 86.1, MCH 27.8, MCHC 32.3 D, RDW Std Deviation 39.7, RDW Coeff of [place] 12.7, Plt Count 260, MPV 10.3, Immature Gran % (Auto) 0.400, Neut % (Auto) 55.5, Lymph % (Auto) 28.9, [place] % (Auto) 10.5 H, Eos % (Auto) 3.8, Baso % (Auto) 0.9, Absolute Neuts (auto) 5.2, Absolute Lymphs (auto) 2.69, Nucleated RBC % 0, Sodium 140, Potassium 3.5, Chloride 110 H, Carbon Dioxide 27.0, Anion Gap 3 L, BUN 15, Creatinine 1.31 H, Estim Creat Clear Calc 99.10, Est GFR (MDRD) Af Amer 81, Est GFR (MDRD) Non-Af 67, BUN/Creatinine Ratio 11.5, Glucose 152 H, Calcium 8.1 L, Phosphorus 2.5, Magnesium 1.8 Radiography Diagnostic Testing: Radiology Impression Abdomen/Pelvis CT 06/06/23 14:38 IMPRESSION: (NOT LISTED IN ORDER OF SIGNIFICANCE) Moderate hydronephrosis of the left kidney with hydroureter from a 2.4mm UVJ stone. Other findings as above. Electronically Signed: Ashish Rios MD at 15:52 EDT , Physical Exam Narrative GENERAL: cooperative HEENT: Atraumatic; normocephalic EYES; Anicteric, Normal Conjunctiva NECK; supple, normal thyroid, RESPIRATORY: Diminished to auscultation CARDIOVASCULAR: Regular S1 S2, GI: soft, normoactive bowel sounds, : No Renal angle tenderness; EXTREMITIES: No edema, no clubbing, MUSCULOSKELETAL: no muscle wasting NEURO: Awake; no lateralizing signs. SKIN: No Rash PSYCH; Flat affect Assessment & Plan Assessment/Plan (1) Calculus of left kidney: (2) Acute kidney injury: PLAN: Plan Patient is a 32-year-old gentleman presented with left flank pain 1. Left flank pain ? Secondary toModerate hydronephrosis of the left kidney with hydroureter from a 2.4mm UVJ stone.. Patient admitted to regular nursing floor for symptom management consult placed to Dr Gupta from the ED ? 06/07/[address] Gupta. Patient's pain improving. 2. Acute kidney injury ? Secondary to obstructive uropathy from above patient started on IV fluid with subsequent monitoring of electrolytes ordered ? 06/07/2023; improvement in patient kidney function. 3. Acute cystitis ? Patient started on ceftriaxone urine culture sent 4. Class II obesity with BMI of 36 ? Complicating care weight loss advised 5. Tobacco dependence - Counseled on cessation, offered nicotine patch for tobacco cravings 6. DVT prophylaxis ? Low risk did encourage ambulation Time spent in the patient's overall evaluation,decision-making process, review of diagnostic data, adjustment of management, discussion with other providers, nursing nursing and ancillary staff involved in patient's care documentation, 35 Minutes Charges/Coding Visit Charges Inpatient E&M: 36936 Subs Hosp L2
[2023-06-07] MEDS: Famotidine 20 MG Tablet PO (08:05)
--- NOTE | 2023-06-07 08:21 | PCM.CONS.U ---
HPI Consult Data Date of Consult: 06/07/23 HPI Narrative Reason for Consultation: ureteral stone HPI Narrative: VITO JEWELL, is a 32 M who presents admitted for pain control, tiny stone in distal left ureter practically almost passed, dont anticipate any intervention needed, pt will pass this stone. [facility] Medical History Crohn's colitis DM2 (diabetes mellitus, type 2) HTN (hypertension) SOFIA (obstructive sleep apnea) Home Medications cyclobenzaprine 10 mg tablet 10 mg PO BID PRN muscle spasm #10 tabs 02/15/21 [Rx Last Taken Unknown] ondansetron 4 mg disintegrating tablet 4 mg PO Q8H PRN PRN Nausea #10 tabs 06/04/23 [Rx Last Taken Unknown] oxycodone-acetaminophen 5 mg-325 mg tablet (Percocet) 1 tab PO Q8H PRN pain 3 days #10 tabs 06/04/23 [Rx Last Taken Unknown] Allergy/AdvReac Type Severity Reaction Status Date / Time Iodinated Contrast Media Allergy Severe Anaphylaxis Verified 06/04/23 12:42 Social History Smoking Status: Current every day smoker tobacco type: cigarettes Lab / Micro Data 06/07/23 04:35 06/07/23 04:35 Labs: Laboratory Results - last 24 hr 06/06/23 14:35: WBC 11.5 H, RBC 4.81, Hgb 13.9, Hct 40.8, MCV 84.8, MCH 28.9, MCHC 34.1, RDW Std Deviation 38.7, RDW Coeff of Colten 12.6, Plt Count 266, MPV 9.6, Immature Gran % (Auto) 0.300, Neut % (Auto) 69.9, Lymph % (Auto) 18.2 L, [place] % (Auto) 9.6, Eos % (Auto) 1.6, Baso % (Auto) 0.4, Absolute Neuts (auto) 8.0 H, Absolute Lymphs (auto) 2.09, Nucleated RBC % 0, Sodium 137, Potassium 3.6, Chloride 106, Carbon Dioxide 26.0, Anion Gap 5, BUN 19 H, Creatinine 2.07 H, Estim Creat Clear Calc 66.07, Est GFR (MDRD) Af Amer 48 L, Est GFR (MDRD) Non-Af 40 L, BUN/Creatinine Ratio 9.2 L, Glucose 105, Calcium 8.7 06/06/23 15:45: Urine Color Yellow, Urine Clarity Clear, Urine pH 6.5, Ur Specific [place] 1.015, Urine Protein 15 H, Urine Glucose (UA) Normal, Urine Ketones 5 H, Urine Occult Blood 150 H, Urine Nitrite Negative, Urine Bilirubin Negative, Urine Urobilinogen Normal, Ur Leukocyte Esterase 100 H, Urine RBC 5-10 SEEN, Urine WBC 5-10 SEEN, Ur Squamous Epith Cells 0 SEEN, Urine Bacteria RARE, Urine Mucus RARE 06/07/23 04:35: WBC 9.3, RBC 4.32 L, Hgb 12.0 L, Hct 37.2 L, MCV 86.1, MCH 27.8, MCHC 32.3 D, RDW Std Deviation 39.7, RDW Coeff of [place]ten 12.7, Plt Count 260, MPV 10.3, Immature Gran % (Auto) 0.400, Neut % (Auto) 55.5, Lymph % (Auto) 28.9, [place] % (Auto) 10.5 H, Eos % (Auto) 3.8, Baso % (Auto) 0.9, Absolute Neuts (auto) 5.2, Absolute Lymphs (auto) 2.69, Nucleated RBC % 0, Sodium 140, Potassium 3.5, Chloride 110 H, Carbon Dioxide 27.0, Anion Gap 3 L, BUN 15, Creatinine 1.31 H, Estim Creat Clear Calc 99.10, Est GFR (MDRD) Af Amer 81, Est GFR (MDRD) Non-Af 67, BUN/Creatinine Ratio 11.5, Glucose 152 H, Calcium 8.1 L, Phosphorus 2.5, Magnesium 1.8 Imaging Radiology Impression Abdomen/Pelvis CT 06/06/23 14:38 IMPRESSION: (NOT LISTED IN ORDER OF SIGNIFICANCE) Moderate hydronephrosis of the left kidney with hydroureter from a 2.4mm UVJ stone. Other findings as above. Electronically Signed: Ashish Rios MD at 15:52 EDT ,
[2023-06-07] MEDS: Ceftriaxone 1 GM/50 ML BAG IV (09:48)
[2023-06-07 13:24] VITALS: BP 133/92; PULSE 78; RESP 18; TEMP 36.9; O2SAT 98
--- NOTE | 2023-06-07 13:38 | NURSING ---
Pt left AMA form signed and made aware.
--- NOTE | 2023-06-07 14:03 | PCM.DC.SUM ---
Providers Date of Admission: 06/06/23 Date of Discharge: 06/07/23 Primary Care Physician: Dr. John Paul Rodriguez, DO Consultations 06/06/23 17:43 Consult: Urology Routine Consulting Provider: Bunny Gupta Reason for Consult: Nephrolithiasis EMERGENT Consult: No MD Notified: Yes Date Notified: 06/06/23 Time Notified: 17:39 Method of Notification: ED Physician Initiated Reason For Visit: ACUTE KIDNEY INJURY, LEFT FLANK PAIN Diagnosis Discharge Diagnosis (1) Calculus of left kidney: Status: Acute Code(s): N20.0 - Calculus of kidney (2) Acute kidney injury: Status: Acute Code(s): N17.9 - Acute kidney failure, unspecified Plan Patient is a 32-year-old gentleman presented with left flank pain 1. Left flank pain ? Secondary toModerate hydronephrosis of the left kidney with hydroureter from a 2.4mm UVJ stone.. Patient admitted to regular nursing floor for symptom management consult placed to Dr Gupta from the ED ? 06/07/[address] Gupta. Patient's pain improving. 2. Acute kidney injury ? Secondary to obstructive uropathy from above patient started on IV fluid with subsequent monitoring of electrolytes ordered ? 06/07/2023; improvement in patient kidney function. 3. Acute cystitis ? Patient started on ceftriaxone urine culture sent 4. Class II obesity with BMI of 36 ? Complicating care weight loss advised 5. Tobacco dependence - Counseled on cessation, offered nicotine patch for tobacco cravings 6. DVT prophylaxis ? Low risk did encourage ambulation Patient left AGAINST MEDICAL ADVICE therefore it made for patient to rescind his decision proved futile Time spent in the patient's overall evaluation,decision-making process, review of diagnostic data, adjustment of management, discussion with other providers, nursing nursing and ancillary staff involved in patient's care documentation, 35 Minutes Medications at Discharge Home Medications cyclobenzaprine 10 mg tablet 10 mg PO BID PRN muscle spasm #10 tabs 02/15/21 ondansetron 4 mg disintegrating tablet 4 mg PO Q8H PRN PRN Nausea #10 tabs 06/04/23 oxycodone-acetaminophen 5 mg-325 mg tablet (Percocet) 1 tab PO Q8H PRN pain 3 days #10 tabs 06/04/23 Weight / BMI Weight Weight: 103.419 kg Body Mass Index (BMI) 31.8 ABG / Lab / Microbiology Data 06/07/23 04:35 06/07/23 04:35 Laboratory: Laboratory Results - last 24 hr 06/06/23 14:35: WBC 11.5 H, RBC 4.81, Hgb 13.9, Hct 40.8, MCV 84.8, MCH 28.9, MCHC 34.1, RDW Std Deviation 38.7, RDW Coeff of Colten 12.6, Plt Count 266, MPV 9.6, Immature Gran % (Auto) 0.300, Neut % (Auto) 69.9, Lymph % (Auto) 18.2 L, [place] % (Auto) 9.6, Eos % (Auto) 1.6, Baso % (Auto) 0.4, Absolute Neuts (auto) 8.0 H, Absolute Lymphs (auto) 2.09, Nucleated RBC % 0, Sodium 137, Potassium 3.6, Chloride 106, Carbon Dioxide 26.0, Anion Gap 5, BUN 19 H, Creatinine 2.07 H, Estim Creat Clear Calc 66.07, Est GFR (MDRD) Af Amer 48 L, Est GFR (MDRD) Non-Af 40 L, BUN/Creatinine Ratio 9.2 L, Glucose 105, Calcium 8.7 06/06/23 15:45: Urine Color Yellow, Urine Clarity Clear, Urine pH 6.5, Ur Specific [place] 1.015, Urine Protein 15 H, Urine Glucose (UA) Normal, Urine Ketones 5 H, Urine Occult Blood 150 H, Urine Nitrite Negative, Urine Bilirubin Negative, Urine Urobilinogen Normal, Ur Leukocyte Esterase 100 H, Urine RBC 5-10 SEEN, Urine WBC 5-10 SEEN, Ur Squamous Epith Cells 0 SEEN, Urine Bacteria RARE, Urine Mucus RARE 06/07/23 04:35: WBC 9.3, RBC 4.32 L, Hgb 12.0 L, Hct 37.2 L, MCV 86.1, MCH 27.8, MCHC 32.3 D, RDW Std Deviation 39.7, RDW Coeff of [place]ten 12.7, Plt Count 260, MPV 10.3, Immature Gran % (Auto) 0.400, Neut % (Auto) 55.5, Lymph % (Auto) 28.9, [place] % (Auto) 10.5 H, Eos % (Auto) 3.8, Baso % (Auto) 0.9, Absolute Neuts (auto) 5.2, Absolute Lymphs (auto) 2.69, Nucleated RBC % 0, Sodium 140, Potassium 3.5, Chloride 110 H, Carbon Dioxide 27.0, Anion Gap 3 L, BUN 15, Creatinine 1.31 H, Estim Creat Clear Calc 99.10, Est GFR (MDRD) Af Amer 81, Est GFR (MDRD) Non-Af 67, BUN/Creatinine Ratio 11.5, Glucose 152 H, Calcium 8.1 L, Phosphorus 2.5, Magnesium 1.8 Radiography Diagnostic Testing: Radiology Impression Abdomen/Pelvis CT 06/06/23 14:38 IMPRESSION: (NOT LISTED IN ORDER OF SIGNIFICANCE) Moderate hydronephrosis of the left kidney with hydroureter from a 2.4mm UVJ stone. Other findings as above. Electronically Signed: Ashish Rios MD at 15:52 EDT Reading Location ID and State: [facility] / [place] , Service support , Meaningful Use Info Meaningful Use Diagnoses (Choose all that apply): None applicable Discharge Plan Admission Admit Date/Time: 06/06/23 17:04 Attending Provider: Alejandro Joseph Primary Care Provider: John Paul Rodriguez Consulting Providers: Bunny Gupta Discharge Orders/Prescriptions Prescriptions: No Action cyclobenzaprine 10 mg tablet 10 mg PO BID PRN (Reason: muscle spasm) Qty: 10 0RF ondansetron 4 mg tablet,disintegrating 4 mg PO Q8H PRN PRN (Reason: Nausea) Qty: 10 0RF oxycodone-acetaminophen [Percocet] 5-325 mg tablet 1 tab PO Q8H PRN (Reason: pain) 3 Days Qty: 10 0RF Referrals / Follow Up: John Paul Rodriguez DO [Primary Care Provider] - Disposition Disposition (needs filled in before D/C Order can be placed): Against Medical Advice Charges/Coding Visit Charges Inpatient E&M: 79088 Disch Hosp >30min
== END 2023-06-07 13:44 | disposition left against medical advice (07) ==
LOC: ED 14:45 → MS3 06-07 13:40
PROVIDERS: Physician Assistant; Admitting Provider Internal Medicine; Emergency Provider Emergency Medicine; PCP Student in an Organized Health Care Education/Training Program; Visit Provider Internal Medicine
DX: N13.6 Pyonephrosis (principal); K50.90 Crohn's disease, unspecified, without complications; E11.9 Type 2 diabetes mellitus without complications; E66.9 Obesity, unspecified; N17.9 Acute kidney failure, unspecified; I10 Essential (primary) hypertension; F17.210 Nicotine dependence, cigarettes, uncomplicated; Z53.29 Procedure and treatment not carried out because of patient's decision for other reasons; G47.33 Obstructive sleep apnea (adult) (pediatric); Z79.899 Other long term (current) drug therapy; Z68.31 Body mass index [BMI] 31.0-31.9, adult
CPT/HCPCS: 74176; 80048; 80053; 81001; 83690; 83735; 84100; 85025; 87086; 94668; 96361; 96365; 96366; 96374; 96375; 97802; 99221; 99252; 99282; 99284; J7030; G0378; G0463; J2405

== ENCOUNTER 2024-02-24 21:25 | Emergency (ER) | payer MEDICAID, SELFPAY ==
[2024-02-24 21:27] VITALS: BP 130/100; PULSE 115; RESP 20; TEMP 35.9; O2SAT 100
--- NOTE | 2024-02-24 21:37 | EKG12_ITS ---
Test Reason : CP Blood Pressure : */* mmHG Vent. Rate : 105 BPM Atrial Rate : 105 BPM P-R Int : 178 ms QRS Dur : 98 ms QT Int : 356 ms P-R-T Axes : 19 43 16 degrees QTcB Int : 470 ms Sinus tachycardia Otherwise normal ECG Confirmed by CON GRIFFITHS, LAURA ([id number]), supervising editor news reel YADIRA ELIZALDE ([id number]) on 02/26/2024 9:42:00 AM Referred By: TERRELL Confirmed By: LAURA ANDUJAR MD
[2024-02-24] MEDS: LORazepam 2 MG/ML Syringe 1 MG IV (22:24)
[2024-02-24] MEDS: 0.9% Normal Saline (1000mL) 1,000 ML 999 ML IV (22:25)
[2024-02-24 22:34] LABS: Anion Gap 10 (5-15); BUN 16 mg/dL (7-18); BUN/Creat Ratio 11.6 RATIO (10-20); Calcium,Total 9.5 mg/dL (8.5-10.1); Chloride 103 mmol/L (98-107); Creatinine, Serum 1.38 mg/dL (0.70-1.30); EST Glomerular Filtration Rate 63 mL/min (>60); Est Glom Filt Rate - Afr Amer 76 mL/min (>60); Glucose 108 mg/dL (74-106); Magnesium 2.3 mg/dL (1.6-2.6); Potassium 3.9 mmol/L (3.5-5.1); Sodium Level 138 mmol/L (136-145)
[2024-02-24 22:36] LABS: Absolute Lymphocyte Count 3.35 X10^3/uL (0.83-4.51); Absolute Neutrophil Count 4.4 X10^3/uL (2.0-7.7); Basophil# 0.09 X10^3/uL; Basophil% 0.9 % (0-1); Eosinophil# 0.29 X10^3/uL; Hematocrit 48.2 % (40-54); Hemoglobin 16.1 g/dL (13.0-16.5); Lymphocyte # 3.35 X10^3/ul (0.83-4.51); Lymphocyte % 34.5 % (19-41); Mean Corp Hgb Conc 33.4 g/dL (32-36); Mean Corpuscular Hgb 28.3 pg (27.0-32.0); Mean Corpuscular Volume 84.7 fL (80-94); Mean Platelet Vol. 10.4 fl (6.2-12.0); Monocyte# 1.51 X10^3/uL; Monocyte% 15.6 % (0-10); NRBC Flagged by Analyzer 0 % (0-5); Neutrophil # 4.39 X10^3/uL (2.7-7.7); Neutrophil % 45.3 % (47-70); POSITIVE DIFFERENTIAL YES; Platelet Count 378 K/mm3 (150-450); RBC Distribution Width CV 12.1 % (11.6-14.6); RBC Distribution Width SD 37.2 fl (35.1-43.9); Red Blood Count 5.69 M/mm3 (4.6-6.2); White Blood Count 9.7 K/mm3 (4.4-11.0)
[2024-02-24 23:02] LABS: Differential Indicated SCAN CRITERIA MET
--- NOTE | 2024-02-24 23:10 | EDS_ITS ---
HPI History of Present Illness Chief Complaint: General Illness Informant: patient and family Narrative Narrative: Patient is a 33-year-old male with past medical history of type 2 diabetes hypertension and previous acute kidney injury. He states he struggles with anxiety but can typically control it with just smoking a cigarette. He states that over the last few days stress between the holidays and work has been increasing and he has been feeling chest discomfort shortness of breath and paresthesias. He states this is typically what he feels when he has breakthrough anxiety. He reports that there is also been bouts of nausea vomiting and diarrhea and that children at home have been sick with similar symptoms. He states that he cannot get his anxiety under control and when this occurs he typically needs to come to the hospital for further medication and therefore presents at this time [facility] Medical History SOFIA (obstructive sleep apnea) Crohn's colitis DM2 (diabetes mellitus, type 2) HTN (hypertension) Home Medications ?Medication ?Instructions ?Recorded ?Last Taken ?Type lorazepam 1 mg tablet (Ativan) 1 mg PO TID PRN anxiety 5 days #15 02/24/24 Unknown Rx tabs Allergy/AdvReac Type Severity Reaction Status Date / Time Iodinated Contrast Media Allergy Severe Anaphylaxis Verified 06/04/23 12:42 Social History Smoking Status: Current every day smoker tobacco type: cigarettes ROS ROS ED Constitutional Constitutional ED: Denies chills or fever(s) Eyes Eyes: Denies change in vision ENT ENT ED: Denies sore throat Cardiovascular Cardiovascular: Reports chest pain Respiratory/Chest Respiratory/Chest: Denies cough or dyspnea Gastrointestinal Gastrointestinal: Reports diarrhea, nausea and vomiting; Denies abdominal pain Genitourinary Genitourinary ED: Denies dysuria Musculoskeletal Musculoskeletal: Denies myalgias Integumentary Denies rash Neurologic Neurologic: Reports paresthesias and weakness; Denies headache(s) Psychiatric Psychiatric: Reports anxiety; Denies suicidal ideation or suicidal thoughts Hematologic/Lymphatic Hematologic/Lymphatic: Denies easy bleeding or easy bruising EXAM Physical Exam Const Vital Signs: 02/24/24 21:27 02/24/24 21:30 Temperature 96.6 F L Temperature Source Temporal Pulse Rate 115 H Respiratory Rate 20 H Respiratory Pattern Tachypnea Blood Pressure 130/100 H Blood Pressure Mean 110 Pulse Ox 100 Oxygen Delivery Method Room Air Positive well nourished, well developed and obese General Appearance ED: well developed; Negative for pallor Nutritional Appearance: obese HEENT Reports dry mucous membranes HEENT Narrative: Mucous membranes are dry and tacky No tongue or lip swelling no oral lesions no airway edema or compromise No secondary findings in the posterior pharynx to suggest infection Mouth ED: Yes dry mucous membranes Mouth: dry mucous membranes Eyes PERRL and EOMs intact bilaterally General Eye ED: Negative for scleral icterus Neck supple Neck Narrative: No nuchal rigidity or meningeal signs noted Chest Wall palpation of chest normal Resp normal respiratory effort and clear to auscultation bilaterally Cardio regular rhythm Rate: tachycardic and other Other Details: Tachycardic rate with regular rhythm No murmurs rubs or gallops Radial and carotid pulses are equal and symmetric GI non-tender, non-distended and no masses GI Narrative: Abdomen is soft nontender and nondistended with hyperactive bowel sounds. No voluntary guarding or rigidity or pulsatile mass Auscultation: hyperactive bowel sounds Palpation: soft Extremity normal to inspection Extremity Narrative: No asymmetric edema no pitting edema negative Homans' sign bilaterally Neuro oriented x3, CN's II-XII intact bilaterally and no sensory deficits noted Neuro Narrative: GCS of 15 Cranial nerves II through XII are grossly intact no focal neurologic deficit No pronator drift no dysmetria no truncal ataxia NIH stroke scale score of 0 Sensorium / Orientation: alert Motor Exam: strength 5/5 throughout Psych Mood & Affect: anxious Skin no rashes or lesions noted and No skin turgor normal Skin Narrative: Skin turgor is slightly increased General Skin Exam: Negative for jaundice or pallor MDM MDM MDM Narrative Medical decision making narrative: Patient presented to the ER hypertensive and tachycardic. He reported he thought he was is having breakthrough anxiety but with his history of hypertension and diabetes there is concern that he has acute coronary syndrome versus a cardiac dysrhythmia. With his report of bouts of vomiting and diarrhea there is also concern that he may have acute kidney injury or electrolyte abnormalities such as hypokalemia or hypomagnesemia. An EKG was obtained which showed just sinus tachycardia without ischemic or dysrhythmic changes. Blood work revealed no signs of MAIA or clinically significant electrolyte abnormality. Patient was given 1 L of IV fluid as well as 1 mg of IV Ativan. On reevaluation his blood pressure is now normal his heart rate is approximately 85 and he reports feeling better at this time. Therefore his workup is nonfocal vitals have stabilized/improved and patient feels better this is most likely breakthrough anxiety and patient is otherwise safe for discharge History & Record Review Discussion w/independent historian: Patient and Family Lab Data Attestation: I reviewed the patient's lab results. Labs: Laboratory Results - last 24 hr 02/24/24 21:28 WBC 9.7 RBC 5.69 Hgb 16.1 Hct 48.2 MCV 84.7 MCH 28.3 MCHC 33.4 RDW Std Deviation 37.2 RDW Coeff of [place] 12.1 Plt Count 378 MPV 10.4 Immature Gran % (Auto) 0.700 Neut % (Auto) 45.3 L Lymph % (Auto) 34.5 [place] % (Auto) 15.6 H Eos % (Auto) 3.0 Baso % (Auto) 0.9 Absolute Neuts (auto) 4.4 Absolute Lymphs (auto) 3.35 Nucleated RBC % 0 Sodium 138 Potassium 3.9 Chloride 103 Carbon Dioxide 26.0 Anion Gap 10 BUN 16 Creatinine 1.38 H Est GFR (MDRD) Af Amer 76 Est GFR (MDRD) Non-Af 63 BUN/Creatinine Ratio 11.6 Glucose 108 H Calcium 9.5 Magnesium 2.3 Discharge Plan Triage Chief Complaint: General Illness ED Provider: Hubert Wyatt Dx/Rx/DC Orders Clinical Impression: Dehydration, Anxiety reaction, Hypertension, DM2 (diabetes mellitus, type 2), Tobacco dependence Instructions: Your Body's Response to Anxiety, Dehydration Prescriptions: New lorazepam [Ativan] 1 mg tablet 1 mg PO TID PRN (Reason: anxiety) 5 Days Qty: 15 0RF Primary Care Provider: Care Physician,No Primary Referrals: Trent Christiansen MD [Med Staff - Active Staff] - Care Physician,No Primary [Primary Care Provider] - Print Language: Finnish Disposition Disposition: Home, Self Care
[2024-02-24 23:27] VITALS: BP 120/83; PULSE 81; RESP 24; TEMP 36.6; O2SAT 99
[2024-02-25 00:22] LABS: Differential Comment SCANNED
== END 2024-02-24 23:28 | disposition home or self-care (01) ==
PROVIDERS: Emergency Provider Emergency Medicine; Visit Provider Emergency Medicine
DX: R07.89 Other chest pain (principal); E11.9 Type 2 diabetes mellitus without complications; I10 Essential (primary) hypertension; F17.210 Nicotine dependence, cigarettes, uncomplicated; F41.1 Generalized anxiety disorder; E86.0 Dehydration; R06.02 Shortness of breath; R20.2 Paresthesia of skin
CPT/HCPCS: 80048; 83735; 85025; 93005; 96361; 96374; 99284

== ENCOUNTER → 2024-11-23 | Outpatient (CLI) | payer MEDICAID, SELFPAY ==
--- NOTE | 2024-11-23 10:25 | RAD_ITS ---
PROCEDURE: ORBITS FOR FOREIGN BODY 11/23/2024 REASON FOR EXAM: MRI CLEARANCE TECHNIQUE: Procedure Code: RADORBFB2. Modality: DX Procedure: ORBITS FOR FOREIGN BODY COMPARISON: None FINDINGS: No radiopaque foreign body is seen. RAD/Orbits for Foreign Body IMPRESSION: No radiopaque foreign body is seen. Reading Location: [place] [id number]
--- NOTE | 2024-11-23 10:25 | RAD_ITS ---
PROCEDURE: ORBITS FOR FOREIGN BODY 11/23/2024 REASON FOR EXAM: MRI CLEARANCE TECHNIQUE: Procedure Code: RADORBFB2. Modality: DX Procedure: ORBITS FOR FOREIGN BODY COMPARISON: None FINDINGS: No radiopaque foreign body is seen. RAD/Orbits for Foreign Body IMPRESSION: No radiopaque foreign body is seen. Reading Location: [place] [id number]
--- NOTE | 2024-11-23 17:20 | MRI_ITS ---
PROCEDURE: SPINE LUMBAR (ROUTINE) 11/23/2024 REASON FOR EXAM: PAIN, HEMIVERTEBRA, KYPHOSIS TECHNIQUE: Procedure Code: MRISPL Modality: MR Procedure: SPINE LUMBAR (ROUTINE) COMPARISON: Lumbar spine series 09/20/2024. FINDINGS: Vertebrae: Again seen is marked hypoplasia/ti vertebra appearance of the T12 vertebral body, with associated focal kyphosis and prominent osteophytes of the opposing anterior T11 and L1 vertebral bodies. Also, dextroscoliosis about the T12 level is seen. No acute osseous signal changes are seen. Alignment: No subluxation is seen. No evidence of spondylolysis. Conus Medullaris: The conus medullaris shows a normal appearance, with termination at the L1 level. T12-L1: Mild disc bulge noted. Focal dextroscoliosis. A very mild disc bulge is seen. No significant spinal canal stenosis or neural foraminal narrowing is seen. L1-2: No significant spinal canal stenosis or neural foraminal narrowing is seen. L2-3: Mild posterior facet and ligamentum flavum hypertrophy is noted. No significant spinal canal stenosis or neural foraminal narrowing is seen. L3-4: Mild posterior facet and ligamentum flavum hypertrophy is seen. No significant spinal canal stenosis or neural foraminal narrowing is seen. L4-5: Mild posterior facet and ligamentum flavum hypertrophy is seen. No significant spinal canal stenosis or neural foraminal narrowing is seen. L5-S1: No significant spinal canal stenosis or neural foraminal narrowing is seen. Sacrum: Limited imaging without significant abnormality identified. MRI/Spine Lumbar (Routine) IMPRESSION: 1. Stable osseous alignment seen, again with hypoplasia/ti vertebra of the T1 2 vertebral body seen, with focal dextroscoliosis focal kyphosis present. 2. No significant spinal canal stenosis or neural foraminal narrowing is noted. 3. Additional findings as noted. Reading Location: [id number]
== END | disposition home or self-care (01) ==
LOC: MRI 17:00
PROVIDERS: PCP Student in an Organized Health Care Education/Training Program; Referring Provider Student in an Organized Health Care Education/Training Program; Visit Provider Student in an Organized Health Care Education/Training Program
DX: M54.50 Low back pain, unspecified (principal); Q76.49 Other congenital malformations of spine, not associated with scoliosis; M40.209 Unspecified kyphosis, site unspecified
CPT/HCPCS: 70030; 72148

== ENCOUNTER 2024-11-27 22:13 | Emergency (ER) | payer MEDICAID, SELFPAY ==
--- OUTSIDE RECORDS SUMMARY | 2024-09-25 07:59 | XMS RPT_ITS ---
Author Name Auto Generated Organization OHIP Care Team Providers Care Public Health Nutritionist Name Role Phone LAURATCHJOANNE DO, REGINALD M Attending Unavailable DITCHEY DO, REGINALD M Primary Care Unavailable DITCHEY DO, REGINALD M Attending Unavailable DITCHEY DO, REGINALD M Primary Care Unavailable DITCHEY DO, REGINALD M Attending Unavailable DITCHEY DO, REGINALD M Primary Care Unavailable DITCHEY DO, REGINALD M Attending Unavailable DITCHEY DO, REGINALD M Primary Care Unavailable DITCHEY DO, REGINALD M Primary Care Unavailable FLORENTIN PARKER Attending Unavailable MACHELLE ASHBY Primary Care Unavailable PROBLEMS No Problem Records Found PROCEDURES No Procedure Records Found RESULTS XR SPINE LUMBAR W/OBLIQUES 4 VIEWS Observed: 08/30/2024 4:30 PM Status: F Source: [facility] ORIGINAL EXAMINATION: 5 there are 5 lumbar vertebrae. XRAY VIEWS OF THE LUMBAR SPINE 08/30/2024 5:02 pm COMPARISON: None. 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 This is associated with mild dextroconvex curvature at the thoracolumbar junction region. There is also moderately severe degenerative disc disease at T12-L1 and at the articulations of this hemivertebrae at the T12-L1 level. There is no subluxation. No destructive lesions are present. Facet joints are maintained with no defect of pars interarticularis. Sacroiliac joints are normal. IMPRESSION: 1. 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 2. No acute findings. Interpreted by: Benedict Yin MD Preliminary Report By: Benedict Yin MD Electronically signed By Benedict Yin MD Dictated Date: 08/31/2024 5:50:14 AM Prelim Date: 08/31/2024 5:54:17 AM Sign Date: 08/31/2024 5:54:17 AM Ordering Provider: REGINALD HERNANDEZ Interpreted by: Benedict Yin MD Preliminary Report By: Benedict Yin MD Electronically signed By Benedict Yin MD Dictated Date: 08/31/2024 5:50:14 AM Prelim Date: 08/31/2024 5:54:17 AM Sign Date: 08/31/2024 5:54:17 AM Ordering Provider: REGINALD COLON MYOCARDIAL SPECT STRESS/REST Observed: 07/27/2024 9:30 AM Status: F Source: [facility] ORIGINAL EXAMINATION: CARDIAC SPECT07/27/2024 10:13 am TECHNIQUE: The patient received an intravenous injection of 7.7 mCi of Tc-99m Sestamibi and resting emission tomographic (SPECT) images of the myocardium were acquired. The patient then underwent treadmill stress exercising to 91 % of MPHR and achieving 9 METS. At peak stress an additional injection of 25.6 mCi of Tc-99m Sestamibi was administered and stress phase SPECT images of the myocardium were then acquired. This acquisition included ECG-gated images to assess and quantify ventricular function. Low dose CT was acquired for attenuation correction. COMPARISON: None HISTORY: ORDERING SYSTEM PROVIDED HISTORY: Reason for Exam: chest pain FINDINGS: Both stress and rest studies demonstrate grossly normal perfusion throughout the left ventricle. The left ventricle is normal in size. Normal TID value. Gated post-stress images demonstrate normal LV wall motion with an LV EF estimated at greater than 65%. Low dose CT demonstrates no gross anatomic abnormalities. IMPRESSION: 1. No evidence of ischemia or prior infarction. 2. The left ventricle is normal in size. 3. Normal LV wall motion with an LV EF estimated at greater than 65%. Interpreted by: Alejandro Carias DO Preliminary Report By: Shawn Montana MD Electronically signed By Alejandro Carias DO Dictated Date: 07/27/2024 10:17:49 AM Prelim Date: 07/27/2024 11:46:41 AM Sign Date: 07/27/2024 11:46:41 AM Ordering Provider: REGINALD HERNANDEZ CBC Collected: 4:02 PM Status: F Source: [facility] TYPE CODE TESTS RESULT OUT OF RANGE REFERENCE UNITS LAB WBC(LOINC) WBC 10.4 4.5-10.8 10 3/mcL LAB RBCCT(LOINC) RBC 5.21 4.50-6.00 10 6/mcL LAB HGB(LOINC) Hgb 15.3 13.0-17.5 G/dL LAB HCT(LOINC) Hct 44.4 40.0-52.0 % LAB MCV(LOINC) MCV 85.1 81.0-100.0 fL LAB MCH(LOINC) MCH 29.3 27.0-33.0 pg LAB MCHC(LOINC) MCHC 34.5 32.0-36.0 G/dL LAB RDW(LOINC) RDW 13.4 11.5-15.5 % LAB PLT(LOINC) Platelet 348 150-450 10 3/mcL LAB MPV(LOINC) MPV 8.3 6.4-10.5 fL Performed By: #### LIPID, CB C, ADIFF, ANEU, A1C, CMP, TSHR, GFR #### [address] [address] .AUTO DIFF Collected: 07/07/2024 4:02 PM Status: F Source: [facility] TYPE CODE TESTS RESULT OUT OF RANGE REFERENCE UNITS LAB GT(LOINC) Neutrophil % 52.3 50.0-75.0 % LAB LYM(LOINC) Lymphocyte % 31.0 20.0-40.0 % LAB MON(LOINC) Monocyte % 11.8 2.0-13.0 % LAB EO(LOINC) Eosinophil % 3.6 0.0-6.0 % LAB BAS(LOINC) Basophil % 1.3 0.0-2.5 % LAB ABLYM(LOINC) Lymphocyte, Absolute 3.2 0.9-4.3 10 3/mcL LAB MICHAEL(LOINC) Monocyte, Absolute 1.2 0.1-1.4 10 3/mcL LAB AEOS(LOINC) Eosinophil, Absolute 0.4 0.0-0.7 10 3/mcL LAB ABAS(LOINC) Basophil, Absolute 0.1 0.0-0.3 10 3/mcL Performed By: #### LIPID, CB C, ADIFF, ANEU, A1C, CMP, TSHR, GFR #### [address] [address] .NEUABS Collected: 4:02 PM Status: F Source: [facility] TYPE CODE TESTS RESULT OUT OF RANGE REFERENCE UNITS LAB ANEU(LOINC) Neutrophil, Absolute 5.4 2.3-8.1 10 3/mcL Performed By: #### LIPID, CB C, ADIFF, ANEU, A1C, CMP, TSHR, GFR #### [address] [address] A1C Collected: 4:02 PM Status: F Source: [facility] TYPE CODE TESTS RESULT OUT OF RANGE REFERENCE UNITS LAB A1C(LOINC) Hgb A1c 5.8 4.3-6.4 % LAB eAG(LOINC) Est Avg Glucose 120 mg/dL Result Comment: Estimated Av erage Glucose calculated by equation ((28.7xA1C)- 46.7) Estimated average glucose (eAG) is a calculated value from Hemoglobin A1C and is sales representative [employer] of the average blood glucose level in the last 2-3 month period. Normal range: less than 114 mg/dL Performed By: #### LIPID, CB C, ADIFF, ANEU, A1C, CMP, TSHR, GFR #### [address] [address] CMP Collected: 07/07/2024 4:02 PM Status: F Source: [facility] TYPE CODE TESTS RESULT OUT OF RANGE REFERENCE UNITS LAB GLU(LOINC) Glucose Level 88 70-105 mg/dL LAB NA(LOINC) Sodium Level 139 136-145 mmol/L LAB K(LOINC) Potassium Level 4.0 3.5-5.1 mmol/L LAB CL(LOINC) Chloride 103 98-107 mmol/L LAB CO2(LOINC) CO2 30 High 22-29 mmol/L LAB EBAL(LOINC) Electrolyte Balance 6.0 4.0-15.0 mEq/L LAB BUN(LOINC) BUN 17 7-18 mg/dL LAB CRE(LOINC) Creatinine Lvl (s) 1.13 0.67-1.17 mg/dL LAB BC(LOINC) BUN/Creatinine Ratio 15 7-27 ratio LAB CA(LOINC) Calcium Lvl 10.2 8.4-10.2 mg/dL LAB PROT(LOINC) Total Protein 7.6 6.4-8.2 G/dL LAB ALB(LOINC) Albumin Level 4.2 3.5-5.0 G/dL LAB GLB(LOINC) Globulin 3.4 2.7-4.4 G/dL LAB AG(LOINC) A/G Ratio 1.2 1.1-2.5 ratio LAB BILT(LOINC) Bili Total 0.4 0.2-1.0 mg/dL Result Comment: Use of this assay is not recommended for patients undergoing treatment with eltrombopag due to the potential for falsely elevated results. LAB AP(LOINC) Alk Phos 106 40-135 U/L LAB AST(LOINC) AST/SGOT 25 10-40 U/L LAB ALT(LOINC) ALT/SGPT 60 16-63 U/L Performed By: #### LIPID, CB C, ADIFF, ANEU, A1C, CMP, TSHR, GFR #### [address] [address] TSHR Collected: 4:02 PM Status: F Source: [facility] TYPE CODE TESTS RESULT OUT OF RANGE REFERENCE UNITS LAB TSH([facility]) TSH 2.53 0.36-3.74 mcIU/mL Performed By: #### LIPID, CB C, ADIFF, ANEU, A1C, CMP, TSHR, GFR #### [address] [address] .GFR Collected: 07/07/2024 4:02 PM Status: F Source: [facility] TYPE CODE TESTS RESULT OUT OF RANGE REFERENCE UNITS LAB eGFR(LOINC) Estimated Glomerular Filtration Rate 88 ml/min/1. 73sqm Result Comment: Stages of Chronic Kidney Disease (CKD) Stage Description eGFR(ml/min/1.73 sq.m.) CKD 1 Normal kidney function or >=90 normal kindney function with possible kidney damage (ex. Proteinuria) CKD 2 Kidney damage with mild loss 60-89 of kidney function CKD 3a Mild to moderate loss of kidney 45-59 function CKD 3b Moderate to severe loss of 30-44 of kindey function CKD 4 Severe loss of kidney function 15-29 CKD 5 Kidney failure <15 Note: (go live 2024) the eGFR calculation was updated to the 2020 CKD-EPI creatinine equation without a race factor to calculate the eGFR results. Performed By: #### LIPID, CB C, ADIFF, ANEU, A1C, CMP, TSHR, GFR #### [id number] [place], [place] [address] LIPID Collected: 07/07/2024 4:02 PM Status: F Source: [facility] TYPE CODE TESTS RESULT OUT OF RANGE REFERENCE UNITS LAB CHOL(LOINC) Cholesterol 252 High 0-200 mg/dL Result Comment: Cholesterol Reference Interval: Less than 200 Desirable 200-239 Borderline high risk 240 and above High risk LAB TRIG(LOINC) Triglycerides 349 High 0-150 mg/dL Result Comment: Triglyceride Reference Interval: Less than 150 Normal 150-199 Borderline high risk 200-499 High risk 500 or higher Very high risk LAB HD(LOINC) HDL Cholesterol 41 40-60 mg/dL LAB LDL(LOINC) LDL Cholesterol 141 High 0-130 mg/dL Performed By: #### LIPID, CB C, ADIFF, ANEU, A1C, CMP, TSHR, GFR #### [id number] [place], [place] [address] PROGRESS Observed: 01/02/2024 1:54 PM Status: COMPLETED Source: [facility] ID: [id number] Author: ROHAN SAWYER MD Service: ? Author Type: Physician Type: Progress Notes Filed: 01/02/2024 14:32 Note Text: Patient presents with: Ear Problem: Bilateral ear pain and ripped nail off right middle finger x 2 day HPI: Ear pain: Duration: 2 days. He thinks he got grease in the ear and maybe debris while working on a vehicle. Location: bilateral ears Character: intermittent alternating pain and stuffiness Radiation: some down the neck Treatment: flushed ears with water Associated: sore throat and reflux (not acute) Pertinent negatives: Denies cough, nasal congestion, rhinorrhea, sinus pressure, fever He also ripped off his right middle finger between a spinning rotor and caliper 2 days ago. He has been bandaging the finger and applying neosporin. MEDICATIONS: No prescriptions on file. ALLERGIES: ALLERGIES Allergen Reactions Beef Derived (Bovin* Iodine Rash Pork VITALS: BP 120/82 Pulse 95 Temp 36.8 ?C (98.2 ?F) (Tympanic) Resp 16 Wt 108.5 kg (239 lb 3.2 oz) SpO2 98% BMI 37.00 kg/m? PE: Gen: No acute distress, alert Eyes: PERRL, EOMI, sclera clear Ears: Canals clear. TMs with erythema, bulge, and purulent effusion Sinuses: non-tender frontal, non-tender maxillary Mouth/throat: MMM, beefy pharyngeal erythema without exudate Neck: Supple, no thyromegaly, nontender, no lymphadenopathy Heart: regular rate and rhythm, no murmurs Lungs: clear to auscultation Finger: right middle. Absent nail with moist red nailbed and small laceration near the corner of the proximal nail fold. Small blister on the distal pad. No significant erythema or edema. Normal IP range of motion. ASSESSMENT/PLAN: 1. Non-recurrent acute suppurative otitis media of both ears without spontaneous rupture of tympanic membranes - ICD9: 382.00, ICD10: H66.003 (primary diagnosis) - Will begin treatment with - AMOXICILLIN 875 MG TABLET 2. Avulsion of fingernail of right hand - ICD9: 883.0, ICD10: S61.309A - BACITRACIN 500 UNIT/GRAM TOPICAL OINTMENT Dressed with adhesive bandages, bacitracin, and alluminum foam splint. Follow up immediately with signs of infection such as increasing redness, pain, swelling, purulent drainage, or fever/malaise. Rohan Sawyer MD CNOV Observed: 01/02/2024 1:45 PM Status: COMPLETED Source: [facility] Office Visit (UCWSTR) VITO JEWELL ([id number]) 1990 [address] [facility]* Date Time Provider Department 01/02/24 1:45 PM [facility] During your visit today, we recorded the following information about you: Temperature Pulse Respiration Blood pressure 98.2 degrees 95/minute 16/minute 120/82 Weight 108.5 kg Rohan Sawyer MD 01/02/2024 2:32 PM Signed Patient presents with: Ear Problem: Bilateral ear pain and ripped nail off right middle finger x 2 day HPI: Ear pain: Duration: 2 days. He thinks he got grease in the ear and maybe debris while working on a vehicle. Location: bilateral ears Character: intermittent alternating pain and stuffiness Radiation: some down the neck Treatment: flushed ears with water Associated: sore throat and reflux (not acute) Pertinent negatives: Denies cough, nasal congestion, rhinorrhea, sinus pressure, fever He also ripped off his right middle finger between a spinning rotor and caliper 2 days ago. He has been bandaging the finger and applying neosporin. MEDICATIONS: No prescriptions on file. ALLERGIES: ALLERGIES Allergen Reactions Beef Derived (Bovin* Iodine Rash Pork VITALS: BP 120/82 Pulse 95 Temp 36.8 ?C (98.2 ?F) (Tympanic) Resp 16 Wt 108.5 kg (239 lb 3.2 oz) SpO2 98% BMI 37.00 kg/m? PE: Gen: No acute distress, alert Eyes: PERRL, EOMI, sclera clear Ears: Canals clear. TMs with erythema, bulge, and purulent effusion Sinuses: non-tender frontal, non-tender maxillary Mouth/throat: MMM, beefy pharyngeal erythema without exudate Neck: Supple, no thyromegaly, nontender, no lymphadenopathy Heart: regular rate and rhythm, no murmurs Lungs: clear to auscultation Finger: right middle. Absent nail with moist red nailbed and small laceration near the corner of the proximal nail fold. Small blister on the distal pad. No significant erythema or edema. Normal IP range of motion. ASSESSMENT/PLAN: 1. Non-recurrent acute suppurative otitis media of both ears without spontaneous rupture of tympanic membranes - ICD9: 382.00, ICD10: H66.003 (primary diagnosis) - Will begin treatment with - AMOXICILLIN 875 MG TABLET 2. Avulsion of fingernail of right hand - ICD9: 883.0, ICD10: S61.309A - BACITRACIN 500 UNIT/GRAM TOPICAL OINTMENT Dressed with adhesive bandages, bacitracin, and alluminum foam splint. Follow up immediately with signs of infection such as increasing redness, pain, swelling, purulent drainage, or fever/malaise. Rohan Sawyer MD Allergies As of Date: 01/02/2024 Noted Allergy Reaction BEEF DERIVED (BOVINE) 12/09/2004 IODINE 08/20/2015 2 - Rash PORK 12/09/2004 Date Reviewed: 07/18/2020 Reviewed by: Mell Obregon ([facility]) - Fully Assessed Reason for Visit: Ear Problem [38] Cmt: Bilateral ear pain and ripped nail off right middle finger x 2 day Primary Visit Diagnosis:Non-recurrent acute suppurative otitis media of both ears without spontaneous rupture of tympanic membranes [H66.003] Other Visit Diagnosis:Avulsion of fingernail of right hand [S61.309A] Order(s):amoxicillin (AMOXIL) 875 mg tabletTake 1 tablet by mouth two times a day for 7 days.Disp: 14 tabletRfl: 0 bacitracin 500 unit/gram ointmentApply to affected area two times a day for 14 days.Disp: 28 gRfl: 1 Prescriptions as of 01/02/2024 - amoxicillin (AMOXIL) 875 mg tablet Take 1 tablet by mouth two times a day for 7 days. - bacitracin 500 unit/gram ointment Apply to affected area two times a day for 14 days. Meds Comments as of 07/17/2016: Currently on Prednisone taper pack from [facility]. 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, *08/23/2015 Campylobacter diarrhea [A04.5] 08/23/2015 Precordial pain [R07.2] 10/25/2015 Chronic low back pain [M54.50, G89.29] 10/25/2015 Chronic midline low back pain with left-sided s*07/25/2016 Essential hypertension [I10] 12/09/2017 SOFIA (obstructive sleep apnea) [G47.33] 12/09/2017 Obesity due to excess calories without serious *12/09/2017 Asthma [J45.909] 11/11/2019 Type 2 diabetes mellitus, without long-term cur*11/11/2019 Anxiety and depression [F41.9, F32.A] 11/11/2019 Prescriptions ordered this encounter Disp Refills Start End AMOXICILLIN 875 MG TABLET 14 t* 0 01/02/2024 01/09/2024 Route: ORAL Sig: Take 1 tablet by mouth two times a day for 7 days. BACITRACIN 500 UNIT/GRAM TOPICAL OIN* 28 g 1 01/02/2024 01/16/2024 Route: TOPICAL Sig: Apply to affected area two times a day for 14 days. Medications Discontinued During This Encounter Prescriptions - ACETAMINOPHEN (TYLENOL ORAL) (Discontinued) Reported on 01/02/2024 - albuterol HFA (VENTOLIN HFA) 90 mcg/actuation inhaler (Discontinued) Reported on 01/02/2024 - cholecalciferol, Vitamin D3, (VITAMIN D3) 1,250 mcg (50,000 unit) cap capsule (Discontinued) Reported on 01/02/2024 - busPIRone (BUSPAR) 5 mg tablet (Discontinued) Reported on 01/02/2024 - pantoprazole DR (PROTONIX) 40 mg tablet (Discontinued) Reported on 01/02/2024 - famotidine (PEPCID) 20 mg tablet (Discontinued) Reported on 01/02/2024 - buPROPion XL (WELLBUTRIN XL) 150 mg 24 hr tablet (Discontinued) Reported on 01/02/2024 Level of Service: OFFICE/OUTPATIENT [facility] 30 MINUTES [19322] Encounter Status:Closed by ROHAN SAWYER on 01/02/24 ALLERGIES DATE TYPE / CODE NAME / CODE REACTION SEVERITY SOURCE 08/20/2015 DRUG INGREDI/59849300 3(SNOMED CT) IODINE RASH [facility] 12/09/2004 DRUG INGREDI/02588917 3(SNOMED CT) BEEF DERIVED (BOVINE) [facility] 12/09/2004 Food/216702416(S NOMED CT) PORK [facility] ENCOUNTERS ADMIT/DISCHARGE ACCOUNT NUMBER ADMITTING ENCOUNTER CLASS LOCATION SOURCE 09/25/2024 [id number] Ambulatory ABuilding:X RA Y [facility] 08/30/2024/ 5 [id number] [place] [facility] 07/27/2024/ 5 [id number] Ambulatory ABuilding:HLA B [facility] 07/26/2024/ 5 [id number] Ambulatory [facility]Building:[facility] 07/07/2024/ 5 [id number] [place] [facility] 01/02/2024/ 4 [id number] [facility] PAYERS ENCOUNTER GUARANTOR PAYER SUBSCRIBER SOURCE 09/25/2024 VITO [place]: [place] [address]~[email or web address]: () Primary Insurance:[facility] [place] Number: [id number] Date:0476-21-21Rmwr Name:XPO [address], [place] [address]HU: VITO L[place]: [id number] [place] [address]Mtu: (WP) [facility] 08/30/2024 VITO [place]: [place] [address]~[email or web address]: () Primary Insurance:[employer] IN[employer] Number: [id number] Date:2587-80-34Ifgw Name:[place] [address]HJ: VITO Eugene TURNERDOB: [id number] [address] [place] [address]Kos: () [facility] 07/27/2024 VITO Jabier TURNERDOB: [facility] [place] [address]~[email or web address]: () Primary Insurance:[employer] INSC[employer]icy Number: [id number] Date:8561-39-35Rpeq Name:SUNDAR CORDOBA [address] [place] [address]DY: VITO Eugene TURNERDOB: [id number] [address] [place] [address]Cub: () [facility] 07/26/2024 VITO Jabier TURNERDOB: [facility] [place] [address]~[email or web address]: () Primary Insurance:[employer] Number: [id number] Date:5472-88-82Xsre Name:[place] [address]NG: VITO Eugene TURNERDOB: [id number] [place] [address]Kkc: () [facility] 07/07/2024 VITO D TURNERDOB: [facility] [place] [address]~[email or web address]: (HP) Primary Insurance:[facility] Hospital[facility] Number: [id number] Date:7099-32-80Crzo Name:SUNDAR CORDOBA [address], [place] [address]GV: VITO L[place]IS: [id number] [place] [address]Zxk: () [facility] 01/02/2024 Primary Insurance:[employer] MEDICAIDPolicy Number: [id number] Date:1827-79-47Qsti Name:Sridevi L[place]: [id number] [place] [address] [facility]
[2024-11-27 22:13] VITALS: BP 155/121; PULSE 116; RESP 22; TEMP 36.8; O2SAT 100; BMI 34.2
--- NOTE | 2024-11-27 22:31 | EKG12_ITS ---
Test Reason : CP Blood Pressure : */* mmHG Vent. Rate : 119 BPM Atrial Rate : 119 BPM P-R Int : 178 ms QRS Dur : 96 ms QT Int : 316 ms P-R-T Axes : 26 11 23 degrees QTcB Int : 444 ms Sinus tachycardia Otherwise normal ECG Confirmed by CON GRIFFITHS, LAURA ([id number]), features editor YADIRA ELIZALDE ([id number]) on 11/29/2024 8:01:36 AM Referred By: Confirmed By: LAURA ANDUJAR MD
--- NOTE | 2024-11-27 22:31 | CT_ITS ---
PROCEDURE: STROKE BRAIN/HEAD WITHOUT CONT 11/27/2024 REASON FOR EXAM: Stroke suspected. Clinical history of slurred speech and facial droop. TECHNIQUE: Procedure Code: CTBR.ST Modality: CT Procedure: STROKE BRAIN/HEAD WITHOUT CONT Coronal and Sagittal reconstruction series were provided. One or more dose reduction techniques were used (e.g., Automated exposure control, adjustment of the mA and/or kV according to patient size, use of iterative reconstruction technique. RADIATION DOSE SUMMARY: DLP: 981.71 mGycm COMPARISON: CT head 04/05/2020 FINDINGS: No acute hemorrhage. No acute infarct. No significant mass effect or brain herniation. The ventricular system and sulci/fissures are within normal limits of size and configuration for the patient's stated age. No extra-axial fluid collection. The basal cisterns are patent. The mastoid air cells are clear. Polypoid mucosal thickening in the right maxillary sinus. Scattered paranasal mucosal thickening. The calvarium appears intact. CT/STROKE Brain/Head without Cont IMPRESSION: No CT evidence of acute intracranial hemorrhage, infarct, or significant mass e ffect. Reading Location: [id number]
--- NOTE | 2024-11-27 22:35 | ED.VIS.CHEST ---
HPI History of Present Illness Chief Complaint: Chest Pain Narrative Narrative: Patient is a 34-year-old male with past medical history of hypertension, type 2 diabetes, SOFIA, CAD, TIA, who presents to the emergency department chief complaint of chest pain and not feeling well he states that his symptoms are about 20 minutes prior to arrival. Patient notes that he was driving when his symptoms started and he states that normally he can go home and take his medications and things will improve. He states that things are getting better therefore he came here to be further evaluated as he states that he developed some blurry vision. Patient when he arrived here in the emergency department states that he just does not feel well. States that he is having chest pain rating to his back. [facility] Medical History GERD (gastroesophageal reflux disease) Dark emesis Diarrhea TIA (transient ischemic attack) CAD (coronary artery disease) Heart attack SOFIA (obstructive sleep apnea) Crohn's colitis DM2 (diabetes mellitus, type 2) HTN (hypertension) Home Medications ?Medication ?Instructions ?Recorded ?Last Taken ?Type omeprazole 40 mg capsule,delayed 40 mg PO QDAY 07/21/24 Unknown History release rosuvastatin 20 mg tablet (Crestor) 20 mg PO QDAY 07/21/24 Unknown History famotidine 40 mg tablet 40 mg PO QHS #30 tabs 07/22/24 Unknown Rx acetaminophen 500 mg tablet 500 mg PO Q6H PRN fever or pain 09/20/24 Unknown History (Tylenol Extra Strength) clopidogrel 75 mg tablet (Plavix) 75 mg PO DAILY #30 tabs 11/28/24 Unknown Rx Allergy/AdvReac Type Severity Reaction Status Date / Time Iodinated Contrast Media Allergy Severe Anaphylaxis Verified 11/27/24 22:13 Family History Mother Diabetes Father Diabetes Hypertension Social History Smoking Status: Current every day smoker tobacco type: cigarettes alcohol intake: former substance use type: marijuana ROS ROS ED ROS Narrative Constitutional: Denies headache, fevers, chills Eyes: Denies double vision Cardiovascular: Complains of chest pain as noted above denies palpitations Respiratory:: Shortness of breath denies coughing wheezing Abdomen: Complains of abdominal pain : Denies urinary symptoms Neurological: Denies any numbness, weakness, tingling Musculoskeletal: Complains of back pain Skin: Denies any rashes or lesions EXAM Physical Exam Narrative Exam Narrative: General: Patient was lying in bed rest comfortably did appear to be uncomfortable secondary to his pain Head: Atraumatic, normocephalic Eyes: PERRL bilaterally, EOMI bilaterally, no conjunctival injection noted Neck: Soft, supple, trachea midline Cardiovascular: Patient tachycardic with a regular rhythm Respiratory: Clear to auscultation bilaterally Abdomen: Soft, nondistended, diffuse tenderness to palpation Extremities: +5/5 strength noted in the bilateral lower extremities Neurological: Patient following commands that he was at [facility] year is 2024 Skin: Warm, dry, tact no rashes or lesions noted Const Vital Signs: 11/27/24 22:13 11/27/24 22:36 11/27/24 22:43 Temperature 98.2 F 98.7 F Temperature Source Oral Temporal Pulse Rate 116 H 116 H Respiratory Rate 22 H 16 Blood Pressure 155/121 H 154/116 H Blood Pressure Mean 132 128 Pulse Ox 100 98 Oxygen Delivery Method Room Air Room Air Room Air 11/27/24 22:57 11/27/24 23:01 11/27/24 23:13 Temperature 97.8 F Temperature Source Oral Pulse Rate 106 H 110 H 99 Respiratory Rate 18 18 18 Blood Pressure 159/111 H 156/109 H 147/92 H Blood Pressure Mean 127 124 110 Pulse Ox 93 98 98 Oxygen Delivery Method Room Air Room Air Room Air 11/27/24 23:30 11/28/24 00:00 11/28/24 00:30 Temperature Temperature Source Pulse Rate 103 H 99 96 Respiratory Rate 18 16 19 H Blood Pressure 135/97 H 138/91 H 142/92 H Blood Pressure Mean 109 106 108 Pulse Ox 98 97 99 Oxygen Delivery Method Room Air Room Air Room Air 11/28/24 01:22 Temperature 98.1 F Temperature Source Pulse Rate 98 Respiratory Rate 18 Blood Pressure 137/94 H Blood Pressure Mean 108 Pulse Ox 95 Oxygen Delivery Method MDM MDM MDM Narrative Medical decision making narrative: Patient is a 34-year-old male who presents to the emergency department chief complaint chest pain, shortness of breath and not feeling well. On the differential this includes but not limited to ACS, pneumonia, pneumothorax, flash pulmonary edema, aortic dissection, hemorrhagic stroke, ischemic stroke. Once workup is obtained reviewed he will be reevaluated. Staff came and notified me that the developed slurred speech after I left the room therefore I went back in and reevaluated the patient and he is having slurred speech, left upper and lower extremity weakness therefore stroke alert was called. I did do a quick bedside ultrasound looking for evidence of dissection since he was complaining of chest pain rating to his back this was limited by his body habitus and he was unable to lie flat. Patient is noted to have a anaphylactic allergy to iodine therefore we will start with basic CTs and proceed with workup from there. Patient does state that he does develop anaphylaxis after receiving contrast he states that this throat swelled and his tongue became very swollen as well he states that this happened several years ago. At 10:50 PM bilateral blood pressures were obtained and in his right arm he had a systolic pressure 164 and in the left arm he had a systolic pressure 154. Radial pulses are symmetric bilaterally. Also when the patient returned from CT reevaluation the patient had improvement of his left arm weakness and his left lower extremity weakness he does have weakness still however he is now able to hold them up in the air but they are weak. Therefore at this point time patient is not a tenecteplase candidate with improvement of his symptoms. Patient's CBC reviewed and showed a white blood count of 12,000, hemoglobin 15.1, plate count of 405. Patient INR 1, PT normal at 12.9. Push sodium normal 141, potassium was 3.6, creatinine 1.17. Patient AST and ALT are 32 and 60 respectively. Patient troponin was less than 6 with a delta troponin of less than 6, EKG reviewed which showed sinus tachycardia with a rate of 119 bpm SC interval 178. Patient's proBNP was less than 36. Patient [id number] glucose was 102. Patient's CT brain without contrast showed no evidence of acute intracranial hemorrhage infarct or significant mass effect. Discussed results with the patient and after discussion he states that he needs to go home and needs to follow-up with his spine surgeon who has been waiting months to see. He states that he needs to figure out his back as he needs to provide for his family and cannot miss this appointment as they are scheduling out till the end of December or January if he misses his appointment he states that he got frandy and there was a cancellation allowing him to be seen by this doctor. Advised him that he could have worsening symptoms and further stroke like symptoms which could ultimately lead to his . He verbalized understanding of this. He is already on aspirin and a statin at this point time therefore right now we will increase his medications to include Plavix he will be given a dose here in the emergency department and a prescription to the pharmacy. He is requesting a new primary care physician as well as a hand cooper helper which he was referred to as well. He was encouraged return with worsening symptoms and concerns. He is agreeable this plan as well as significant other at bedside all question concerns answered at bedside. He will leave AGAINST MEDICAL ADVICE Lab Data Labs: Laboratory Results - last 24 hr 11/27/24 11/27/24 11/27/24 22:22 22:22 22:22 WBC 12.9 H RBC 5.38 Hgb 15.1 Hct 44.5 MCV 82.7 MCH 28.1 MCHC 33.9 RDW Std Deviation 37.3 RDW Coeff of Colten 12.5 Plt Count 405 MPV 10.5 Immature Gran % (Auto) 0.600 Neut % (Auto) 57.0 Lymph % (Auto) 30.0 [place] % (Auto) 8.8 Eos % (Auto) 2.7 Baso % (Auto) 0.9 Absolute Neuts (auto) 7.3 Absolute Lymphs (auto) 3.85 Nucleated RBC % 0 PT 12.9 INR 1.0 APTT 23.5 L Sodium Cancelled 141 Potassium Cancelled 3.6 Chloride Cancelled Carbon Dioxide Anion Gap BUN Creatinine Estim Creat Clear Calc Est GFR (MDRD) Non-Af BUN/Creatinine Ratio Glucose Calcium Total Bilirubin Direct Bilirubin AST ALT Alkaline Phosphatase Troponin T High Sens Troponin T Hi Sens 2 Hr NT pro BNP II Total Protein Albumin Globulin POC Glucose 11/27/24 11/27/24 11/27/24 22:22 22:22 22:22 WBC RBC Hgb Hct MCV MCH MCHC RDW Std Deviation RDW Coeff of Colten Plt Count MPV Immature Gran % (Auto) Neut % (Auto) Lymph % (Auto) [place] % (Auto) Eos % (Auto) Baso % (Auto) Absolute Neuts (auto) Absolute Lymphs (auto) Nucleated RBC % PT INR APTT Sodium Potassium Chloride 102 Carbon Dioxide Cancelled 22.6 Anion Gap Cancelled 16 H BUN Cancelled Creatinine Estim Creat Clear Calc Est GFR (MDRD) Non-Af BUN/Creatinine Ratio Glucose Calcium Total Bilirubin Direct Bilirubin AST ALT Alkaline Phosphatase Troponin T High Sens Troponin T Hi Sens 2 Hr NT pro BNP II Total Protein Albumin Globulin POC Glucose 11/27/24 11/27/24 11/27/24 22:22 22:22 22:22 WBC RBC Hgb Hct MCV MCH MCHC RDW Std Deviation RDW Coeff of Colten Plt Count MPV Immature Gran % (Auto) Neut % (Auto) Lymph % (Auto) [place] % (Auto) Eos % (Auto) Baso % (Auto) Absolute Neuts (auto) Absolute Lymphs (auto) Nucleated RBC % PT INR APTT Sodium Potassium Chloride Carbon Dioxide Anion Gap BUN 13 Creatinine Cancelled 1.17 Estim Creat Clear Calc Cancelled 112.92 Est GFR (MDRD) Non-Af Cancelled BUN/Creatinine Ratio Glucose Calcium Total Bilirubin Direct Bilirubin AST ALT Alkaline Phosphatase Troponin T High Sens Troponin T Hi Sens 2 Hr NT pro BNP II Total Protein Albumin Globulin POC Glucose 11/27/24 11/27/24 11/27/24 22:22 22:22 22:22 WBC RBC Hgb Hct MCV MCH MCHC RDW Std Deviation RDW Coeff of Colten Plt Count MPV Immature Gran % (Auto) Neut % (Auto) Lymph % (Auto) [place] % (Auto) Eos % (Auto) Baso % (Auto) Absolute Neuts (auto) Absolute Lymphs (auto) Nucleated RBC % PT INR APTT Sodium Potassium Chloride Carbon Dioxide Anion Gap BUN Creatinine Estim Creat Clear Calc Est GFR (MDRD) Non-Af 84 BUN/Creatinine Ratio Cancelled 11.1 Glucose Cancelled 96 Calcium Cancelled Total Bilirubin Direct Bilirubin AST ALT Alkaline Phosphatase Troponin T High Sens Troponin T Hi Sens 2 Hr NT pro BNP II Total Protein Albumin Globulin POC Glucose 11/27/24 11/27/24 11/27/24 22:22 22:22 22:35 WBC RBC Hgb Hct MCV MCH MCHC RDW Std Deviation RDW Coeff of Colten Plt Count MPV Immature Gran % (Auto) Neut % (Auto) Lymph % (Auto) [place] % (Auto) Eos % (Auto) Baso % (Auto) Absolute Neuts (auto) Absolute Lymphs (auto) Nucleated RBC % PT INR APTT Sodium Potassium Chloride Carbon Dioxide Anion Gap BUN Creatinine Estim Creat Clear Calc Est GFR (MDRD) Non-Af BUN/Creatinine Ratio Glucose Calcium 10.5 Total Bilirubin 0.40 Direct Bilirubin 0.19 AST 32 ALT 68 H Alkaline Phosphatase 167 H Troponin T High Sens < 6 Troponin T Hi Sens 2 Hr NT pro BNP II Cancelled < 36 Total Protein 7.9 Albumin 4.8 Globulin 3.2 POC Glucose 102 11/28/24 00:36 WBC RBC Hgb Hct MCV MCH MCHC RDW Std Deviation RDW Coeff of Colten Plt Count MPV Immature Gran % (Auto) Neut % (Auto) Lymph % (Auto) [place] % (Auto) Eos % (Auto) Baso % (Auto) Absolute Neuts (auto) Absolute Lymphs (auto) Nucleated RBC % PT INR APTT Sodium Potassium Chloride Carbon Dioxide Anion Gap BUN Creatinine Estim Creat Clear Calc Est GFR (MDRD) Non-Af BUN/Creatinine Ratio Glucose Calcium Total Bilirubin Direct Bilirubin AST ALT Alkaline Phosphatase Troponin T High Sens Troponin T Hi Sens 2 Hr < 6 NT pro BNP II Total Protein Albumin Globulin POC Glucose Radiography Diagnostic Testing: Clinical Impression(s) from Imaging Studies Brain CT 11/27/24 22:31 IMPRESSION: No CT evidence of acute intracranial hemorrhage, infarct, or significant mass effect. Reading Location: [facility] Discharge Plan Triage Chief Complaint: Chest Pain ED Provider: Rufus Perez Dx/Rx/DC Orders Clinical Impression: Slurred speech, Left arm weakness, Left leg weakness, Hypertension, DM2 (diabetes mellitus, type 2) Prescriptions: New clopidogrel [Plavix] 75 mg tablet 75 mg PO DAILY Qty: 30 0RF No Action omeprazole 40 mg capsule,delayed release(DR/EC) 40 mg PO QDAY rosuvastatin [Crestor] 20 mg tablet 20 mg PO QDAY famotidine 40 mg tablet 40 mg PO QHS Qty: 30 0RF acetaminophen [Tylenol Extra Strength] 500 mg tablet 500 mg PO Q6H PRN (Reason: fever or pain) Primary Care Provider: Nighat Caballero Referrals: Nighat Caballero DO [Primary Care Provider, Family Practice] Sam Webster MD [Med Staff - Active Staff, Cardiology] Trent Christiansen MD [Med Staff - Active Staff, Family Practice] Activity Restrictions/Additional Instructions: Take your aspirin and other medications as prescribed I did send Plavix to your pharmacy which you need to start taking as well. Follow-up the doctor is referred to return with worsening symptoms or other concerns. Print Language: Vincentian Disposition Disposition: Home, Self Care
[2024-11-27 22:43] VITALS: BP 154/116; PULSE 116; RESP 16; TEMP 37.1; O2SAT 98
[2024-11-27 22:44] LABS: Hematocrit 44.5 % (40-54); Hemoglobin 15.1 g/dL (13.0-16.5); Immature Granulocytes Count 0.080 X10^3/uL (0.0-0.0); Mean Corp Hgb Conc 33.9 g/dL (32-36); Mean Corpuscular Volume 82.7 fL (80-94); Mean Platelet Vol. 10.5 fl (6.2-12.0); NRBC Flagged by Analyzer 0 % (0-5); Platelet Count 405 K/mm3 (150-450); RBC Distribution Width CV 12.5 % (11.6-14.6); RBC Distribution Width SD 37.3 fl (35.1-43.9); Red Blood Count 5.38 M/mm3 (4.6-6.2); White Blood Count 12.9 K/mm3 (4.4-11.0)
[2024-11-27 22:52] LABS: Prothrombin Time (Protime)PT. 12.9 SECONDS (11.7-14.9)
[2024-11-27 22:53] LABS: Partial Thromboplast Time 23.5 Seconds (24.1-36.2)
[2024-11-27 22:57] VITALS: BP 159/111; PULSE 106; RESP 18; O2SAT 93
[2024-11-27] MEDS: 0.9% Normal Saline (1000mL) 1,000 ML 999 ML IV (22:59)
[2024-11-27 23:01] VITALS: BP 156/109; PULSE 110; RESP 18; TEMP 36.6; O2SAT 98
[2024-11-27 23:09] LABS: AST(SGOT) 32 U/L (<=37); Alanine Aminotransfer ALT/SGPT 68 U/L (<=46); Albumin, Serum 4.8 g/dL (3.5-5.0); Alkaline Phosphatase 167 U/L (40-129); Anion Gap 16 (5-15); BUN 13 mg/dL (4-19); BUN/Creat Ratio 11.1 RATIO (10-20); Bilirubin, Direct 0.19 mg/dL (0.00-0.30); Calcium,Total 10.5 mg/dL (7.6-11.0); Carbon Dioxide 22.6 mmol/L (21.0-32.0); Chloride 102 mmol/L (98-108); Estimated Creatinine Clearance 112.92 ml/min (50-250); Globulin 3.2 g/dL (2.2-4.2); Glucose 96 mg/dL (70-99); Potassium 3.6 mmol/L (3.3-5.1)
[2024-11-27 23:13] VITALS: BP 147/92; PULSE 99; RESP 18; O2SAT 98
[2024-11-27 23:14] LABS: Pro- Brain NATRIURETIC PEPTIDE < 36 pg/mL (<=450); Troponin T High Sensitivity < 6 ng/L (<=22)
[2024-11-27 23:30] VITALS: BP 135/97; PULSE 103; RESP 18; O2SAT 98
[2024-11-27] MEDS: Orphenadrine 60 MG/2 ML Ampul 30 MG IV (23:56)
[2024-11-28] VITALS: BP 138/91; PULSE 99; RESP 16; O2SAT 97
[2024-11-28 00:30] VITALS: BP 142/92; PULSE 96; RESP 19; O2SAT 99
[2024-11-28 00:58] LABS: Troponin T High Sens 2 HR < 6 ng/L (<=22)
[2024-11-28 01:22] VITALS: BP 137/94; PULSE 98; RESP 18; TEMP 36.7; O2SAT 95
== END 2024-11-28 01:35 | disposition left against medical advice (07) ==
PROVIDERS: Emergency Provider Emergency Medicine; PCP Student in an Organized Health Care Education/Training Program; Visit Provider Emergency Medicine
DX: R07.9 Chest pain, unspecified (principal); E11.9 Type 2 diabetes mellitus without complications; I25.10 Atherosclerotic heart disease of native coronary artery without angina pectoris; R47.81 Slurred speech; Z86.73 Personal history of transient ischemic attack (TIA), and cerebral infarction without residual deficits; K21.9 Gastro-esophageal reflux disease without esophagitis; Z79.899 Other long term (current) drug therapy; F17.210 Nicotine dependence, cigarettes, uncomplicated; I10 Essential (primary) hypertension; R29.898 Other symptoms and signs involving the musculoskeletal system
CPT/HCPCS: 70450; 80048; 80076; 82962; 83880; 84484; 85025; 85610; 85730; 93005; 96361; 96374; 99285; A4216

== ENCOUNTER 2024-12-13 10:00 | Outpatient (RCR) | payer MEDICAID, SELFPAY ==
--- NOTE | 2024-11-14 18:23 | HP.PTEVAL_ITS ---
Patient's Visit Information Visit Information Visit Information: VITO JEWELL is a 34 year old M referred to Physical Therapy by Dr. Adonis Sanderson MD with a diagnosis of LUMBAR RADICULOPATHY,CERVICAL RADICULOPATHY. Date of Evaluation: 11/14/24 Physical Therapist: Pablo Srivastava, PT, Cert MDT, OCS Visit Plan Frequency: 2x /Week Duration: 4 Weeks Plan: PT INTERVENTIONS AQUATIC THERAPY LUMBAR ROM ,LE FLEXABILITY ,DLS ,POSTURAL EX'S , AND AEROBIC E'S Subjective Subjective: This 34 y/o male presents to physical therapy with lumbar radiculopathy and cervical radiculopathy . Patient has lumbar pain for many years.Patient describes a sharp, stabbing, sore, achy, and throbbing. The pain is so bad he can't get out of bed. Patient gets really bad back spasms. He does get numbness and tingling in both feet and toes, but mainly in the left. The pain goes into the left hip. This will go down the back of the leg all the way to the toes. The left is worse than the right, however he does have pain and tingling in both legs. Patient has multiple trauma over the years. Patient seem management does not want injections . X-rays showed Moderate endplate degenerative changes and disc disease of T12-L1 with anterior spurring. MRI scheduled lumbar 11/23. Coughing/sneezing-. Bowel/bladder-. Aggravating factors lifting ,bending ,walking ,sitting. .Walking rest. Intermittent neck pain looking down ,driving. Denies CLAROS ,tinnitus/nausea. Patient condition affects QOL/function/job demands. VOACTION: [facility] SOCIAL: ,5 childern Pain Bilateral Back: Pain Intensity (Out of 10): 7 Pain Intensity Range: 9 and 10 Left Hip: Pain Intensity (Out of 10): 6 Pain Intensity Range: 9 and 10 Bilateral Neck: Pain Intensity (Out of 10): 1 Pain Intensity Range: 5 Objective Objective: POSTURE: mild forward posture GAIT: reciprocal pattern antalgic gait slow dheeraj NEURO : denies paresthesia/tingling ,reflexes L3-4,L4-5,L5-S1 3/3 ,C5-6-7 2/3 FLEXABILITY: mod tight PROM HIP IR: 5 DEGREES MMT: quads/hams 4/5 ,hip flexion 4-/5 ,ankle 5/5 ,BUE Grossly 4/5 LUMBAR ROM : flexion mod loss ,extension mod/severe loss ,side glides mod loss CERVICAL ROM: flexion min loss ,extension mod loss ,rotation mod loss ,lateral flexion mod loss Special Tests C/S Radiculapathy - Left Upper limb tension test: Negative C/S Radiculapathy - Right Upper limb tension test: Negative C/S Radiculapathy - Left Spurlings: Negative C/S Radiculapathy - Right Spurlings: Negative C/S Radiculapathy - Left Cervical distraction: Negative C/S Radiculapathy - Right Cervical distraction: Negative Sharp Molly: Negative Vertebral Artery Test: Negative Alar Ligament Test: Negative L/S Slump test left side: Negative L/S Slump test right side: Negative L/S Left Straight Leg Raise: Negative L/S Right Straight Leg Raise: Negative Balance/Special Test Scores Oswestry Low Back Score: 27 Goals Goal 1:: Patient to be I with HEP and Aquatic therapy program to mange symptoms Goal Time Frame: 4-6 Weeks Goal 2:: Patient to 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 /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 90% Goal Time Frame: 4-6 Weeks Goal 3:: Patient to improve lumbar ROM for function of recovery for ADLS and job demands Goal Time Frame: 4-6 Weeks Goal 4:: Patient to improve back oswestry score by 5 points to improve QOL and function Goal Time Frame: 4-6 Weeks Goal 5:: Patient to demonstrate 50% improvement with less pain and improved function with ADLS and job demanbds Goal Time Frame: 4-6 Weeks Rehabilitation Potential Physical Therapy Diagnosis: This patient has lumbar pain with symptoms in legs with paresthesia/tingling with pain in back pain worse with position/motion testing ,worse with bending/lifting and intermittent neck pain thus benefit from skilled PT Rehabilitation Potential: Fair Anticipated Interventions Patient/Client Instruction: Educate patient on: Condition and Plan of Care For the Purpose of:: To decrease pain, To increase ROM, To improve muscle performance and motor function, To improve ability to perform ADL's, To increase tolerance to activity/condition/position, To improve performance and independence with ADL's, To improve ability of physical actions for home/community/work/leisure, To improve health of tissue, To decrease soft tissue restriction, To increase flexibility/ROM, To reduce risk of recurrence and To improve tolerance to ADL's Therapeutic Exercise to Include: Strength training, Postural training, Flexibil ty training, In an aquatic setting, Passive ROM and Active ROM For the Purpose of:: To decrease pain, To increase ROM, To improve muscle performance and motor function, To improve ability to perform ADL's, To increase tolerance to activity/condition/position, To improve ability of physical actions for home/community/work/leisure, To improve health of tissue, To decrease soft tissue restriction, To increase flexibility/ROM, To reduce risk of recurrence and To improve tolerance to ADL's Text: Thank you for the opportunity to evaluate your patient. For Medicare and Medicare HMO plans, please review the plan of care and approve it. It will need to be FAXED BACK to us at [phone] for Medicare purposes. For Medicare only, by signing this I certify the plan of care. Please let me know if there are questions or concerns regarding this plan of care. Physician Signature: Date:
--- NOTE | 2024-12-13 10:20 | HP.PTDCSUM_ITS ---
Discharge Summary D/C summary: It has been my pleasure to treat VITO JEWELL referred by Dr. Adonis Sanderson MD, with the diagnosis of LUMBAR RADICULOPATHY,CERVICAL RADICULOPATHY for a total of 9 visit(s). Discharge Date: 12/13/24 Please see the following information for a summary of their discharge status. Subjective Subjective: Doing okay ,pain helped with pain for 1-2 hrs returns to baseline Plan to see surgeon [facility] back surgeon Neurontin Oxycodone Pain Bilateral Back: Pain Intensity (Out of 10): 7 Left Hip: Pain Intensity (Out of 10): 6 Bilateral Neck: Pain Intensity (Out of 10): 3 L KNEE: Pain Intensity (Out of 10): 5 B HIPS: Pain Intensity (Out of 10): 6 Objective Objective/Function: POSTURE: mild forward posture GAIT: reciprocal pattern antalgic gait slow dheeraj NEURO : denies paresthesia/tingling ,reflexes L3-4,L4-5,L5-S1 3/3 ,C5-6-7 2/3 FLEXABILITY: mod tight PROM HIP IR: 5 DEGREES MMT: quads/hams 4/5 ,hip flexion 4-/5 ,ankle 5/5 ,BUE Grossly 4/5 LUMBAR ROM : flexion WFL ,extension mod ,side glides mod loss CERVICAL ROM: flexion min loss ,extension mod loss ,rotation mod loss ,lateral flexion mod loss Goals Goal 1:: Patient to be I with HEP and Aquatic therapy program to mange symptoms Goal Progress: Progressing Goal 2:: 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% Goal Progress: Not Progressing Goal 3:: Patient to improve lumbar ROM for function of recovery for ADLS and job demands Goal Progress: Not Progressing Goal 4:: Patient to improve back oswestry score by 5 points to improve QOL and function Goal Progress: Progressing Goal 5:: Patient to demonstrate 50% improvement with less pain and improved function with ADLS and job demanbds Goal Progress: Not Progressing Plan Plan: RTD surgeon D/C Information Discharge Comments: RTD d/c sentence: If there are questions or concerns regarding this patient's physical therapy, please feel free to call me at [phone]. Thank you for the referral of this patient. Sincerely, Pablo Srivastava, PT, Cert MDT, OCS Balance/Gait/Functional tests Balance/Special Test Scores Oswestry Low Back Score: 24
== END 2024-12-13 19:00 | disposition home or self-care (01) ==
LOC: PT 10:00
PROVIDERS: PCP Student in an Organized Health Care Education/Training Program; Referring Provider Anesthesiology; Visit Provider Anesthesiology
DX: M54.12 Radiculopathy, cervical region (principal); M54.16 Radiculopathy, lumbar region
CPT/HCPCS: 97113; 97162; 97530

== ENCOUNTER 2024-12-19 00:50 | Emergency (ER) | payer MEDICAID, SELFPAY ==
[2024-12-19 00:51] VITALS: BP 144/99; PULSE 107; RESP 22; TEMP 36.7; O2SAT 98; BMI 36.0
[2024-12-19 01:19] LABS: Mucous, Urine 0 SEEN /hpf (<or=2+)
[2024-12-19 01:21] LABS: Color, Urine Red (Yellow); Glucose, Dipstick 100 mg/dl (Normal); Ketone-Dipstick 5 mg/dl (Negative); Leukocyte Esterase-Dipstick 25 /ul (Negative); Nitrite-Dipstick Negative (Negative); Occult Blood-Urine 250 /ul (Negative); Protein-Dipstick 100 mg/dl (Negative); Specific Gravity, Urine 1.025 (1.002-1.030); Urine Bilirubin Dipstick Negative (Negative)
[2024-12-19 01:39] LABS: Hematocrit 41.8 % (40-54); Hemoglobin 14.0 g/dL (13.0-16.5); Immature Granulocytes Count 0.040 X10^3/uL (0.0-0.0); Mean Corp Hgb Conc 33.5 g/dL (32-36); Mean Corpuscular Volume 83.6 fL (80-94); Mean Platelet Vol. 10.1 fl (6.2-12.0); NRBC Flagged by Analyzer 0 % (0-5); Platelet Count 362 K/mm3 (150-450); RBC Distribution Width CV 12.5 % (11.6-14.6); RBC Distribution Width SD 37.9 fl (35.1-43.9); Red Blood Count 5.00 M/mm3 (4.6-6.2); White Blood Count 9.6 K/mm3 (4.4-11.0)
[2024-12-19 01:55] LABS: Squamous Epithelial Cells - UA 0-5 SEEN /hpf (0-5)
[2024-12-19 01:56] LABS: Red Blood Cells-Urine > 100 SEEN /hpf (0-5)
[2024-12-19 02:00] LABS: AST(SGOT) 27 U/L (<=37); Alanine Aminotransfer ALT/SGPT 62 U/L (<=46); Albumin, Serum 4.3 g/dL (3.5-5.0); Alkaline Phosphatase 140 U/L (40-129); Anion Gap 12 (5-15); BUN 18 mg/dL (4-19); BUN/Creat Ratio 16.2 RATIO (10-20); Calcium,Total 9.2 mg/dL (7.6-11.0); Carbon Dioxide 23.5 mmol/L (21.0-32.0); Chloride 103 mmol/L (98-108); Estimated Creatinine Clearance 120.96 ml/min (50-250); Globulin 2.4 g/dL (2.2-4.2); Glucose 160 mg/dL (70-99); Potassium 3.5 mmol/L (3.3-5.1)
[2024-12-19] MEDS: 0.9% Normal Saline (1000mL) 1,000 ML 999 ML IV (02:03)
[2024-12-19 03:12] VITALS: PULSE 86; RESP 16; O2SAT 98
[2024-12-19 03:23] VITALS: BP 126/86; PULSE 86; RESP 16; TEMP 36.7; O2SAT 98
== END 2024-12-19 03:25 | disposition home or self-care (01) ==
PROVIDERS: Emergency Provider Student in an Organized Health Care Education/Training Program; PCP Student in an Organized Health Care Education/Training Program; Visit Provider Student in an Organized Health Care Education/Training Program
DX: N20.2 Calculus of kidney with calculus of ureter (principal); E11.9 Type 2 diabetes mellitus without complications; R10.32 Left lower quadrant pain; I10 Essential (primary) hypertension; I25.10 Atherosclerotic heart disease of native coronary artery without angina pectoris; Z86.73 Personal history of transient ischemic attack (TIA), and cerebral infarction without residual deficits; K21.9 Gastro-esophageal reflux disease without esophagitis; Z79.899 Other long term (current) drug therapy; F17.210 Nicotine dependence, cigarettes, uncomplicated; Z79.02 Long term (current) use of antithrombotics/antiplatelets; R31.9 Hematuria, unspecified
CPT/HCPCS: 74176; 80053; 81001; 85025; 96361; 96374; 99283; A4216

== ENCOUNTER → 2025-01-04 | Outpatient (CLI) | payer MEDICAID, SELFPAY | END | disposition home or self-care (01) | PROVIDERS: PCP Nurse Practitioner Family; Referring Provider Internal Medicine Cardiovascular Disease; Visit Provider Internal Medicine Cardiovascular Disease | DX: I10 Essential (primary) hypertension (principal) | CPT/HCPCS: 93788 ==

== ENCOUNTER → 2025-01-05 | Outpatient (CLI) | payer MEDICAID, SELFPAY ==
--- NOTE | 2025-01-05 10:53 | ECHOCS_ITS ---
Reason For Study Reason For Study: HYPERTENSION Procedure This was a 2D Doppler, Color Flow transthoracic echocardiogram. The study was technically difficult. Contrast injection was performed. Exam performed in department. Left Ventricle Normal LV size. The LV ejection fraction is 60 %. Left ventricular systolic function is normal. Normal diastololic function. No regional wall motion abnormalities noted. Right Ventricle Normal RV size. Normal RV systolic Function. Atria Normal left atrium. Normal right atrium. RA pressure normal. Mitral Valve The mitral valve is structurally normal. No prolapse or stenosis seen. There is no stenosis. No mitral valve insufficiency. Tricuspid Valve Normal tricuspid valve. There is no tricuspid stenosis. Unable to estimate RV systolic pressure due to inadequate jet, pulmonary artery pressure probably normal. Aortic Valve Normal aortic valve. Trisinus/trileaflet aortic valve. There is no aortic stenosis. No aortic valve insufficiency. Pulmonic Valve Normal pulmonic valve. There is no pulmonic valvular stenosis. No pulmonic valve insufficiency. Great Vessels Normal sized aortic root. Normal ascending aorta. Pericardium/Pleural No pericardial effusion. Medication 22 gauge I.V. with prn adaptor inserted into right arm. Diluted definity 1.5ml given slow IV push to enhance endocardial definition. MMode/2D Measurements & Calculations LVIDd: 5.0 cm IVSd: 1.1 cm Ao root diam: 3.6 cm LVIDs: 3.1 cm LVPWd: 1.0 cm RVDd: 3.2 cm FS: 37.7 % LAV(MOD-bp): 41.2 ml LVAd ap4: 26.3 cm2 LVAd ap2: 23.5 cm2 LAV(MOD-bp) Indexed: 17.6 ml/m2 LVLd ap4: 8.1 cm LVLd ap2: 7.9 cm LAV(MOD-sp2): 36.9 ml EDV(MOD-sp4): 68.4 ml EDV(MOD-sp2): 57.2 ml LAV(MOD-sp4): 38.4 ml EDV(sp4-el): 72.2 ml EDV(sp2-el): 59.7 ml LVAs ap4: 15.4 cm2 LVAs ap2: 13.8 cm2 LVLs ap4: 7.2 cm LVLs ap2: 6.8 cm ESV(MOD-sp4): 27.1 ml ESV(MOD-sp2): 23.2 ml ESV(sp4-el): 27.9 ml ESV(sp2-el): 23.5 ml EF(MOD-sp4): 60.3 % EF(MOD-sp2): 59.5 % EF(sp4-el): 61.4 % SV(MOD-sp4): 41.2 ml SV(MOD-sp2): 34.1 ml SV(sp4-el): 44.3 ml SI(MOD-sp4): 17.6 ml/m2 SI(MOD-sp2): 14.6 ml/m2 LA A4 area: 15.7 cm2 LA dimension(2D): 4.1 cm RA A4 area: 15.7 cm2 TAPSE: 1.7 cm Time Measurements MV dec time: 0.22 sec Doppler Measurements & Calculations MV E max bar: 86.4 cm/sec Lat Peak E' Bar: 13.4 cm/sec Med Peak E' Bar: 9.6 cm/sec MV A max bar: 64.3 cm/sec E/E' lat: 6.4 E/E' med: 9.0 MV E/A: 1.3 MV dec slope: 389.9 cm/sec2 Ao V2 max: 125.5 cm/sec LV V1 max: 87.8 cm/sec Ao max P.3 mmHg LV V1 max P.1 mmHg Ao V2 mean: 99.3 cm/sec LV V1 mean P.1 mmHg Ao mean P.2 mmHg LV V1 mean: 70.8 cm/sec Ao V2 VTI: 22.7 cm LV V1 VTI: 16.2 cm AV (velocity ratio): 0.71 PA V2 max: 122.5 cm/sec ECHO/Echo Complete W/ Contrast Interpretation Summary The LV ejection fraction is 60 %. Left ventricular systolic function is normal. Normal LV diastolic function No regional wall motion abnormalities noted. Normal RV systolic Function There is no hemodynamically significant valvular disease. Ordering Physician: Kentrell Yost Referring Physician: Tran Worley Performed By: Jesika Hudson RDCS
== END | disposition home or self-care (01) ==
LOC: CVS 10:53
PROVIDERS: PCP Nurse Practitioner Family; Referring Provider Internal Medicine Cardiovascular Disease; Visit Provider Internal Medicine Cardiovascular Disease
DX: I10 Essential (primary) hypertension (principal)
CPT/HCPCS: 93306; Q9957; A4216; C8929